=== PATIENT | male | born 1960 | race Caucasian/White ===

== ENCOUNTER 2017-09-29 19:44 | Emergency (ER) | payer MEDICAID, OTHER, SELFPAY ==
[2017-09-29 20:20] LABS: BASO % 0.4 % (0.0-1.0); EOS # 0.1 10^3/uL (0.0-0.50); EOS % 0.7 % (0.0-3.0); HEMATOCRIT 47.3 % (42.0-52.0); HEMOGLOBIN 16.5 g/dl (13.5-17.5); IMMATURE GRANULOCYTE % 0.5 % (0-3.0); LYMPH # 1.9 10^3/uL (1.5-4.5); LYMPH % 22.2 % (24.0-44.0); MEAN CORPUSCULAR HEMOGLOBIN 32.4 pg (27.0-33.0); MEAN CORPUSCULAR HGB CONC 34.9 g/dl (32.0-36.5); MEAN CORPUSCULAR VOLUME 92.9 fl (80.0-96.0); MONO # 0.6 10^3/uL (0.0-0.8); MONO % 6.6 % (0.0-5.0); NEUTROPHILS # 5.9 10^3/uL (1.8-7.7); NEUTROPHILS % 69.6 % (36.0-66.0); PLATELET COUNT, AUTOMATED 228 10^3/uL (150-450); RED BLOOD COUNT 5.09 10^6/uL (4.30-6.10); RED CELL DISTRIBUTION WIDTH 11.6 % (11.5-14.5); WHITE BLOOD COUNT 8.5 10^3/uL (4.0-10.0)
[2017-09-29] MEDS: MECLIZINE 25 MG TABLET PO (20:29)
[2017-09-29] MEDS: LABETALOL HCL 100 MG/20 ML VIAL IV (20:30)
[2017-09-29] MEDS: NS 1,000 ML IV (20:30)
[2017-09-29 20:44] LABS: ALBUMIN 4.1 GM/DL (3.2-5.2); ALBUMIN/GLOBULIN RATIO 1.05 (1.00-1.93); ALKALINE PHOSPHATASE 88 U/L (45-117); ALT/SGPT 36 U/L (12-78); ANION GAP 6 MEQ/L (8-16); AST/SGOT 15 U/L (7-37); BILIRUBIN,DIRECT 0.2 MG/DL (0.0-0.2); BILIRUBIN,TOTAL 0.6 MG/DL (0.2-1.0); BLOOD UREA NITROGEN 13 MG/DL (7-18); CALCIUM LEVEL 8.8 MG/DL (8.5-10.1); CARBON DIOXIDE LEVEL 26 MEQ/L (21-32); CHLORIDE LEVEL 106 MEQ/L (98-107); CPK CREATINE PHOSPHOKINASE 92 U/L (39-308); CREATININE FOR GFR 1.12 MG/DL (0.70-1.30); ETHYL ALCOHOL (ETHANOL) < 0.003 % (0.000-0.010); GLOMERULAR FILTRATION RATE > 60.0 (>56); GLUCOSE, FASTING 103 MG/DL (70-100); POTASSIUM SERUM 3.8 MEQ/L (3.5-5.1); SALICYLATE LEVEL 3.7 MG/DL (5.0-30.0); SODIUM LEVEL 138 MEQ/L (136-145); TROPONIN I < 0.02 NG/ML (< 0.10)
[2017-09-29 20:47] LABS: ACETAMINOPHEN LEVEL < 2.0 UG/ML (10.0-30.0)
[2017-09-29 20:48] LABS: CK-MB VALUE MASS 1.7 NG/ML (<3.6); LITHIUM LEVEL 1.13 MEQ/L (0.60-1.20); MB/CK RELATIVE INDEX 1.84 (< OR =4)
== END 2017-09-29 22:46 | disposition home or self-care (01) ==
LOC: M ED 19:44
DX: H81.10 Benign paroxysmal vertigo, unspecified ear (principal); F90.9 Attention-deficit hyperactivity disorder, unspecified type; Z82.49 Family history of ischemic heart disease and other diseases of the circulatory system
CPT/HCPCS: 71045

== ENCOUNTER 2017-10-15 15:11 | Inpatient (IN) | payer MEDICAID, OTHER, SELFPAY ==
[2017-10-15] MEDS: LORazepam 1 MG TAB PO ×2 (15:51→20:59)
[2017-10-15 16:20] LABS: HEMATOCRIT 45.5 % (42.0-52.0); HEMOGLOBIN 15.8 g/dl (13.5-17.5); MEAN CORPUSCULAR HEMOGLOBIN 32.7 pg (27.0-33.0); MEAN CORPUSCULAR HGB CONC 34.7 g/dl (32.0-36.5); MEAN CORPUSCULAR VOLUME 94.2 fl (80.0-96.0); PLATELET COUNT, AUTOMATED 227 10^3/uL (150-450); RED BLOOD COUNT 4.83 10^6/uL (4.30-6.10); RED CELL DISTRIBUTION WIDTH 11.8 % (11.5-14.5); WHITE BLOOD COUNT 9.4 10^3/uL (4.0-10.0)
[2017-10-15 17:00] LABS: AMPHETAMINES LEVEL URINE POSITIVE (NEGATIVE); BARBITURATES URINE NEGATIVE (NEGATIVE); BENZODIAZEPINES URINE NEGATIVE (NEGATIVE); CANNABINOIDS URINE NEGATIVE (NEGATIVE); COCAINE METABOLITE URINE NEGATIVE (NEGATIVE); METHADONE URINE NEGATIVE (NEGATIVE); OPIATES URINE POSITIVE (NEGATIVE); PHENCYCLIDINE URINE NEGATIVE (NEGATIVE)
[2017-10-15 17:04] LABS: ACETAMINOPHEN LEVEL < 2.0 UG/ML (10.0-30.0); ALBUMIN 4.2 GM/DL (3.2-5.2); ALBUMIN/GLOBULIN RATIO 1.14 (1.00-1.93); ALKALINE PHOSPHATASE 104 U/L (45-117); ALT/SGPT 39 U/L (12-78); ANION GAP 6 MEQ/L (8-16); AST/SGOT 20 U/L (7-37); BILIRUBIN,DIRECT 0.2 MG/DL (0.0-0.2); BILIRUBIN,TOTAL 0.8 MG/DL (0.2-1.0); BLOOD UREA NITROGEN 12 MG/DL (7-18); CALCIUM LEVEL 8.9 MG/DL (8.5-10.1); CARBON DIOXIDE LEVEL 27 MEQ/L (21-32); CHLORIDE LEVEL 105 MEQ/L (98-107); CREATININE FOR GFR 1.12 MG/DL (0.70-1.30); GLOMERULAR FILTRATION RATE > 60.0 (>56); GLUCOSE, FASTING 87 MG/DL (70-100); POTASSIUM SERUM 4.2 MEQ/L (3.5-5.1); SALICYLATE LEVEL 5.8 MG/DL (5.0-30.0); SODIUM LEVEL 138 MEQ/L (136-145); THYROID STIMULATING HORMONE 0.847 uIU/ML (0.358-3.740); TOTAL PROTEIN 7.9 GM/DL (6.4-8.2)
[2017-10-15 17:07] LABS: ETHYL ALCOHOL (ETHANOL) < 0.003 % (0.000-0.010)
[2017-10-15 17:08] LABS: LITHIUM LEVEL < 0.20 MEQ/L (0.60-1.20)
[2017-10-15] MEDS ORDERED: MOM 30ML SUSPENSION UDC PO (18:45)
[2017-10-15] MEDS ORDERED: MAALOX 30 ML SUSP *UDC PO (18:45)
[2017-10-15] MEDS ORDERED: ACETAMINOPHEN TAB 650MG DOSE (2X325MG) PO (18:45)
[2017-10-15] MEDS: NICOTINE 21MG/24HR 1 EA TRANSDERMAL TD (21:25)
[2017-10-15] MEDS ORDERED: LORazepam 2 MG TAB PO (22:30)
[2017-10-15] MEDS ORDERED: MECLIZINE 25 MG TABLET PO (22:30)
[2017-10-15] MEDS: traZODone 50 MG TAB PO (22:33)
[2017-10-15] MEDS: QUEtiapine FUMARATE 100 MG TAB PO (22:33)
[2017-10-15] MEDS: THIAMINE 100 MG TAB PO (22:34)
[2017-10-16] MEDS ORDERED: MULTIVITAMINS/MINERALS THERAP 1 TAB PO (09:00)
[2017-10-16] MEDS: clonazePAM 1 MG TAB PO ×3 (09:00→20:34)
[2017-10-16] MEDS ORDERED: FOLIC ACID 1 MG TAB PO (09:00)
[2017-10-16] MEDS: INFLUENZA QUADRIVALENT PF VACCINE 0.5ML SYRINGE (90686) IM (09:29)
[2017-10-16] MEDS: THIAMINE 100 MG TAB PO ×2 (09:40→20:34)
[2017-10-16] MEDS: NICOTINE 21MG/24HR 1 EA TRANSDERMAL TD (09:41)
[2017-10-16] MEDS ORDERED: PILL CRUSHER/CUTTER 1 EACH XX (10:45)
[2017-10-16] MEDS: GABAPENTIN 100 MG CAP PO (12:05)
[2017-10-16] MEDS: GABAPENTIN 300 MG CAP PO ×2 (17:51→20:34)
[2017-10-16] MEDS: QUEtiapine FUMARATE 100 MG TAB PO (20:34)
[2017-10-17] MEDS: clonazePAM 1 MG TAB PO (08:44)
[2017-10-17] MEDS: GABAPENTIN 300 MG CAP PO (08:44)
[2017-10-17] MEDS: THIAMINE 100 MG TAB PO (08:44)
[2017-10-17] MEDS: NICOTINE 21MG/24HR 1 EA TRANSDERMAL TD (08:44)
[2017-10-17] MEDS: PARoxetine 10MG TABLET PO (08:45)
[2017-10-17] MEDS: GABAPENTIN 100 MG CAP PO (14:56)
[2017-10-17] MEDS ORDERED: QUEtiapine FUMARATE 50 MG TAB PO (21:00)
[2017-10-17] MEDS ORDERED: clonazePAM 1 MG TAB PO (21:00)
== END 2017-10-17 15:15 | disposition home or self-care (01) | DRG 756 ==
LOC: M ED 15:11 → M ED INP 18:31 → M PSY 21:47
DX: F41.1 Generalized anxiety disorder (principal); F33.2 Major depressive disorder, recurrent severe without psychotic features; F10.10 Alcohol abuse, uncomplicated; F17.210 Nicotine dependence, cigarettes, uncomplicated; I10 Essential (primary) hypertension; Z79.899 Other long term (current) drug therapy

== ENCOUNTER → 2018-02-27 | Outpatient (CLI) | payer OTHER, MEDICAID | LOC: M PAIN 11:30 | DX: M54.5 Low back pain (principal); G89.29 Other chronic pain; I10 Essential (primary) hypertension; F32.9 Major depressive disorder, single episode, unspecified; F41.9 Anxiety disorder, unspecified; M19.90 Unspecified osteoarthritis, unspecified site; F17.200 Nicotine dependence, unspecified, uncomplicated | CPT/HCPCS: G0463 ==

== ENCOUNTER → 2018-03-03 | Outpatient (CLI) | payer OTHER, MEDICAID | LOC: M RAD 11:34 | DX: M43.16 Spondylolisthesis, lumbar region (principal); M47.16 Other spondylosis with myelopathy, lumbar region; M54.5 Low back pain | CPT/HCPCS: 72110 ==

== ENCOUNTER → 2018-03-05 | Outpatient (CLI) | payer OTHER, MEDICAID | LOC: M PAIN 12:30 | DX: M54.5 Low back pain (principal); G89.29 Other chronic pain; F32.9 Major depressive disorder, single episode, unspecified; I10 Essential (primary) hypertension; M19.90 Unspecified osteoarthritis, unspecified site; F41.9 Anxiety disorder, unspecified; F17.210 Nicotine dependence, cigarettes, uncomplicated; Z79.899 Other long term (current) drug therapy | CPT/HCPCS: G0463 ==

== ENCOUNTER → 2018-03-19 | Outpatient (CLI) | payer OTHER, MEDICAID | LOC: M PAIN 15:00 | DX: M54.5 Low back pain (principal); G89.29 Other chronic pain; F32.9 Major depressive disorder, single episode, unspecified; F41.9 Anxiety disorder, unspecified; M19.90 Unspecified osteoarthritis, unspecified site; I10 Essential (primary) hypertension; F17.210 Nicotine dependence, cigarettes, uncomplicated; Z79.899 Other long term (current) drug therapy | CPT/HCPCS: G0463 ==

== ENCOUNTER → 2018-04-08 | Outpatient (CLI) | payer OTHER, MEDICAID | LOC: M PAIN 13:45 | DX: M54.5 Low back pain (principal); Z79.891 Long term (current) use of opiate analgesic; M25.50 Pain in unspecified joint; F41.9 Anxiety disorder, unspecified; F32.9 Major depressive disorder, single episode, unspecified; I10 Essential (primary) hypertension; M19.90 Unspecified osteoarthritis, unspecified site; F17.210 Nicotine dependence, cigarettes, uncomplicated; Z79.899 Other long term (current) drug therapy | CPT/HCPCS: G0463 ==

== ENCOUNTER → 2018-04-30 | Outpatient (CLI) | payer OTHER, MEDICAID | LOC: M PAIN 15:00 | DX: M54.5 Low back pain (principal); M25.50 Pain in unspecified joint; F32.9 Major depressive disorder, single episode, unspecified; F41.9 Anxiety disorder, unspecified; M19.90 Unspecified osteoarthritis, unspecified site; I10 Essential (primary) hypertension; F17.210 Nicotine dependence, cigarettes, uncomplicated; Z79.899 Other long term (current) drug therapy | CPT/HCPCS: G0463 ==

== ENCOUNTER → 2018-06-01 | Outpatient (CLI) | payer OTHER, MEDICAID ==
[~2018-06-01] MED LIST: AMLO2.5T2 PO; AMLO25TA PO; APAP PO; CLON1TAB8 PO; DEXT10TA2 PO; DEXTROAMPHETAMINE; GABA-1171 PO; HYDR-3719 PO; HYDROCODONE PO; LITH300T2 PO; MECL-68 PO; PARO5TAB PO; QUET1TAB8 PO; QUET5TAB PO
--- NOTE | 2018-06-25 01:06 | ECWPNPC ---
PATIENT NAME: ELVA DUTTON : 1960 GENDER: MALE VISIT DATE: 06/01/2018 DISCHARGE DATE: 06/01/18 1532 VISIT LOCKED DATE TIME: PHYSICIAN: NAOMI MORRIS RESOURCE: NAOMI MORRIS REASON FOR APPOINTMENT 1. MED MGMT HISTORY OF PRESENT ILLNESS DEPRESSION SCREENING: PHQ-2 IN LAST TWO WEEKS HAVE YOU BEEN BOTHERED BY LITTLE INTEREST OR PLEASURE IN DOING THINGSNO FEELING DOWN, DEPRESSED, OR HOPELESSNO HISTORY OF PRESENT ILLNESS: HERE FOR 1 MONTH MEDICINE MANAGEMENT FOR CHRONIC PAIN.HE BROUGHT IN MEDICATION THAT IS APPROPRIATE FOR WHAT WAS DISPENSED.VERY DEPRESSED TODAY.DENIES SUICIDAL IDEATIONS.PAIN IS ACROSS LOW BACK.ALSO COMPLAINING OF LEFT SHOULDER PAIN. PAIN THE PATIENT DESCRIBES THE PAIN... THE PATIENT DESCRIBES THE PAIN... FALL RISK SCREENING: SCREENING :NO FALLS IN THE PAST YEAR CURRENT MEDICATIONS TAKING REXULTI 0.25 MG TABLET 1 TABLET ORALLY ONCE A DAY, NOTES: UNSURE OF DOSE TAKING ALPRAZOLAM 1 MG TABLET 1 TABLET ORALLY TWICE A DAY, NOTES: UNSURE OF DOSE TAKING HYDROCODONE-ACETAMINOPHEN 10-325 MG TABLET 1 TABLET NEEDED ORALLY Q8H PRN MDD3 TAKING ZOFRAN 4 MG TABLET 1 TAB ORALLY TWICE A DAY NEEDED FOR NAUSEA TAKING LITHIUM CARBONATE - POWDER ONCE A DAY, NOTES: CURRENTLY OUT OF TAKING VIIBRYD 10 MG TABLET 1 TAB ORALLY DAILY NOT-TAKING TRAZODONE HCL 50 MG TABLET ORALLY NOT-TAKING PAXIL 20 MG TABLET 1 TABLET IN THE MORNING ORALLY ONCE A DAY MEDICATION LIST REVIEWED AND RECONCILED WITH THE PATIENT PAST MEDICAL HISTORY DEPRESSION/ANXIETY - CELEXA AND ZOLOFT IN THE PAST, CURRENTLY ON TRAZODONE ONLY QHS OSTEOARTHRITIS - LUMBAGO HYPERTENSION ALLERGIES N.K.D.A. SURGICAL HISTORY CYST REMOVAL RIGHT THUMB REPAIR OF LACERATION SOCIAL HISTORY GENERAL: TOBACCO USE ARE YOU A:CURRENT SMOKER ARE YOU INTERESTED IN QUITTING?NOT READY TO QUIT COUNSELED THE PATIENT ON SMOKING EFFECTS, EDUCATION [id number]/10/2018 HOW MANY CIGARETTES A DAY DO YOU SMOKE?11-20 HOW SOON AFTER YOU WAKE UP DO YOU SMOKE YOUR FIRST CIGARETTE?6-30 MIN HOW OFTEN DO YOU SMOKE CIGARETTES?EVERY DAY PATIENT COUNSELED ON THE DANGERS OF TOBACCO USE AND URGED TO QUIT:06/01/2018 RECREATIONAL DRUG USE DRUG USE?NO CAFFEINE CAFFEINE USE?NO SCIENTOLOGIST [id number] TENRIISM LANGUAGE LANGUAGES SPOKEN:IRISH LEARNING BARRIERS / SPECIAL NEEDS BARRIERS TO LEARNING?NO HEARING IMPAIRED?NO VISION IMPAIRED?NO COGNITIVELY IMPAIRED?NO READINESS TO LEARN?YES LEARNING PREFERENCES?NO LEARNING CAPABILITIES PRESENT?YES EMOTIONAL BARRIERS?NO SPECIAL DEVICES?NO SUPERVISOR SALVAGE NEEDED?NO OCCUPATION: [employer]AND[employer]. DIET: REGULAR. 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 PAIN CLINIC PFS, CLERGY, PUBLIC HEALTH REFERRALS PFS REFERRAL NEEDED?NO CLERGY REFERRAL NEEDED?NO PUBLIC HEALTH REFERRAL NEEDED?NO WAS THE PROVIDER NOTIFIED OF ANY PERTINENT INFO?NO HAS THE PATIENT BEEN EDUCATED REGARDING HIS/HER PLAN OF CARE?YES HAS THE PATIENT BEEN EDUCATED REGARDING PAIN, THE RISK FOR PAIN, THE IMPORTANCE OF EFFECTIVE PAIN MANAGEMENT, AND THE PAIN ASSESSMENT PROCESS?YES ADVANCE DIRECTIVE ADVANCE DIRECTIVE DISCUSSED WITH PATIENT:YES PT HAS NO ADVANCED DIRECTIVES, DECLINES INFORMATION REVIEWED WITH PT 03/19/18 1510 BVREVIEWED WITH PT 04/08/18 1411 BVREVIEWED WITH PATIENT 04/30/18 1517 JS. HOSPITALIZATION/MAJOR DIAGNOSTIC PROCEDURE [facility] INPATIENT ADMISSION 09/2017 REVIEW OF SYSTEMS REVIEWED BY: PROVIDER: NAOMI VALDEZ . CONSTITUTIONAL: ANY CHANGE IN YOUR MEDICAL CONDITION? NO . CHILLS NO . FEVER NO . INFECTION: DO YOU HAVE NEW INFECTIONS? NO . DO YOU HAVE HISTORY OF MRSA? NO . MUSCULOSKELETAL: ANY NEW PATTERNS OF PAIN OR NUMBNESS? NO . GASTROENTEROLOGY: ANY NEW CHANGE IN BOWEL CONTROL? NO . GENITOURINARY: ANY NEW CHANGE IN BLADDER CONTROL? NO . IS THERE A CHANCE YOU COULD BE ? NO . HEMATOLOGY/LYMPH: DO YOU TAKE ANY BLOOD THINNERS? (FOR EXAMPLE- COUMADIN, PLAVIX, AGGRENOX, PLATEL, PRADAXA, OR XARELTO) NO . WHEN WAS YOUR LAST DOSE? DATE: TIME: . NEUROLOGY: HAVE YOU FALLEN IN THE PAST 6 MONTHS? NO . ANY NEW EXTREMITY NUMBNESS OR WEAKNESS? YES, LEFT SHOULDER PAIN X 3 WEEKS, PT ATTRIBUTES PAIN TO SNOW REMOVAL . CARDIOLOGY: DO YOU HAVE A PACEMAKER OR DEFIBRILLATOR? NO . RESPIRATORY: HAVE YOU BEEN SICK IN THE PAST WEEK? NO . FEVER NO . FLU LIKE SYMPTOMS? NO . COUGH NO . INTEGUMENTARY: DO YOU HAVE ANY RASHES OR OPEN SORES? NO . ALLERGIC/IMMUNO: ARE YOU ALLERGIC TO SHELLFISH OR IV DYE? NO . ANY NEW ALLERGIES? NO . PSYCHIATRIC: DO YOU HAVE THOUGHTS OF HURTING YOURSELF OR SOMEONE ELSE? NO . ARE YOU ABUSED, NEGLECTED, OR IN AN UNSAFE ENVIRONMENT? NO . ENDOCRINOLOGY: ARE YOU DIABETIC? NO . OTHER: DO YOU NEED ANY PRESCRIPTIONS? YES, NORCO . IF YES, PLEASE LIST: ____ . ANY NEW PROBLEMS WITH YOUR MEDICATIONS? NO . WHEN DID YOU LAST EAT? ____ . WHEN DID YOU LAST DRINK? ____ . WHAT DID YOU LAST DRINK? ____ . NAME OF PERSON DRIVING YOU HOME? ____ . DO YOU HAVE ANY OTHER QUESTIONS OR CONCERNS NO . VITAL SIGNS WT 188.8 LBS, HT 5'7", BMI 29.57 INDEX, BP 157/96 MM HG, HR 94 /MIN, RR 18 /MIN, TEMP 98.4 F, OXYGEN SAT % 92%, NA INITIALS AW 1438, REVIEWED BY: EM. EXAMINATION GENERAL EXAMINATION: GENERAL APPEARANCE:AWAKE,ALERT ,PLEAASANT . PSYCHAFFECT NORMAL . LUNGS:LUNG WISDOM ARE CLEAR TO AUSCULTATION BILATERALLY. GOOD MOVEMENT OF AIR . HEART:S1, S2 IN A REGULAR RATE AND RHYTHM. NO SIGNIFICANT MURMURS, RUBS OR GALLOPS NOTED . ASSESSMENTS LOW BACK PAIN - M54.5 (PRIMARY) CHRONIC PRESCRIPTION OPIATE USE - Z79.891 GENERALIZED JOINT PAIN - M25.50 TREATMENT LOW BACK PAIN REFILL HYDROCODONE-ACETAMINOPHEN TABLET, 10-325 MG, 1 TABLET NEEDED, ORALLY, Q8H PRN MDD3, 30 DAY(S), 90, REFILLS 0 NOTES: TAKE IBUPROFEN 200MG 3 TAB 3X PER DAY, ISTOP REGISTRY REVIEWED AND DEMONSTRATES COMPLLIANCE. (REF # [id number] ) BRINGS IN MEDICATIONS WHICH IS APPROPRIATE FOR WHAT WAS DISPENSED. RECENT URINE TOXICOLOGY REVIEWED. NO UNAUTHORIZED MEDICATIONS. NO ILLICIT SUBSTANCES AND PRESCRIBED MEDICATIONS WERE PRESENT. , RISKS AND BENEFITS OF NARCOTIC/OPIOD MEDICATIONS WERE REVIEWED WITH PATIENT - THIS INCLUDES BUT IS NOT LIMITED TO RISK OF DEPENDANCE/DEVELOPMENT OF ADDICTION, MOOD DISTURBANCE AND DEPRESSION, OSTEOPOROSIS, HORMONAL AND LABIDAL CHANGES, RESPIRATORY DEPRESSION AND . PATIENT IS ADVISED NOT TO DRIVE OR DRINK ALCOHOL WHILE ON THESE MEDICATIONS. PROCEDURE CODES FA211 ESTABILISHED PATIENT [facility] CHARGE DISPOSITION & COMMUNICATION FOLLOW UP 6 WEEKS ELECTRONICALLY SIGNED BY COURTNEY AMADO ON 06/24/2018 AT 01:53 PM EST DISCLAIMER : THIS IS A VISIT SUMMARY EXTRACTED FROM THE ECLINICALcompareit[employer] CHART. IT IS NOT A COPY OF THE ECLINICALWORKS PROGRESS NOTE. CAROLE
== END ==
LOC: M PAIN 14:30
PROVIDERS: ATTEND Nurse Practitioner Family
DX: G89.29 Other chronic pain (principal); M54.5 Low back pain; M25.50 Pain in unspecified joint; F32.9 Major depressive disorder, single episode, unspecified; F41.9 Anxiety disorder, unspecified; M19.90 Unspecified osteoarthritis, unspecified site; I10 Essential (primary) hypertension; F17.210 Nicotine dependence, cigarettes, uncomplicated; Z79.891 Long term (current) use of opiate analgesic; Z79.899 Other long term (current) drug therapy

== ENCOUNTER → 2018-07-13 | Outpatient (CLI) | payer OTHER, MEDICAID ==
[~2018-07-13] MED LIST changes: -AMLO2.5T2 PO; +AMLO2.5T3 PO
--- NOTE | 2018-07-24 00:18 | ECWPNPC ---
PATIENT NAME: ELVA DUTTON : 1960 GENDER: MALE VISIT DATE: 07/13/2018 DISCHARGE DATE: 07/13/18 1038 VISIT LOCKED DATE TIME: PHYSICIAN: NAOMI MORRIS RESOURCE: NAOMI MORRIS REASON FOR APPOINTMENT 1. 6 WEEKS, MED MGMNT HISTORY OF PRESENT ILLNESS HISTORY OF PRESENT ILLNESS: HERE FOR 1 MONTH MEDICINE MANAGEMENT FOR CHRONIC PAIN.VERY DEPRESSED TODAY.DENIES SUICIDAL IDEATIONS.PAIN IS ACROSS LOW BACK.ALSO COMPLAINING OF LEFT SHOULDER PAIN.RATING PAIN VAS 8/10. PAIN THE PATIENT DESCRIBES THE PAIN... THE PATIENT DESCRIBES THE PAIN... THE PATIENT DESCRIBES THE PAIN... FALL RISK SCREENING: SCREENING :NO FALLS IN THE PAST YEAR CURRENT MEDICATIONS TAKING REXULTI 0.25 MG TABLET 1 TABLET ORALLY ONCE A DAY, NOTES: UNSURE OF DOSE TAKING ALPRAZOLAM 1 MG TABLET 1 TABLET ORALLY TWICE A DAY, NOTES: UNSURE OF DOSE TAKING LITHIUM CARBONATE - POWDER ONCE A DAY, NOTES: CURRENTLY OUT OF TAKING VIIBRYD 10 MG TABLET 1 TAB ORALLY DAILY TAKING HYDROCODONE-ACETAMINOPHEN 10-325 MG TABLET 1 TABLET NEEDED ORALLY Q8H PRN MDD3 NOT-TAKING ZOFRAN 4 MG TABLET 1 TAB ORALLY TWICE A DAY NEEDED FOR NAUSEA UNKNOWN TRAZODONE HCL 50 MG TABLET ORALLY UNKNOWN PAXIL 20 MG TABLET 1 TABLET IN THE MORNING ORALLY ONCE A DAY MEDICATION LIST REVIEWED AND RECONCILED WITH THE PATIENT PAST MEDICAL HISTORY DEPRESSION/ANXIETY - CELEXA AND ZOLOFT IN THE PAST, CURRENTLY ON TRAZODONE ONLY QHS OSTEOARTHRITIS - LUMBAGO HYPERTENSION ALLERGIES N.K.D.A. SURGICAL HISTORY CYST REMOVAL RIGHT THUMB REPAIR OF LACERATION HOSPITALIZATION/MAJOR DIAGNOSTIC PROCEDURE [facility] INPATIENT ADMISSION 09/2017 REVIEW OF SYSTEMS REVIEWED BY: PROVIDER: NAOMI VALDEZ . CONSTITUTIONAL: ANY CHANGE IN YOUR MEDICAL CONDITION? NO . CHILLS NO . FEVER NO . INFECTION: DO YOU HAVE NEW INFECTIONS? NO . DO YOU HAVE HISTORY OF MRSA? NO . MUSCULOSKELETAL: ANY NEW PATTERNS OF PAIN OR NUMBNESS? LEFT SHOULDER IS REALLY HURTING ..UNABLE TO LEFT UP . GASTROENTEROLOGY: ANY NEW CHANGE IN BOWEL CONTROL? NO . GENITOURINARY: ANY NEW CHANGE IN BLADDER CONTROL? NO . IS THERE A CHANCE YOU COULD BE ? NO . HEMATOLOGY/LYMPH: DO YOU TAKE ANY BLOOD THINNERS? (FOR EXAMPLE- COUMADIN, PLAVIX, AGGRENOX, PLATEL, PRADAXA, OR XARELTO) NO . WHEN WAS YOUR LAST DOSE? DATE: TIME: . NEUROLOGY: HAVE YOU FALLEN IN THE PAST 12 MONTHS? NO . ANY NEW EXTREMITY NUMBNESS OR WEAKNESS? NO . CARDIOLOGY: DO YOU HAVE A PACEMAKER OR DEFIBRILLATOR? NO . RESPIRATORY: HAVE YOU BEEN SICK IN THE PAST WEEK? NO . FEVER NO . FLU LIKE SYMPTOMS? NO . COUGH NO . INTEGUMENTARY: DO YOU HAVE ANY RASHES OR OPEN SORES? NO . ALLERGIC/IMMUNO: ARE YOU ALLERGIC TO IV DYE? NO . ANY NEW ALLERGIES? NO . PSYCHIATRIC: DO YOU HAVE THOUGHTS OF HURTING YOURSELF OR SOMEONE ELSE? NO PT DOES SHARE THAT HE IS QUITE DEPRESSESD, BUT WHEN ASKED HE DOES STATE HE IS SAFE . ARE YOU ABUSED, NEGLECTED, OR IN AN UNSAFE ENVIRONMENT? NO . ENDOCRINOLOGY: ARE YOU DIABETIC? NO . OTHER: DO YOU NEED ANY PRESCRIPTIONS? YES HYDROCODONE . IF YES, PLEASE LIST: ____ . ANY NEW PROBLEMS WITH YOUR MEDICATIONS? NO . WHEN DID YOU LAST EAT? ____ . WHEN DID YOU LAST DRINK? ____ . WHAT DID YOU LAST DRINK? ____ . NAME OF PERSON DRIVING YOU HOME? ____ . DO YOU HAVE ANY OTHER QUESTIONS OR CONCERNS NO . VITAL SIGNS WT 188.6 LBS, HT 5'7", BMI 29.54 INDEX, BP 163/95 MM HG, HR 102 /MIN, RR 18 /MIN, TEMP 97.8 F, OXYGEN SAT % 97%, NA INITIALS SC 09:31, REVIEWED BY: KG. EXAMINATION GENERAL EXAMINATION: GENERAL APPEARANCE:AWAKE,ALERT ,PLEAASANT . PSYCHAFFECT NORMAL . LUNGS:LUNG WISDOM ARE CLEAR TO AUSCULTATION BILATERALLY. GOOD MOVEMENT OF AIR . HEART:S1, S2 IN A REGULAR RATE AND RHYTHM. NO SIGNIFICANT MURMURS, RUBS OR GALLOPS NOTED . SHOULDER / UPPER ARM: SHOULDER:LEFT, PALPATION ELICITS TENDERNESS OVER FRONT AND BACK OF SHOULDER . RANGE OF MOTION:LIMITED ABDUCTION DUE TO PAIN. ASSESSMENTS LEFT ANTERIOR SHOULDER PAIN - M25.512 (PRIMARY) LOW BACK PAIN - M54.5 TREATMENT LEFT ANTERIOR SHOULDER PAIN REFILL HYDROCODONE-ACETAMINOPHEN TABLET, 10-325 MG, 1 TABLET NEEDED, ORALLY, Q8H PRN MDD3, 30 DAY(S), 90, REFILLS 0 START KETOROLAC TROMETHAMINE TABLET, 10 MG, 1 TABLET WITH FOOD OR MILK NEEDED, ORALLY, EVERY 6 HRS, 5 DAY(S), 20, REFILLS 0 NOTES: ISTOP REGISTRY REVIEWED AND DEMONSTRATES COMPLLIANCE. (REF #[id number] ) BRINGS IN MEDICATIONS WHICH IS APPROPRIATE FOR WHAT WAS DISPENSED. RECENT URINE TOXICOLOGY REVIEWED. NO UNAUTHORIZED MEDICATIONS. NO ILLICIT SUBSTANCES AND PRESCRIBED MEDICATIONS WERE PRESENT. , RISKS AND BENEFITS OF NARCOTIC/OPIOD MEDICATIONS WERE REVIEWED WITH PATIENT - THIS INCLUDES BUT IS NOT LIMITED TO RISK OF DEPENDANCE/DEVELOPMENT OF ADDICTION, MOOD DISTURBANCE AND DEPRESSION, OSTEOPOROSIS, HORMONAL AND LABIDAL CHANGES, RESPIRATORY DEPRESSION AND . PATIENT IS ADVISED NOT TO DRIVE OR DRINK ALCOHOL WHILE ON THESE MEDICATIONS. PROCEDURE CODES FA211 ESTABILISHED PATIENT [facility] CHARGE DISPOSITION & COMMUNICATION FOLLOW UP 2 MONTHS ELECTRONICALLY SIGNED BY COURTNEY AMADO ON 07/23/2018 AT 05:16 PM EST DISCLAIMER : THIS IS A VISIT SUMMARY EXTRACTED FROM THE ECLINICALWORKS CHART. IT IS NOT A COPY OF THE ECLINICALWORKS PROGRESS NOTE. LIDAD
== END ==
LOC: M PAIN 09:15
PROVIDERS: ATTEND Nurse Practitioner Family
DX: M25.512 Pain in left shoulder (principal); M54.5 Low back pain; G89.29 Other chronic pain; I10 Essential (primary) hypertension; F32.9 Major depressive disorder, single episode, unspecified; F41.9 Anxiety disorder, unspecified; M19.90 Unspecified osteoarthritis, unspecified site; Z79.899 Other long term (current) drug therapy

== ENCOUNTER → 2018-09-10 | Outpatient (CLI) | payer OTHER, MEDICAID ==
--- NOTE | 2018-09-25 01:52 | ECWPNPC ---
PATIENT NAME: ELVA DUTTON : 1960 GENDER: MALE VISIT DATE: 09/10/2018 DISCHARGE DATE: 09/10/18 1420 VISIT LOCKED DATE TIME: PHYSICIAN: NAOMI MORRIS RESOURCE: NAOMI MORRIS REASON FOR APPOINTMENT 1. BACK HISTORY OF PRESENT ILLNESS HISTORY OF PRESENT ILLNESS: HERE FOR 1 MONTH MEDICINE MANAGEMENT FOR CHRONIC PAIN.VERY DEPRESSED TODAY.DENIES SUICIDAL IDEATIONS.PAIN IS ACROSS LOW BACK.ALSO COMPLAINING OF LEFT SHOULDER PAIN.RATING PAIN VAS 8/10. PAIN THE PATIENT DESCRIBES THE PAIN... THE PATIENT DESCRIBES THE PAIN... THE PATIENT DESCRIBES THE PAIN... THE PATIENT DESCRIBES THE PAIN... FALL RISK SCREENING: SCREENING : NO FALLS IN THE PAST YEAR. CURRENT MEDICATIONS TAKING REXULTI 0.25 MG TABLET 1 TABLET ORALLY ONCE A DAY, NOTES: UNSURE OF DOSE TAKING ALPRAZOLAM 1 MG TABLET 1 TABLET ORALLY TWICE A DAY, NOTES: UNSURE OF DOSE TAKING LITHIUM CARBONATE - POWDER ONCE A DAY, NOTES: CURRENTLY OUT OF TAKING VIIBRYD 10 MG TABLET 1 TAB ORALLY DAILY TAKING HYDROCODONE-ACETAMINOPHEN 10-325 MG TABLET 1 TABLET NEEDED ORALLY Q8H PRN MDD3, NOTES: FILL ON 07/19/18 NOT-TAKING KETOROLAC TROMETHAMINE 10 MG TABLET 1 TABLET WITH FOOD OR MILK NEEDED ORALLY EVERY 6 HRS NOT-TAKING ZOFRAN 4 MG TABLET 1 TAB ORALLY TWICE A DAY NEEDED FOR NAUSEA NOT-TAKING TRAZODONE HCL 50 MG TABLET ORALLY NOT-TAKING PAXIL 20 MG TABLET 1 TABLET IN THE MORNING ORALLY ONCE A DAY MEDICATION LIST REVIEWED AND RECONCILED WITH THE PATIENT PAST MEDICAL HISTORY DEPRESSION/ANXIETY - CELEXA AND ZOLOFT IN THE PAST, CURRENTLY ON TRAZODONE ONLY QHS OSTEOARTHRITIS - LUMBAGO HYPERTENSION ALLERGIES N.K.D.A. SURGICAL HISTORY CYST REMOVAL RIGHT THUMB REPAIR OF LACERATION FAMILY HISTORY FATHER: 78 YRS, COLON CANCER, [place] IN LATE 50'S, DIAGNOSED WITH HEART DISEASE MOTHER: 74 YRS, KIDNEY DISEASE SOCIAL HISTORY GENERAL: TOBACCO USE ARE YOU A:CURRENT SMOKER ARE YOU INTERESTED IN QUITTING?NOT READY TO QUIT COUNSELED THE PATIENT ON SMOKING EFFECTS, EDUCATION [id number]/10/2018 HOW MANY CIGARETTES A DAY DO YOU SMOKE?11-20 HOW SOON AFTER YOU WAKE UP DO YOU SMOKE YOUR FIRST CIGARETTE?6-30 MIN HOW OFTEN DO YOU SMOKE CIGARETTES?EVERY DAY PATIENT COUNSELED ON THE DANGERS OF TOBACCO USE AND URGED TO QUIT:09/10/2018 LATEX QUESTIONNAIRE LATEX ALLERGY : HAVE YOU EVER DEVELOPED ANY TYPE OF REACTION AFTER HANDLING LATEX PRODUCTS SUCH RUBBER GLOVES, CONDOMS, DIAPHRAGMS, BALLOONS, SOCKS, OR UNDERWEAR?NO LATEX ALLERGY : HAVE YOU EVER DEVELOPED ANY TYPE OF REACTION DURING OR AFTER DENTAL APPOINTMENT, VAGINAL/RECTAL EXAMINATION, SURGICAL PROCEDURE, OR ANY OTHER EXPOSURE?NO LATEX RISK : HAVE YOU EVER HAD ANY DIFFICULTY BREATHING OR HIVES AFTER EATING OR HANDLING ANY FRUITS, OR VEGETABLES; SUCH KIWI, BANANAS, STONE FRUITS, OR CHESTNUTSNO LATEX RISK : DO YOU HAVE A PREVIOUS PERSONAL HISTORY OF MORE THAN NINE SURGERIES, SPINA BIFIDA, OR REPEATED CATHERTIZATIONS? NO LATEX RISK : ARE YOU FREQUENTLY EXPOSED TO LATEX PRODUCTS IN YOUR OCCUPATION?NO DATE ASKED : 09/10/2018 RECREATIONAL DRUG USE DRUG USE?NO CAFFEINE CAFFEINE USE?NO MANDAEISM [id number] CATHOLIC LANGUAGE LANGUAGES SPOKEN:[id number] LEARNING BARRIERS / SPECIAL NEEDS BARRIERS TO LEARNING?NO HEARING IMPAIRED?NO VISION IMPAIRED?NO COGNITIVELY IMPAIRED?NO READINESS TO LEARN?YES LEARNING PREFERENCES?NO LEARNING CAPABILITIES PRESENT?YES EMOTIONAL BARRIERS?NO SPECIAL DEVICES?NO IS PROJECT MANAGER NEEDED?NO OCCUPATION: [employer]. DIET: REGULAR. 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 PAIN CLINIC PFS, CLERGY, PUBLIC HEALTH REFERRALS PFS REFERRAL NEEDED?NO CLERGY REFERRAL NEEDED?NO PUBLIC HEALTH REFERRAL NEEDED?NO WAS THE PROVIDER NOTIFIED OF ANY PERTINENT INFO?NO HAS THE PATIENT BEEN EDUCATED REGARDING HIS/HER PLAN OF CARE?YES HAS THE PATIENT BEEN EDUCATED REGARDING PAIN, THE RISK FOR PAIN, THE IMPORTANCE OF EFFECTIVE PAIN MANAGEMENT, AND THE PAIN ASSESSMENT PROCESS?YES ADVANCE DIRECTIVE ADVANCE DIRECTIVE DISCUSSED WITH PATIENT:YES PT HAS NO ADVANCED DIRECTIVES, DECLINES INFORMATION REVIEWED WITH PT 03/19/18 1510 BVREVIEWED WITH PT 04/08/18 1411 BVREVIEWED WITH PATIENT 04/30/18 1517 ROBERTA. HOSPITALIZATION/MAJOR DIAGNOSTIC PROCEDURE [facility] INPATIENT ADMISSION 09/2017 REVIEW OF SYSTEMS REVIEWED BY: PROVIDER: NAOMI VALDEZ . CONSTITUTIONAL: ANY CHANGE IN YOUR MEDICAL CONDITION? NO . CHILLS NO . FEVER NO . INFECTION: DO YOU HAVE NEW INFECTIONS? NO . DO YOU HAVE HISTORY OF MRSA? NO . MUSCULOSKELETAL: ANY NEW PATTERNS OF PAIN OR NUMBNESS? NO . GASTROENTEROLOGY: ANY NEW CHANGE IN BOWEL CONTROL? NO . GENITOURINARY: ANY NEW CHANGE IN BLADDER CONTROL? NO . IS THERE A CHANCE YOU COULD BE ? NO . HEMATOLOGY/LYMPH: DO YOU TAKE ANY BLOOD THINNERS? (FOR EXAMPLE- COUMADIN, PLAVIX, AGGRENOX, PLATEL, PRADAXA, OR XARELTO) NO . WHEN WAS YOUR LAST DOSE? DATE: TIME: . NEUROLOGY: HAVE YOU FALLEN IN THE PAST 12 MONTHS? NO . ANY NEW EXTREMITY NUMBNESS OR WEAKNESS? NO . CARDIOLOGY: DO YOU HAVE A PACEMAKER OR DEFIBRILLATOR? NO . RESPIRATORY: HAVE YOU BEEN SICK IN THE PAST WEEK? NO . FEVER NO . FLU LIKE SYMPTOMS? NO . COUGH NO . INTEGUMENTARY: DO YOU HAVE ANY RASHES OR OPEN SORES? NO . ALLERGIC/IMMUNO: ARE YOU ALLERGIC TO IV DYE? NO . ANY NEW ALLERGIES? NO . PSYCHIATRIC: DO YOU HAVE THOUGHTS OF HURTING YOURSELF OR SOMEONE ELSE? NO . ARE YOU ABUSED, NEGLECTED, OR IN AN UNSAFE ENVIRONMENT? NO . ENDOCRINOLOGY: ARE YOU DIABETIC? NO . OTHER: DO YOU NEED ANY PRESCRIPTIONS? YES, HYDROCODONE . IF YES, PLEASE LIST: ____ . ANY NEW PROBLEMS WITH YOUR MEDICATIONS? NO . WHEN DID YOU LAST EAT? ____ . WHEN DID YOU LAST DRINK? ____ . WHAT DID YOU LAST DRINK? ____ . NAME OF PERSON DRIVING YOU HOME? ____ . DO YOU HAVE ANY OTHER QUESTIONS OR CONCERNS NO . VITAL SIGNS WT 188.6 LBS, HT 5'7", BMI 29.54 INDEX, BP 163/97 MM HG, REPEAT BP 144/92 MM HG, HR 107 /MIN, RR 18 /MIN, TEMP 98.1 F, OXYGEN SAT % 94%, SAFE IN ENV? (Y/N) Y, NA INITIALS SC 13:40, REVIEWED BY: WILBERT. EXAMINATION GENERAL EXAMINATION: GENERAL APPEARANCE:AWAKE,ALERT ,PLEAASANT . PSYCHAFFECT NORMAL . LUNGS:LUNG WISDOM ARE CLEAR TO AUSCULTATION BILATERALLY. GOOD MOVEMENT OF AIR . HEART:S1, S2 IN A REGULAR RATE AND RHYTHM. NO SIGNIFICANT MURMURS, RUBS OR GALLOPS NOTED . ASSESSMENTS LEFT ANTERIOR SHOULDER PAIN - M25.512 (PRIMARY) OTHER CHRONIC PAIN - G89.29 TREATMENT LEFT ANTERIOR SHOULDER PAIN REFILL HYDROCODONE-ACETAMINOPHEN TABLET, 10-325 MG, 1 TABLET NEEDED, ORALLY, Q8H PRN MDD3, 30 DAY(S), 90, REFILLS 0, NOTES: FILL ON 07/19/18 NOTES: ISTOP REGISTRY REVIEWED AND DEMONSTRATES COMPLLIANCE. RECENT URINE TOXICOLOGY REVIEWED. NO UNAUTHORIZED MEDICATIONS. NO ILLICIT SUBSTANCES AND PRESCRIBED MEDICATIONS WERE PRESENT. , RISKS AND BENEFITS OF NARCOTIC/OPIOD MEDICATIONS WERE REVIEWED WITH PATIENT - THIS INCLUDES BUT IS NOT LIMITED TO RISK OF DEPENDANCE/DEVELOPMENT OF ADDICTION, MOOD DISTURBANCE AND DEPRESSION, OSTEOPOROSIS, HORMONAL AND LABIDAL CHANGES, RESPIRATORY DEPRESSION AND . PATIENT IS ADVISED NOT TO DRIVE OR DRINK ALCOHOL WHILE ON THESE MEDICATIONS. PROCEDURE CODES FA211 ESTABILISHED PATIENT [facility] CHARGE DISPOSITION & COMMUNICATION FOLLOW UP 6 WEEKS (REASON: BRING MEDICATION) ELECTRONICALLY SIGNED BY COURTNEY AMADO ON 09/24/2018 AT 02:06 PM EDT DISCLAIMER : THIS IS A VISIT SUMMARY EXTRACTED FROM THE ECL[employer]ICALWORKS CHART. IT IS NOT A COPY OF THE ECL[employer]ICALWORKS PROGRESS NOTE. CAROLE
== END ==
LOC: M PAIN 13:30
PROVIDERS: ATTEND Nurse Practitioner Family
DX: M25.512 Pain in left shoulder (principal); G89.29 Other chronic pain; Z86.59 Personal history of other mental and behavioral disorders; I10 Essential (primary) hypertension; F17.210 Nicotine dependence, cigarettes, uncomplicated; Z79.899 Other long term (current) drug therapy

== ENCOUNTER → 2018-11-18 | Outpatient (CLI) | payer OTHER, MEDICAID ==
--- NOTE | 2018-11-30 00:12 | ECWPNPC ---
PATIENT NAME: ELVA DUTTON : 1960 GENDER: MALE VISIT DATE: 11/18/2018 DISCHARGE DATE: 11/18/18 1502 VISIT LOCKED DATE TIME: PHYSICIAN: NAOMI MORRIS RESOURCE: NAOMI MORRIS REASON FOR APPOINTMENT 1. MED MGMT HISTORY OF PRESENT ILLNESS HISTORY OF PRESENT ILLNESS: HERE FOR 1 MONTH MEDICINE MANAGEMENT FOR CHRONIC PAIN.VERY DEPRESSED TODAY.DENIES SUICIDAL IDEATIONS.PAIN IS ACROSS LOW BACK.ALSO COMPLAINING OF LEFT SHOULDER PAIN.RATING PAIN VAS 8/10. PAIN THE PATIENT DESCRIBES THE PAIN... THE PATIENT DESCRIBES THE PAIN... THE PATIENT DESCRIBES THE PAIN... THE PATIENT DESCRIBES THE PAIN... THE PATIENT DESCRIBES THE PAIN... PAIN THE PATIENT DESCRIBES THE PAIN... THE PATIENT DESCRIBES THE PAIN... THE PATIENT DESCRIBES THE PAIN... THE PATIENT DESCRIBES THE PAIN... THE PATIENT DESCRIBES THE PAIN... FALL RISK SCREENING: SCREENING :NO FALLS REPORTED IN THE LAST YEAR CURRENT MEDICATIONS TAKING REXULTI 0.25 MG TABLET 1 TABLET ORALLY ONCE A DAY, NOTES: UNSURE OF DOSE TAKING ALPRAZOLAM 1 MG TABLET 1 TABLET ORALLY TWICE A DAY, NOTES: UNSURE OF DOSE TAKING LITHIUM CARBONATE - POWDER ONCE A DAY, NOTES: CURRENTLY OUT OF TAKING VIIBRYD 10 MG TABLET 1 TAB ORALLY DAILY TAKING HYDROCODONE-ACETAMINOPHEN 10-325 MG TABLET 1 TABLET NEEDED ORALLY Q8H PRN MDD3, NOTES: FILL ON 07/19/18 NOT-TAKING KETOROLAC TROMETHAMINE 10 MG TABLET 1 TABLET WITH FOOD OR MILK NEEDED ORALLY EVERY 6 HRS NOT-TAKING ZOFRAN 4 MG TABLET 1 TAB ORALLY TWICE A DAY NEEDED FOR NAUSEA NOT-TAKING TRAZODONE HCL 50 MG TABLET ORALLY NOT-TAKING PAXIL 20 MG TABLET 1 TABLET IN THE MORNING ORALLY ONCE A DAY MEDICATION LIST REVIEWED AND RECONCILED WITH THE PATIENT PAST MEDICAL HISTORY DEPRESSION/ANXIETY - CELEXA AND ZOLOFT IN THE PAST, CURRENTLY ON TRAZODONE ONLY QHS OSTEOARTHRITIS - LUMBAGO HYPERTENSION ALLERGIES N.K.D.A. SURGICAL HISTORY CYST REMOVAL RIGHT THUMB REPAIR OF LACERATION FAMILY HISTORY FATHER: 78 YRS, COLON CANCER, [place] IN LATE 50'S, DIAGNOSED WITH HEART DISEASE MOTHER: 74 YRS, KIDNEY DISEASE SOCIAL HISTORY GENERAL: TOBACCO USE ARE YOU A:CURRENT SMOKER ARE YOU INTERESTED IN QUITTING?NOT READY TO QUIT COUNSELED THE PATIENT ON SMOKING EFFECTS, EDUCATION [id number]/10/2018 HOW MANY CIGARETTES A DAY DO YOU SMOKE?11-20 HOW SOON AFTER YOU WAKE UP DO YOU SMOKE YOUR FIRST CIGARETTE?6-30 MIN HOW OFTEN DO YOU SMOKE CIGARETTES?EVERY DAY PATIENT COUNSELED ON THE DANGERS OF TOBACCO USE AND URGED TO QUIT:09/10/2018 PAIN CLINIC PFS, CLERGY, PUBLIC HEALTH REFERRALS PFS REFERRAL NEEDED?NO CLERGY REFERRAL NEEDED?NO PUBLIC HEALTH REFERRAL NEEDED?NO WAS THE PROVIDER NOTIFIED OF ANY PERTINENT INFO?NO HAS THE PATIENT BEEN EDUCATED REGARDING HIS/HER PLAN OF CARE?YES HAS THE PATIENT BEEN EDUCATED REGARDING PAIN, THE RISK FOR PAIN, THE IMPORTANCE OF EFFECTIVE PAIN MANAGEMENT, AND THE PAIN ASSESSMENT PROCESS?YES LATEX QUESTIONNAIRE LATEX ALLERGY : HAVE YOU EVER DEVELOPED ANY TYPE OF REACTION AFTER HANDLING LATEX PRODUCTS SUCH RUBBER GLOVES, CONDOMS, DIAPHRAGMS, BALLOONS, SOCKS, OR UNDERWEAR?NO LATEX ALLERGY : HAVE YOU EVER DEVELOPED ANY TYPE OF REACTION DURING OR AFTER DENTAL APPOINTMENT, VAGINAL/RECTAL EXAMINATION, SURGICAL PROCEDURE, OR ANY OTHER EXPOSURE?NO LATEX RISK : HAVE YOU EVER HAD ANY DIFFICULTY BREATHING OR HIVES AFTER EATING OR HANDLING ANY FRUITS, OR VEGETABLES; SUCH KIWI, BANANAS, STONE FRUITS, OR CHESTNUTSNO LATEX RISK : DO YOU HAVE A PREVIOUS PERSONAL HISTORY OF MORE THAN NINE SURGERIES, SPINA BIFIDA, OR REPEATED CATHERTIZATIONS? NO LATEX RISK : ARE YOU FREQUENTLY EXPOSED TO LATEX PRODUCTS IN YOUR OCCUPATION?NO DATE ASKED : 09/10/2018 CAFFEINE CAFFEINE USE?NO ADVANCE DIRECTIVE ADVANCE DIRECTIVE DISCUSSED WITH PATIENT:YES PT HAS NO ADVANCED DIRECTIVES, DECLINES INFORMATION. 11/18/18 DIET: REGULAR. SCIENTOLOGY [id number] MORMON LANGUAGE LANGUAGES SPOKEN:SINGAPOREAN RECREATIONAL DRUG USE DRUG USE?NO OCCUPATION: [employer]. 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 LEARNING BARRIERS / SPECIAL NEEDS BARRIERS TO LEARNING?NO HEARING IMPAIRED?NO VISION IMPAIRED?NO COGNITIVELY IMPAIRED?NO READINESS TO LEARN?YES LEARNING PREFERENCES?NO LEARNING CAPABILITIES PRESENT?YES EMOTIONAL BARRIERS?NO SPECIAL DEVICES?NO DIRECTOR OF CORPORATE RESPONSIBILITY NEEDED?NO REVIEWED WITH PT 03/19/18 1510 BVREVIEWED WITH PT 04/08/18 1411 BVREVIEWED WITH PATIENT 04/30/18 1517 JSREVIEWED WITH PT 11/18/18 1420 BV. HOSPITALIZATION/MAJOR DIAGNOSTIC PROCEDURE [facility] INPATIENT ADMISSION 09/2017 REVIEW OF SYSTEMS REVIEWED BY: PROVIDER: NAOMI VALDEZ . CONSTITUTIONAL: ANY CHANGE IN YOUR MEDICAL CONDITION? NO . CHILLS NO . FEVER NO . INFECTION: DO YOU HAVE NEW INFECTIONS? NO . DO YOU HAVE HISTORY OF MRSA? NO . MUSCULOSKELETAL: ANY NEW PATTERNS OF PAIN OR NUMBNESS? YES, LEFT SHOULDER HAS INCREASED PAIN AND DECREASED RANGE OF MOTION OVER THE PAST COUPLE MONTHS. STATES HE HAS A [employer] BUSINESS AND HAS BEEN VERY BUSY LATELY. . GASTROENTEROLOGY: ANY NEW CHANGE IN BOWEL CONTROL? NO . GENITOURINARY: ANY NEW CHANGE IN BLADDER CONTROL? NO . IS THERE A CHANCE YOU COULD BE ? NO . HEMATOLOGY/LYMPH: DO YOU TAKE ANY BLOOD THINNERS? (FOR EXAMPLE- COUMADIN, PLAVIX, AGGRENOX, PLATEL, PRADAXA, OR XARELTO) NO . WHEN WAS YOUR LAST DOSE? DATE: TIME: . NEUROLOGY: HAVE YOU FALLEN IN THE PAST 12 MONTHS? NO . ANY NEW EXTREMITY NUMBNESS OR WEAKNESS? NO . CARDIOLOGY: DO YOU HAVE A PACEMAKER OR DEFIBRILLATOR? NO . RESPIRATORY: HAVE YOU BEEN SICK IN THE PAST WEEK? NO . FEVER NO . FLU LIKE SYMPTOMS? NO . COUGH NO . INTEGUMENTARY: DO YOU HAVE ANY RASHES OR OPEN SORES? NO . ALLERGIC/IMMUNO: ARE YOU ALLERGIC TO IV DYE? NO . ANY NEW ALLERGIES? NO . PSYCHIATRIC: DO YOU HAVE THOUGHTS OF HURTING YOURSELF OR SOMEONE ELSE? NO . ARE YOU ABUSED, NEGLECTED, OR IN AN UNSAFE ENVIRONMENT? NO . ENDOCRINOLOGY: ARE YOU DIABETIC? NO . OTHER: DO YOU NEED ANY PRESCRIPTIONS? NO . IF YES, PLEASE LIST: ____ . ANY NEW PROBLEMS WITH YOUR MEDICATIONS? NO . WHEN DID YOU LAST EAT? ____ . WHEN DID YOU LAST DRINK? ____ . WHAT DID YOU LAST DRINK? ____ . NAME OF PERSON DRIVING YOU HOME? ____ . DO YOU HAVE ANY OTHER QUESTIONS OR CONCERNS NO . VITAL SIGNS WT 193.6 LBS, HT 5'7", BMI 30.32 INDEX, BP 134/67 MM HG, HR 116 /MIN, RR 18 /MIN, TEMP 98.4 F, OXYGEN SAT % 96%, NA INITIALS AW 1415, REVIEWED BY: BV. EXAMINATION GENERAL EXAMINATION: GENERAL APPEARANCE:AWAKE,ALERT ,PLEAASANT . PSYCHAFFECT NORMAL . LUNGS:LUNG WISDOM ARE CLEAR TO AUSCULTATION BILATERALLY. GOOD MOVEMENT OF AIR . HEART:S1, S2 IN A REGULAR RATE AND RHYTHM. NO SIGNIFICANT MURMURS, RUBS OR GALLOPS NOTED . ASSESSMENTS LEFT ANTERIOR SHOULDER PAIN - M25.512 (PRIMARY) LOW BACK PAIN - M54.5 TREATMENT LEFT ANTERIOR SHOULDER PAIN CONTINUE HYDROCODONE-ACETAMINOPHEN TABLET, 10-325 MG, 1 TABLET NEEDED, ORALLY, Q8H PRN MDD3, NOTES: FILL ON 07/19/18 START MELOXICAM TABLET, 7.5 MG, 1 TABLET, ORALLY, BID, 30 DAY(S), 60 TABLET, REFILLS 5 NOTES: ISTOP REGISTRY REVIEWED AND DEMONSTRATES COMPLLIANCE. (REF # [id number] ) BRINGS IN MEDICATIONS WHICH IS APPROPRIATE FOR WHAT WAS DISPENSED. RECENT URINE TOXICOLOGY REVIEWED. NO UNAUTHORIZED MEDICATIONS. NO ILLICIT SUBSTANCES AND PRESCRIBED MEDICATIONS WERE PRESENT. URINE TOX TODAY, RISKS AND BENEFITS OF NARCOTIC/OPIOD MEDICATIONS WERE REVIEWED WITH PATIENT - THIS INCLUDES BUT IS NOT LIMITED TO RISK OF DEPENDANCE/DEVELOPMENT OF ADDICTION, MOOD DISTURBANCE AND DEPRESSION, OSTEOPOROSIS, HORMONAL AND LABIDAL CHANGES, RESPIRATORY DEPRESSION AND . PATIENT IS ADVISED NOT TO DRIVE OR DRINK ALCOHOL WHILE ON THESE MEDICATIONS. PREVENTIVE MEDICINE PAIN CLINIC TEACHING: MEDICATIONS PT GIVEN WRITTEN AND VERBAL EDUCATION ON STARTING MELOXICAM. PT VERBALIZES UNDERSTANDING OF ALL EDUCATION. BI SONG 11/18/2018 3:00:21 PM > . PROCEDURE CODES FA211 ESTABILISHED PATIENT [facility] CHARGE DISPOSITION & COMMUNICATION FOLLOW UP 3 MONTHS (REASON: MED MGMNT) ELECTRONICALLY SIGNED BY COURTNEY AMADO ON 11/29/2018 AT 09:48 AM EDT DISCLAIMER : THIS IS A VISIT SUMMARY EXTRACTED FROM THE [employer] CHART. IT IS NOT A COPY OF THE [employer] PROGRESS NOTE. MTDD
== END ==
LOC: M PAIN 14:00
PROVIDERS: ATTEND Nurse Practitioner Family
DX: M25.512 Pain in left shoulder (principal); M54.5 Low back pain; G89.29 Other chronic pain; Z86.59 Personal history of other mental and behavioral disorders; M19.90 Unspecified osteoarthritis, unspecified site; I10 Essential (primary) hypertension; F17.210 Nicotine dependence, cigarettes, uncomplicated; Z79.899 Other long term (current) drug therapy

== ENCOUNTER → 2019-02-18 | Outpatient (CLI) | payer OTHER, MEDICAID ==
--- NOTE | 2019-03-11 00:40 | ECWPNPC ---
PATIENT NAME: ELVA DUTTON : 1960 GENDER: MALE VISIT DATE: 02/18/2019 DISCHARGE DATE: 02/18/19 1101 VISIT LOCKED DATE TIME: PHYSICIAN: NAOMI MORRIS RESOURCE: NAOMI MORRIS REASON FOR APPOINTMENT 1. 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 PAIN THE PATIENT DESCRIBES THE PAIN... FALL RISK SCREENING: SCREENING :NO FALLS REPORTED IN THE LAST YEAR CURRENT MEDICATIONS TAKING REXULTI 0.25 MG TABLET 1 TABLET ORALLY ONCE A DAY, NOTES: UNSURE OF DOSE TAKING ALPRAZOLAM 1 MG TABLET 1 TABLET ORALLY TWICE A DAY, NOTES: UNSURE OF DOSE TAKING LITHIUM CARBONATE - POWDER ONCE A DAY, NOTES: CURRENTLY OUT OF TAKING VIIBRYD 10 MG TABLET 1 TAB ORALLY DAILY TAKING MELOXICAM 7.5 MG TABLET 1 TABLET ORALLY BID TAKING HYDROCODONE-ACETAMINOPHEN 10-325 MG TABLET 1 TABLET NEEDED ORALLY Q8H PRN MDD3 NOT-TAKING KETOROLAC TROMETHAMINE 10 MG TABLET 1 TABLET WITH FOOD OR MILK NEEDED ORALLY EVERY 6 HRS NOT-TAKING ZOFRAN 4 MG TABLET 1 TAB ORALLY TWICE A DAY NEEDED FOR NAUSEA NOT-TAKING TRAZODONE HCL 50 MG TABLET ORALLY NOT-TAKING PAXIL 20 MG TABLET 1 TABLET IN THE MORNING ORALLY ONCE A DAY DISCONTINUED HYDROCODONE-ACETAMINOPHEN 10-325 MG TABLET 1 TABLET NEEDED ORALLY EVERY 8 HRS PRN MDD3 MEDICATION LIST REVIEWED AND RECONCILED WITH THE PATIENT PAST MEDICAL HISTORY DEPRESSION/ANXIETY - CELEXA AND ZOLOFT IN THE PAST, CURRENTLY ON TRAZODONE ONLY QHS OSTEOARTHRITIS - LUMBAGO HYPERTENSION ALLERGIES N.K.D.A. SURGICAL HISTORY CYST REMOVAL RIGHT THUMB REPAIR OF LACERATION FAMILY HISTORY FATHER: 78 YRS, COLON CANCER, [place] IN LATE 50'S, DIAGNOSED WITH UNSPECIFIED HEART DISEASE MOTHER: 74 YRS, KIDNEY DISEASE SOCIAL HISTORY GENERAL: TOBACCO USE ARE YOU A:CURRENT SMOKER ARE YOU INTERESTED IN QUITTING?NOT READY TO QUIT COUNSELED THE PATIENT ON SMOKING EFFECTS, EDUCATION [id number]/29/2019 HOW MANY CIGARETTES A DAY DO YOU SMOKE?11-20 HOW SOON AFTER YOU WAKE UP DO YOU SMOKE YOUR FIRST CIGARETTE?6-30 MIN HOW OFTEN DO YOU SMOKE CIGARETTES?EVERY DAY PATIENT COUNSELED ON THE DANGERS OF TOBACCO USE AND URGED TO QUIT:09/10/2018 PAIN CLINIC PFS, CLERGY, PUBLIC HEALTH REFERRALS PFS REFERRAL NEEDED?NO CLERGY REFERRAL NEEDED?NO PUBLIC HEALTH REFERRAL NEEDED?NO WAS THE PROVIDER NOTIFIED OF ANY PERTINENT INFO?NO HAS THE PATIENT BEEN EDUCATED REGARDING HIS/HER PLAN OF CARE?YES HAS THE PATIENT BEEN EDUCATED REGARDING PAIN, THE RISK FOR PAIN, THE IMPORTANCE OF EFFECTIVE PAIN MANAGEMENT, AND THE PAIN ASSESSMENT PROCESS?YES LATEX QUESTIONNAIRE LATEX ALLERGY : HAVE YOU EVER DEVELOPED ANY TYPE OF REACTION AFTER HANDLING LATEX PRODUCTS SUCH RUBBER GLOVES, CONDOMS, DIAPHRAGMS, BALLOONS, SOCKS, OR UNDERWEAR?NO LATEX ALLERGY : HAVE YOU EVER DEVELOPED ANY TYPE OF REACTION DURING OR AFTER DENTAL APPOINTMENT, VAGINAL/RECTAL EXAMINATION, SURGICAL PROCEDURE, OR ANY OTHER EXPOSURE?NO DATE ASKED : 09/10/2018 LATEX RISK : HAVE YOU EVER HAD ANY DIFFICULTY BREATHING OR HIVES AFTER EATING OR HANDLING ANY FRUITS, OR VEGETABLES; SUCH KIWI, BANANAS, STONE FRUITS, OR CHESTNUTSNO LATEX RISK : DO YOU HAVE A PREVIOUS PERSONAL HISTORY OF MORE THAN NINE SURGERIES, SPINA BIFIDA, OR REPEATED CATHERIZATIONS? NO LATEX RISK : ARE YOU FREQUENTLY EXPOSED TO LATEX PRODUCTS IN YOUR OCCUPATION?NO CAFFEINE CAFFEINE USE?NO ADVANCE DIRECTIVE ADVANCE DIRECTIVE DISCUSSED WITH PATIENT:YES PT HAS NO ADVANCED DIRECTIVES, DECLINES INFORMATION. DIET: REGULAR. FAITH [id number] SPIRITISM LANGUAGE LANGUAGES SPOKEN:GREEK RECREATIONAL DRUG USE DRUG USE?NO OCCUPATION: [employer]. 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 LEARNING BARRIERS / SPECIAL NEEDS BARRIERS TO LEARNING?NO HEARING IMPAIRED?NO VISION IMPAIRED?NO COGNITIVELY IMPAIRED?NO READINESS TO LEARN?YES LEARNING PREFERENCES?NO LEARNING CAPABILITIES PRESENT?YES EMOTIONAL BARRIERS?NO SPECIAL DEVICES?NO DEPOSIT REFUND CLERK NEEDED?NO REVIEWED WITH PT 03/19/18 1510 BVREVIEWED WITH PT 04/08/18 1411 BVREVIEWED WITH PATIENT 04/30/18 1517 JSREVIEWED WITH PT 11/18/18 1420 BV. HOSPITALIZATION/MAJOR DIAGNOSTIC PROCEDURE [facility] INPATIENT ADMISSION 09/2017 REVIEW OF SYSTEMS REVIEWED BY: PROVIDER: NAOMI VALDEZ . CONSTITUTIONAL: ANY CHANGE IN YOUR MEDICAL CONDITION? NO . CHILLS NO . FEVER NO . INFECTION: DO YOU HAVE NEW INFECTIONS? NO . DO YOU HAVE HISTORY OF MRSA? NO . MUSCULOSKELETAL: ANY NEW PATTERNS OF PAIN OR NUMBNESS? NO . GASTROENTEROLOGY: ANY NEW CHANGE IN BOWEL CONTROL? NO . GENITOURINARY: ANY NEW CHANGE IN BLADDER CONTROL? NO . IS THERE A CHANCE YOU COULD BE ? NO . HEMATOLOGY/LYMPH: DO YOU TAKE ANY BLOOD THINNERS? (FOR EXAMPLE- COUMADIN, PLAVIX, AGGRENOX, PLATEL, PRADAXA, OR XARELTO) NO . WHEN WAS YOUR LAST DOSE? DATE: TIME: . NEUROLOGY: HAVE YOU FALLEN IN THE PAST 12 MONTHS? NO . ANY NEW EXTREMITY NUMBNESS OR WEAKNESS? NO . CARDIOLOGY: DO YOU HAVE A PACEMAKER OR DEFIBRILLATOR? NO . RESPIRATORY: HAVE YOU BEEN SICK IN THE PAST WEEK? NO . FEVER NO . FLU LIKE SYMPTOMS? NO . COUGH NO . INTEGUMENTARY: DO YOU HAVE ANY RASHES OR OPEN SORES? NO . ALLERGIC/IMMUNO: ARE YOU ALLERGIC TO IV DYE? NO . ANY NEW ALLERGIES? NO . PSYCHIATRIC: DO YOU HAVE THOUGHTS OF HURTING YOURSELF OR SOMEONE ELSE? NO . ARE YOU ABUSED, NEGLECTED, OR IN AN UNSAFE ENVIRONMENT? NO . ENDOCRINOLOGY: ARE YOU DIABETIC? NO . OTHER: DO YOU NEED ANY PRESCRIPTIONS? NO . IF YES, PLEASE LIST: ____ . ANY NEW PROBLEMS WITH YOUR MEDICATIONS? NO . WHEN DID YOU LAST EAT? ____ . WHEN DID YOU LAST DRINK? ____ . WHAT DID YOU LAST DRINK? ____ . NAME OF PERSON DRIVING YOU HOME? ____ . DO YOU HAVE ANY OTHER QUESTIONS OR CONCERNS NO . VITAL SIGNS WT 193.6 LBS, HT 5'7", BMI 30.32 INDEX, BP 179/99 MM HG, HR 81 /MIN, RR 18 /MIN, TEMP 97.5 F, OXYGEN SAT % 96%, NA INITIALS AW 1010, REVIEWED BY: EM. EXAMINATION GENERAL EXAMINATION: GENERALAWAKE,ALERT ,PLEAASANT . PSYCHAFFECT NORMAL . LUNGS:LUNG WISDOM ARE CLEAR TO AUSCULTATION BILATERALLY. GOOD MOVEMENT OF AIR . HEART:S1, S2 IN A REGULAR RATE AND RHYTHM. NO SIGNIFICANT MURMURS, RUBS OR GALLOPS NOTED . ASSESSMENTS LEFT ANTERIOR SHOULDER PAIN - M25.512 (PRIMARY) LOW BACK PAIN - M54.5 OTHER CHRONIC PAIN - G89.29 TREATMENT LEFT ANTERIOR SHOULDER PAIN STOP MELOXICAM TABLET, 7.5 MG, 1 TABLET, ORALLY, BID REFILL HYDROCODONE-ACETAMINOPHEN TABLET, 10-325 MG, 1 TABLET NEEDED, ORALLY, Q8H PRN MDD3, 30 DAY(S), 90, REFILLS 0 NOTES: ISTOP REGISTRY REVIEWED AND DEMONSTRATES COMPLLIANCE. BRINGS IN MEDICATIONS WHICH IS APPROPRIATE FOR WHAT WAS DISPENSED. RECENT URINE TOXICOLOGY REVIEWED. NO UNAUTHORIZED MEDICATIONS. NO ILLICIT SUBSTANCES AND PRESCRIBED MEDICATIONS WERE PRESENT. , RISKS AND BENEFITS OF NARCOTIC/OPIOD MEDICATIONS WERE REVIEWED WITH PATIENT - THIS INCLUDES BUT IS NOT LIMITED TO RISK OF DEPENDANCE/DEVELOPMENT OF ADDICTION, MOOD DISTURBANCE AND DEPRESSION, OSTEOPOROSIS, HORMONAL AND LABIDAL CHANGES, RESPIRATORY DEPRESSION AND . PATIENT IS ADVISED NOT TO DRIVE OR DRINK ALCOHOL WHILE ON THESE MEDICATIONSPT 2XWK X6 WKS-LBP. PROCEDURE CODES FA211 ESTABILISHED PATIENT [facility] CHARGE DISPOSITION & COMMUNICATION FOLLOW UP 2 MONTHS (REASON: PT 2XWK X6 WKS-LBP) ELECTRONICALLY SIGNED BY COURTNEY AMADO ON 03/10/2019 AT 09:09 AM EDT DISCLAIMER : THIS IS A VISIT SUMMARY EXTRACTED FROM THE [employer] CHART. IT IS NOT A COPY OF THE [employer] PROGRESS NOTE. CAROLE
== END ==
LOC: M PAIN 09:30
PROVIDERS: ATTEND Nurse Practitioner Family
DX: M25.512 Pain in left shoulder (principal); M54.5 Low back pain; G89.29 Other chronic pain; Z86.59 Personal history of other mental and behavioral disorders; I10 Essential (primary) hypertension; F17.210 Nicotine dependence, cigarettes, uncomplicated; Z79.899 Other long term (current) drug therapy

== ENCOUNTER → 2019-04-22 | Outpatient (CLI) | payer OTHER, MEDICAID ==
--- NOTE | 2019-05-05 05:13 | ECWPNPC ---
PATIENT NAME: ELVA DUTTON : 1960 GENDER: MALE VISIT DATE: 04/22/2019 DISCHARGE DATE: 04/22/19 1416 VISIT LOCKED DATE TIME: PHYSICIAN: NAOMI MORRIS RESOURCE: NAOMI MORRIS REASON FOR APPOINTMENT 1. 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 PAIN THE PATIENT DESCRIBES THE PAIN... FALL RISK SCREENING: SCREENING :NO FALLS REPORTED IN THE LAST YEAR CURRENT MEDICATIONS TAKING REXULTI 0.25 MG TABLET 1 TABLET ORALLY ONCE A DAY, NOTES: UNSURE OF DOSE TAKING ALPRAZOLAM 1 MG TABLET 1 TABLET ORALLY TWICE A DAY, NOTES: UNSURE OF DOSE TAKING LITHIUM CARBONATE - POWDER ONCE A DAY, NOTES: CURRENTLY OUT OF TAKING VIIBRYD 10 MG TABLET 1 TAB ORALLY DAILY TAKING NORCO 10-325 MG TABLET 1 TABLET NEEDED ORALLY EVERY 6 HRS PRN MDD4 TAKING HYDROCODONE-ACETAMINOPHEN 10-325 MG TABLET 1 TABLET NEEDED ORALLY Q8H PRN MDD3 TAKING ZALEPLON 10 MG CAPSULE 1 CAPSULE AT BEDTIME NEEDED ORALLY ONCE A DAY TAKING ADDERALL 20 MG TABLET 1 TABLET ORALLY TWICE A DAY TAKING CLONAZEPAM 1 MG TABLET 1 TABLET ORALLY ONCE A DAY NOT-TAKING KETOROLAC TROMETHAMINE 10 MG TABLET 1 TABLET WITH FOOD OR MILK NEEDED ORALLY EVERY 6 HRS NOT-TAKING ZOFRAN 4 MG TABLET 1 TAB ORALLY TWICE A DAY NEEDED FOR NAUSEA NOT-TAKING TRAZODONE HCL 50 MG TABLET ORALLY NOT-TAKING PAXIL 20 MG TABLET 1 TABLET IN THE MORNING ORALLY ONCE A DAY DISCONTINUED NORCO 10-325 MG TABLET 1 TABLET NEEDED ORALLY Q8H PRN MDD3, NOTES: DUPLICATE PAST MEDICAL HISTORY DEPRESSION/ANXIETY - CELEXA AND ZOLOFT IN THE PAST, CURRENTLY ON TRAZODONE ONLY QHS OSTEOARTHRITIS - LUMBAGO HYPERTENSION DYSTHYMIC ALCOHOL ABUSE LOW BACK PAIN ALLERGIES N.K.D.A. SURGICAL HISTORY CYST REMOVAL RIGHT THUMB REPAIR OF LACERATION FAMILY HISTORY FATHER: 78 YRS, COLON CANCER, [place] IN LATE 50'S, DIAGNOSED WITH UNSPECIFIED HEART DISEASE MOTHER: 74 YRS, KIDNEY DISEASE SOCIAL HISTORY GENERAL: TOBACCO USE ARE YOU A:CURRENT SMOKER ARE YOU INTERESTED IN QUITTING?THINKING ABOUT QUITTING PREVIOUS QUIT ATTEMPTS?YES, MORE THAN 6 MONTHS AGO. COUNSELED THE PATIENT ON SMOKING CESSATION, EDUCATION [id number] HOW MANY CIGARETTES A DAY DO YOU SMOKE?11-20 HOW SOON AFTER YOU WAKE UP DO YOU SMOKE YOUR FIRST CIGARETTE?6-30 MIN HOW OFTEN DO YOU SMOKE CIGARETTES?EVERY DAY PATIENT COUNSELED ON THE DANGERS OF TOBACCO USE AND URGED TO QUIT:04/22/2019 DIET: REGULAR. 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 LEARNING BARRIERS / SPECIAL NEEDS BARRIERS TO LEARNING?NO HEARING IMPAIRED?NO VISION IMPAIRED?YES :CORRECTIVE LENSES READING GLASSES COGNITIVELY IMPAIRED?NO READINESS TO LEARN?YES LEARNING PREFERENCES?NO LEARNING CAPABILITIES PRESENT?YES EMOTIONAL BARRIERS?NO SPECIAL DEVICES?NO BUSINESS ADMINISTRATOR NEEDED?NO PAIN CLINIC PFS, CLERGY, PUBLIC HEALTH REFERRALS PFS REFERRAL NEEDED?NO CLERGY REFERRAL NEEDED?NO PUBLIC HEALTH REFERRAL NEEDED?NO WAS THE PROVIDER NOTIFIED OF ANY PERTINENT INFO? N/A HAS THE PATIENT BEEN EDUCATED REGARDING HIS/HER PLAN OF CARE?YES HAS THE PATIENT BEEN EDUCATED REGARDING PAIN, THE RISK FOR PAIN, THE IMPORTANCE OF EFFECTIVE PAIN MANAGEMENT, AND THE PAIN ASSESSMENT PROCESS?YES LATEX QUESTIONNAIRE LATEX ALLERGY : HAVE YOU EVER DEVELOPED ANY TYPE OF REACTION AFTER HANDLING LATEX PRODUCTS SUCH RUBBER GLOVES, CONDOMS, DIAPHRAGMS, BALLOONS, SOCKS, OR UNDERWEAR?NO LATEX ALLERGY : HAVE YOU EVER DEVELOPED ANY TYPE OF REACTION AFTER HANDLING LATEX PRODUCTS SUCH RUBBER GLOVES, CONDOMS, DIAPHRAGMS, BALLOONS, SOCKS, OR UNDERWEAR?NO LATEX ALLERGY : HAVE YOU EVER DEVELOPED ANY TYPE OF REACTION DURING OR AFTER DENTAL APPOINTMENT, VAGINAL/RECTAL EXAMINATION, SURGICAL PROCEDURE, OR ANY OTHER EXPOSURE?NO LATEX ALLERGY : HAVE YOU EVER DEVELOPED ANY TYPE OF REACTION DURING OR AFTER DENTAL APPOINTMENT, VAGINAL/RECTAL EXAMINATION, SURGICAL PROCEDURE, OR ANY OTHER EXPOSURE?NO DATE ASKED : 09/10/2018 DATE ASKED : 09/10/2018 LATEX RISK : HAVE YOU EVER HAD ANY DIFFICULTY BREATHING OR HIVES AFTER EATING OR HANDLING ANY FRUITS, OR VEGETABLES; SUCH KIWI, BANANAS, STONE FRUITS, OR CHESTNUTSNO LATEX RISK : HAVE YOU EVER HAD ANY DIFFICULTY BREATHING OR HIVES AFTER EATING OR HANDLING ANY FRUITS, OR VEGETABLES; SUCH KIWI, BANANAS, STONE FRUITS, OR CHESTNUTSNO LATEX RISK : DO YOU HAVE A PREVIOUS PERSONAL HISTORY OF MORE THAN NINE SURGERIES, SPINA BIFIDA, OR REPEATED CATHERIZATIONS? NO LATEX RISK : DO YOU HAVE A PREVIOUS PERSONAL HISTORY OF MORE THAN NINE SURGERIES, SPINA BIFIDA, OR REPEATED CATHERIZATIONS? NO LATEX RISK : ARE YOU FREQUENTLY EXPOSED TO LATEX PRODUCTS IN YOUR OCCUPATION?NO LATEX RISK : ARE YOU FREQUENTLY EXPOSED TO LATEX PRODUCTS IN YOUR OCCUPATION?NO CAFFEINE CAFFEINE USE?NO CAFFEINE USE?NO ADVANCE DIRECTIVE ADVANCE DIRECTIVE DISCUSSED WITH PATIENT:YES 04/22/19 PT DOESN'T HAVE ANY ADVANCED DIRECTIVES, AND HE DECLINES INFORMATION ON HCP AT THIS TIME. AD MU-ISM [id number] [employer]URCH [id number] [employer] OCCUPATION: [employer]. REVIEWED WITH PT 03/19/18 1510 BVREVIEWED WITH PT 04/08/18 1411 BVREVIEWED WITH PATIENT 04/30/18 1517 JSREVIEWED WITH PT 11/18/18 1420 BV. HOSPITALIZATION/MAJOR DIAGNOSTIC PROCEDURE [facility] INPATIENT ADMISSION 09/2017 REVIEW OF SYSTEMS REVIEWED BY: PROVIDER: NAOMI VALDEZ . CONSTITUTIONAL: ANY CHANGE IN YOUR MEDICAL CONDITION? NO . CHILLS NO . FEVER NO . INFECTION: DO YOU HAVE NEW INFECTIONS? NO . DO YOU HAVE HISTORY OF MRSA? NO . MUSCULOSKELETAL: ANY NEW PATTERNS OF PAIN OR NUMBNESS? NO . GASTROENTEROLOGY: ANY NEW CHANGE IN BOWEL CONTROL? NO . GENITOURINARY: ANY NEW CHANGE IN BLADDER CONTROL? NO . IS THERE A CHANCE YOU COULD BE ? NO . HEMATOLOGY/LYMPH: DO YOU TAKE ANY BLOOD THINNERS? (FOR EXAMPLE- COUMADIN, PLAVIX, AGGRENOX, PLATEL, PRADAXA, OR XARELTO) NO . WHEN WAS YOUR LAST DOSE? DATE: TIME: . NEUROLOGY: HAVE YOU FALLEN IN THE PAST 12 MONTHS? NO . ANY NEW EXTREMITY NUMBNESS OR WEAKNESS? NO . CARDIOLOGY: DO YOU HAVE A PACEMAKER OR DEFIBRILLATOR? NO . RESPIRATORY: HAVE YOU BEEN SICK IN THE PAST WEEK? NO . FEVER NO . FLU LIKE SYMPTOMS? NO . COUGH NO . INTEGUMENTARY: DO YOU HAVE ANY RASHES OR OPEN SORES? NO . ALLERGIC/IMMUNO: ARE YOU ALLERGIC TO IV DYE? NO . ANY NEW ALLERGIES? NO . PSYCHIATRIC: DO YOU HAVE THOUGHTS OF HURTING YOURSELF OR SOMEONE ELSE? NO . ARE YOU ABUSED, NEGLECTED, OR IN AN UNSAFE ENVIRONMENT? NO . ENDOCRINOLOGY: ARE YOU DIABETIC? NO . OTHER: DO YOU NEED ANY PRESCRIPTIONS? NO . IF YES, PLEASE LIST: ____ . ANY NEW PROBLEMS WITH YOUR MEDICATIONS? NO . WHEN DID YOU LAST EAT? ____ . WHEN DID YOU LAST DRINK? ____ . WHAT DID YOU LAST DRINK? ____ . NAME OF PERSON DRIVING YOU HOME? ____ . DO YOU HAVE ANY OTHER QUESTIONS OR CONCERNS NO . VITAL SIGNS WT 195.8 LBS, HT 5'7", BMI 30.66 INDEX, BP 187/94 MM HG, HR 86 /MIN, RR 18 /MIN, TEMP 97.9 F, OXYGEN SAT % 98%, SAFE IN ENV? (Y/N) Y, NA INITIALS AW 1313, REVIEWED BY: RICARDO. EXAMINATION GENERAL EXAMINATION: GENERALAWAKE,ALERT ,PLEAASANT . PSYCHAFFECT NORMAL . LUNGS:LUNG WISDOM ARE CLEAR TO AUSCULTATION BILATERALLY. GOOD MOVEMENT OF AIR . HEART:S1, S2 IN A REGULAR RATE AND RHYTHM. NO SIGNIFICANT MURMURS, RUBS OR GALLOPS NOTED . ASSESSMENTS LEFT ANTERIOR SHOULDER PAIN - M25.512 (PRIMARY) TREATMENT LEFT ANTERIOR SHOULDER PAIN REFILL NORCO TABLET, 10-325 MG, 1 TABLET NEEDED, ORALLY, EVERY 6 HRS PRN MDD4, 30 DAYS, 120, REFILLS 0 NOTES: ISTOP REGISTRY REVIEWED AND DEMONSTRATES COMPLLIANCE. BRINGS IN MEDICATIONS WHICH IS APPROPRIATE FOR WHAT WAS DISPENSED. RECENT URINE TOXICOLOGY REVIEWED. NO UNAUTHORIZED MEDICATIONS. NO ILLICIT SUBSTANCES AND PRESCRIBED MEDICATIONS WERE PRESENT. , RISKS OF NARCOTIC/OPIOD MEDICATIONS INCLUDES BUT IS NOT LIMITED TO RISK OF DEPENDANCE/DEVELOPMENT OF ADDICTION, MOOD DISTURBANCE AND DEPRESSION, OSTEOPOROSIS, HORMONAL AND LABIDAL CHANGES, RESPIRATORY DEPRESSION AND . PATIENT IS ADVISED NOT TO DRIVE OR DRINK ALCOHOL WHILE ON THESE MEDICATIONS. PROCEDURE CODES FA211 ESTABILISHED PATIENT [facility] CHARGE DISPOSITION & COMMUNICATION FOLLOW UP 2 MONTHS ELECTRONICALLY SIGNED BY COURTNEY AMADO ON 05/04/2019 AT 03:37 PM EST DISCLAIMER : THIS IS A VISIT SUMMARY EXTRACTED FROM THE [employer] CHART. IT IS NOT A COPY OF THE [employer] PROGRESS NOTE. CAROLE
== END ==
LOC: M PAIN 13:00
PROVIDERS: ATTEND Nurse Practitioner Family
DX: M25.512 Pain in left shoulder (principal); M54.5 Low back pain; G89.29 Other chronic pain; I10 Essential (primary) hypertension; F17.210 Nicotine dependence, cigarettes, uncomplicated; Z86.59 Personal history of other mental and behavioral disorders; Z79.899 Other long term (current) drug therapy

== ENCOUNTER → 2019-07-12 | Outpatient (CLI) | payer OTHER, MEDICAID ==
[~2019-07-12] MED LIST changes: +ALPR1TAB3 PO; +FLOM0.4C39 PO; +HYDR-4517 PO; -MECL-68 PO; +MECL1TAB31 PO; +ONDA-83 PO; +ZOFR4TAB16 PO
--- NOTE | 2019-07-29 03:14 | ECWPNPC ---
PATIENT NAME: ELVA DUTTON : 1960 GENDER: MALE VISIT DATE: 07/12/2019 DISCHARGE DATE: 07/12/19 1410 VISIT LOCKED DATE TIME: PHYSICIAN: NAOMI MORRIS RESOURCE: NAOMI MORRIS REASON FOR APPOINTMENT 1. 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 PAIN THE PATIENT DESCRIBES THE PAIN... FALL RISK SCREENING: SCREENING :NO FALLS REPORTED IN THE LAST YEAR CURRENT MEDICATIONS TAKING REXULTI 0.25 MG TABLET 1 TABLET ORALLY ONCE A DAY, NOTES: UNSURE OF DOSE TAKING LITHIUM CARBONATE - POWDER ONCE A DAY TAKING VIIBRYD 10 MG TABLET 1 TAB ORALLY DAILY TAKING ZALEPLON 10 MG CAPSULE 1 CAPSULE AT BEDTIME NEEDED ORALLY ONCE A DAY TAKING NORCO 10-325 MG TABLET 1 TABLET NEEDED ORALLY EVERY 6 HRS PRN MDD4 TAKING DEXTROAMPHETAMINE SULFATE 20 MG TABLET 1 TABLET ORALLY THREE TIMES A DAY, NOTES: UNSURE OF DOSE/FREQUENCY NOT-TAKING ALPRAZOLAM 1 MG TABLET 1 TABLET ORALLY TWICE A DAY, NOTES: UNSURE OF DOSE NOT-TAKING HYDROCODONE-ACETAMINOPHEN 10-325 MG TABLET 1 TABLET NEEDED ORALLY Q8H PRN MDD3, NOTES: DUPLICATE NOT-TAKING ADDERALL 20 MG TABLET 1 TABLET ORALLY TWICE A DAY NOT-TAKING CLONAZEPAM 1 MG TABLET 1 TABLET ORALLY ONCE A DAY NOT-TAKING KETOROLAC TROMETHAMINE 10 MG TABLET 1 TABLET WITH FOOD OR MILK NEEDED ORALLY EVERY 6 HRS NOT-TAKING ZOFRAN 4 MG TABLET 1 TAB ORALLY TWICE A DAY NEEDED FOR NAUSEA NOT-TAKING TRAZODONE HCL 50 MG TABLET ORALLY NOT-TAKING PAXIL 20 MG TABLET 1 TABLET IN THE MORNING ORALLY ONCE A DAY MEDICATION LIST REVIEWED AND RECONCILED WITH THE PATIENT PAST MEDICAL HISTORY DEPRESSION/ANXIETY - CELEXA AND ZOLOFT IN THE PAST, CURRENTLY ON TRAZODONE ONLY QHS OSTEOARTHRITIS - LUMBAGO HYPERTENSION DYSTHYMIC ALCOHOL ABUSE LOW BACK PAIN ALLERGIES N.K.D.A. SURGICAL HISTORY CYST REMOVAL RIGHT THUMB REPAIR OF LACERATION FAMILY HISTORY FATHER: 78 YRS, COLON CANCER, [place] IN LATE 50'S, DIAGNOSED WITH UNSPECIFIED HEART DISEASE MOTHER: 74 YRS, KIDNEY DISEASE SOCIAL HISTORY GENERAL: TOBACCO USE ARE YOU A:CURRENT SMOKER ARE YOU INTERESTED IN QUITTING?THINKING ABOUT QUITTING TRYING TO CUT BACK. PREVIOUS QUIT ATTEMPTS?YES, MORE THAN 6 MONTHS AGO. COUNSELED THE PATIENT ON SMOKING CESSATION, EDUCATION [id number]/20/2020 HOW MANY CIGARETTES A DAY DO YOU SMOKE?11-20 HOW SOON AFTER YOU WAKE UP DO YOU SMOKE YOUR FIRST CIGARETTE?6-30 MIN HOW OFTEN DO YOU SMOKE CIGARETTES?EVERY DAY PATIENT COUNSELED ON THE DANGERS OF TOBACCO USE AND URGED TO QUIT:07/12/2019 DIET: REGULAR. 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 N/A HAS THE PATIENT BEEN EDUCATED REGARDING HIS/HER PLAN OF CARE?YES HAS THE PATIENT BEEN EDUCATED REGARDING PAIN, THE RISK FOR PAIN, THE IMPORTANCE OF EFFECTIVE PAIN MANAGEMENT, AND THE PAIN ASSESSMENT PROCESS?YES LATEX QUESTIONNAIRE LATEX ALLERGY : HAVE YOU EVER DEVELOPED ANY TYPE OF REACTION AFTER HANDLING LATEX PRODUCTS SUCH RUBBER GLOVES, CONDOMS, DIAPHRAGMS, BALLOONS, SOCKS, OR UNDERWEAR?NO LATEX ALLERGY : HAVE YOU EVER DEVELOPED ANY TYPE OF REACTION DURING OR AFTER DENTAL APPOINTMENT, VAGINAL/RECTAL EXAMINATION, SURGICAL PROCEDURE, OR ANY OTHER EXPOSURE?NO LATEX RISK : HAVE YOU EVER HAD ANY DIFFICULTY BREATHING OR HIVES AFTER EATING OR HANDLING ANY FRUITS, OR VEGETABLES; SUCH KIWI, BANANAS, STONE FRUITS, OR CHESTNUTSNO LATEX RISK : DO YOU HAVE A PREVIOUS PERSONAL HISTORY OF MORE THAN NINE SURGERIES, SPINA BIFIDA, OR REPEATED CATHERIZATIONS? NO LATEX RISK : ARE YOU FREQUENTLY EXPOSED TO LATEX PRODUCTS IN YOUR OCCUPATION?NO DATE ASKED : 09/10/2018 CAFFEINE CAFFEINE USE?NO ADVANCE DIRECTIVE ADVANCE DIRECTIVE DISCUSSED WITH PATIENT:YES HCP - [facility] (SISTER) & WILBUR MARQUEZ (SISTER) TENRIISM [id number] PENTECOSTALISM OCCUPATION: [employer]. REVIEWED WITH PT 03/19/18 1510 BVREVIEWED WITH PT 04/08/18 1411 BVREVIEWED WITH PATIENT 04/30/18 1517 JSREVIEWED WITH PT 11/18/18 1420 BVREVIEWED WITH PATIENT 07/12/2019 1331 JS. HOSPITALIZATION/MAJOR DIAGNOSTIC PROCEDURE [facility] INPATIENT ADMISSION 09/2017 REVIEW OF SYSTEMS REVIEWED BY: PROVIDER: NAOMI VALDEZ . CONSTITUTIONAL: ANY CHANGE IN YOUR MEDICAL CONDITION? NO . CHILLS NO . FEVER NO . INFECTION: DO YOU HAVE NEW INFECTIONS? NO . DO YOU HAVE HISTORY OF MRSA? NO . MUSCULOSKELETAL: ANY NEW PATTERNS OF PAIN OR NUMBNESS? NO . GASTROENTEROLOGY: ANY NEW CHANGE IN BOWEL CONTROL? NO . GENITOURINARY: ANY NEW CHANGE IN BLADDER CONTROL? NO . IS THERE A CHANCE YOU COULD BE ? NO . HEMATOLOGY/LYMPH: DO YOU TAKE ANY BLOOD THINNERS? (FOR EXAMPLE- COUMADIN, PLAVIX, AGGRENOX, PLATEL, PRADAXA, OR XARELTO) NO . WHEN WAS YOUR LAST DOSE? DATE: TIME: . NEUROLOGY: HAVE YOU FALLEN IN THE PAST 12 MONTHS? YES, STATES HE FELL DOWN THE STAIRS RECENTLY - NO MAJOR INJURIES, NO ED VISIT . ANY NEW EXTREMITY NUMBNESS OR WEAKNESS? NO . CARDIOLOGY: DO YOU HAVE A PACEMAKER OR DEFIBRILLATOR? NO . RESPIRATORY: HAVE YOU BEEN SICK IN THE PAST WEEK? NO . FEVER NO . FLU LIKE SYMPTOMS? NO . COUGH NO . INTEGUMENTARY: DO YOU HAVE ANY RASHES OR OPEN SORES? NO . ALLERGIC/IMMUNO: ARE YOU ALLERGIC TO IV DYE? NO . ANY NEW ALLERGIES? NO . PSYCHIATRIC: DO YOU HAVE THOUGHTS OF HURTING YOURSELF OR SOMEONE ELSE? NO . ARE YOU ABUSED, NEGLECTED, OR IN AN UNSAFE ENVIRONMENT? NO . ENDOCRINOLOGY: ARE YOU DIABETIC? NO . OTHER: DO YOU NEED ANY PRESCRIPTIONS? YES . IF YES, PLEASE LIST: ____HYDROCODONE . ANY NEW PROBLEMS WITH YOUR MEDICATIONS? NO . WHEN DID YOU LAST EAT? ____ . WHEN DID YOU LAST DRINK? ____ . WHAT DID YOU LAST DRINK? ____ . NAME OF PERSON DRIVING YOU HOME? ____ . DO YOU HAVE ANY OTHER QUESTIONS OR CONCERNS NO . VITAL SIGNS WT 183.6 LBS, HT 5'7", BMI 28.75 INDEX, BP 150/93 MM HG, HR 113 /MIN, RR 18 /MIN, TEMP 98.1 F, OXYGEN SAT % 98%, SAFE IN ENV? (Y/N) YES, REVIEWED BY: ROBERTA. EXAMINATION GENERAL EXAMINATION: GENERALAWAKE,ALERT ,PLEAASANT . PSYCHAFFECT NORMAL . LUNGS:LUNG WISDOM ARE CLEAR TO AUSCULTATION BILATERALLY. GOOD MOVEMENT OF AIR . HEART:S1, S2 IN A REGULAR RATE AND RHYTHM. NO SIGNIFICANT MURMURS, RUBS OR GALLOPS NOTED . ASSESSMENTS LOW BACK PAIN - M54.5 (PRIMARY) TREATMENT LOW BACK PAIN REFILL NORCO TABLET, 10-325 MG, 1 TABLET NEEDED, ORALLY, EVERY 6 HRS PRN MDD4, 30 DAYS, 120, REFILLS 0 NOTES: ISTOP REGISTRY REVIEWED AND DEMONSTRATES COMPLLIANCE. BRINGS IN MEDICATIONS WHICH IS APPROPRIATE FOR WHAT WAS DISPENSED. RECENT URINE TOXICOLOGY REVIEWED. NO UNAUTHORIZED MEDICATIONS. NO ILLICIT SUBSTANCES AND PRESCRIBED MEDICATIONS WERE PRESENT. URINE TOX TODAY, RISKS OF NARCOTIC/OPIOD MEDICATIONS INCLUDES BUT IS NOT LIMITED TO RISK OF DEPENDANCE/DEVELOPMENT OF ADDICTION, MOOD DISTURBANCE AND DEPRESSION, OSTEOPOROSIS, HORMONAL AND LABIDAL CHANGES, RESPIRATORY DEPRESSION AND . PATIENT IS ADVISED NOT TO DRIVE OR DRINK ALCOHOL WHILE ON THESE MEDICATIONS. PROCEDURE CODES [id number] ESTABILISHED PATIENT [facility] FACILITY CHARGE DISPOSITION & COMMUNICATION FOLLOW UP 3 MONTHS (REASON: MED MGMNT) ELECTRONICALLY SIGNED BY COURTNEY AMADO ON 07/28/2019 AT 09:44 AM EST DISCLAIMER : THIS IS A VISIT SUMMARY EXTRACTED FROM THE [employer] CHART. IT IS NOT A COPY OF THE [employer] PROGRESS NOTE. LIDAD
== END ==
LOC: M PAIN 13:00
PROVIDERS: ATTEND Nurse Practitioner Family
DX: M54.5 Low back pain (principal); G89.29 Other chronic pain; Z86.59 Personal history of other mental and behavioral disorders; I10 Essential (primary) hypertension; F17.210 Nicotine dependence, cigarettes, uncomplicated; Z79.899 Other long term (current) drug therapy

== ENCOUNTER 2019-07-14 21:43 | Emergency (ER) | payer OTHER ==
[~2019-07-14] VITALS: Ht 172.7 cm; Wt 77.3 kg
[~2019-07-14 21:43] MED LIST changes: -ALPR1TAB3 PO; -FLOM0.4C39 PO; -HYDR-4517 PO; -ONDA-83 PO; -ZOFR4TAB16 PO
[2019-07-14] MEDS ORDERED: ASPIRIN 81 MG CHEW TABLET PO ONE (22:30)
[2019-07-14] MEDS ORDERED: HYDR-4517 PO (22:32)
[2019-07-14] MEDS ORDERED: LITH300T2 PO (22:32)
[2019-07-14] MEDS ORDERED: ALPR1TAB3 PO (22:32)
[2019-07-14 22:49] LABS: BASO % 0.2 % (0.0-1.0); EOS % 0.2 % (0.0-3.0); HEMATOCRIT 47.8 % (42.0-52.0); HEMOGLOBIN 15.8 g/dl (13.5-17.5); LYMPH # 1.7 10^3/uL (1.5-5.0); LYMPH % 9.6 % (24.0-44.0); MEAN CORPUSCULAR HEMOGLOBIN 31.9 pg (27.0-33.0); MEAN CORPUSCULAR HGB CONC 33.1 g/dl (32.0-36.5); MEAN CORPUSCULAR VOLUME 96.4 fl (80.0-96.0); MONO # 1.8 10^3/uL (0.0-0.8); MONO % 10.1 % (0.0-5.0); NEUTROPHILS # 14.3 10^3/uL (1.5-8.5); NEUTROPHILS % 79.5 % (36.0-66.0); PLATELET COUNT, AUTOMATED 265 10^3/uL (150-450); RED BLOOD COUNT 4.96 10^6/uL (4.30-6.10)
[2019-07-14 23:12] LABS: ALBUMIN 4.2 GM/DL (3.2-5.2); BILIRUBIN,DIRECT 0.2 MG/DL (0.0-0.2); BILIRUBIN,TOTAL 0.8 MG/DL (0.2-1.0); TOTAL PROTEIN 8.5 GM/DL (6.4-8.2)
[2019-07-14 23:13] LABS: BLOOD UREA NITROGEN 19 MG/DL (7-18); CALCIUM LEVEL 9.2 MG/DL (8.8-10.2); CARBON DIOXIDE LEVEL 31 MEQ/L (21-32); CHLORIDE LEVEL 103 MEQ/L (98-107); CK-MB VALUE MASS < 1.0 NG/ML (<3.6); CPK CREATINE PHOSPHOKINASE 71 U/L (39-308); CREATININE FOR GFR 1.83 MG/DL (0.70-1.30); GLOMERULAR FILTRATION RATE 40.4 (>49); GLUCOSE, FASTING 110 MG/DL (70-100); MB/CK RELATIVE INDEX 1.41 (< OR =4); POTASSIUM SERUM 4.1 MEQ/L (3.5-5.1); SODIUM LEVEL 142 MEQ/L (136-145); TROPONIN I < 0.02 NG/ML (< 0.10)
--- NOTE | 2019-07-15 00:20 | REPVR ---
PROCEDURE INFORMATION: Exam: CT Abdomen And Pelvis Without Contrast Exam date and time: 07/14/2019 11:44 PM Age: 59 years old Clinical indication: Abdominal pain; Flank; Left; Additional info: L sided abd pain TECHNIQUE: Imaging protocol: Computed tomography of the abdomen and pelvis without contrast. Radiation optimization: All CT scans at this facility use at least one of these dose optimization techniques: automated exposure control; mA and/or kV adjustment per patient size (includes targeted exams where dose is matched to clinical indication); or iterative reconstruction. COMPARISON: CR Spine. Lumbosacral, complete 03/03/2018 12:07 PM FINDINGS: Lungs: Mild dependent atelectasis at the left base. Liver: Normal. No mass. Gallbladder and bile ducts: Normal. No calcified stones. No ductal dilation. Pancreas: Normal. No ductal dilation. Spleen: Normal. No splenomegaly. Adrenals: Normal. No mass. Kidneys and ureters: Mild left hydroureteronephrosis to the level of a 5 mm calculus in the distal left ureter. Stomach and bowel: Unremarkable. No obstruction. No mucosal thickening. Appendix: No evidence of appendicitis. Intraperitoneal space: Unremarkable. No free air. No significant fluid collection. Vasculature: Atherosclerotic disease of the abdominal aorta. Lymph nodes: Unremarkable. No enlarged lymph nodes. Bladder: Distended urinary bladder. Reproductive: Unremarkable as visualized. Bones/joints: Mild anterolisthesis of L5 on S1 secondary to bilateral L5 pars interarticularis defects. Stenosis of the spinal canal at L3-L4. Mild dextroscoliosis of the lumbar spine. Soft tissues: Fat containing bilateral inguinal hernias, left larger than right. Small fat containing umbilical hernia. IMPRESSION: Mild left hydroureteronephrosis to the level of a 5 mm calculus in the distal left ureter. Electronically signed by: Santo Mei On 07/15/2019 00:20:15 AM
--- NOTE | 2019-07-15 00:50 | REP ---
Clinical: Chest pain . Comparison: 09/29/2017 . Findings: The mediastinum and cardiac silhouette are stable and within normal limits for portable technique. The lung cheema are clear without acute consolidation, effusion, or pneumothorax. Skeletal structures are intact. Impression: No acute cardiopulmonary process appreciated. Electronically Signed by Eleuterio Ewing MD 07/15/2019 12:41 A
[2019-07-15] MEDS ORDERED: NS 1,000 ML IV SCH (01:25)
[2019-07-15] MEDS ORDERED: TAMSULOSIN 0.4 MG CAP PO ONE (01:30)
[2019-07-15] MEDS ORDERED: MORPHINE 4 MG/ML 1ML VIAL/SYRINGE (J2270) IV ONE ×2 (03:15)
[2019-07-15 04:23] LABS: CK-MB VALUE MASS < 1.0 NG/ML (<3.6); CPK CREATINE PHOSPHOKINASE 60 U/L (39-308); MB/CK RELATIVE INDEX 1.67 (< OR =4); TROPONIN I < 0.02 NG/ML (< 0.10)
[2019-07-15] MEDS ORDERED: ZOFR4TAB16 PO (04:44)
[2019-07-15] MEDS ORDERED: FLOM0.4C39 PO ×2 (04:45→23:54)
[2019-07-15 04:59] VITALS: BP 166/81
--- NOTE | 2019-07-15 05:45 | ECGEPIP ---
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
[2019-07-15] MEDS ORDERED: ONDA-83 PO (23:54)
[2019-07-15] MEDS ORDERED: QUET1TAB8 PO ×2 (23:54)
--- NOTE | 2019-07-16 20:13 | ECGEPIP ---
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
== END 2019-07-15 05:02 | disposition home or self-care (01) ==
LOC: M ED 21:43
DX: N20.1 Calculus of ureter (principal); N13.39 Other hydronephrosis; R07.9 Chest pain, unspecified; R06.02 Shortness of breath; I10 Essential (primary) hypertension; F41.9 Anxiety disorder, unspecified; F32.9 Major depressive disorder, single episode, unspecified; F17.200 Nicotine dependence, unspecified, uncomplicated; Z79.899 Other long term (current) drug therapy
CPT/HCPCS: 71045; 74176; 80048; 80076; 81001; 82550; 82553; 83690; 85025; 85379; 93005; 93041; 94760; 96361; 96374; 96376; 99285; J2270

== ENCOUNTER → 2019-07-14 | Outpatient (CLI) | payer OTHER ==
[2019-07-14 20:34] LABS: BASO % 0.2 % (0.0-1.0); EOS % 0.1 % (0.0-3.0); HEMATOCRIT 48.3 % (42.0-52.0); HEMOGLOBIN 16.5 g/dl (13.5-17.5); LYMPH # 1.5 10^3/uL (1.5-5.0); LYMPH % 7.4 % (24.0-44.0); MEAN CORPUSCULAR HEMOGLOBIN 33.7 pg (27.0-33.0); MEAN CORPUSCULAR HGB CONC 34.2 g/dl (32.0-36.5); MEAN CORPUSCULAR VOLUME 98.6 fl (80.0-96.0); MONO # 1.6 10^3/uL (0.0-0.8); MONO % 8.1 % (0.0-5.0); NEUTROPHILS # 16.4 10^3/uL (1.5-8.5); NEUTROPHILS % 83.7 % (36.0-66.0); PLATELET COUNT, AUTOMATED 297 10^3/uL (150-450); WHITE BLOOD COUNT 19.6 10^3/uL (4.0-10.0)
[2019-07-14 20:44] LABS: ALBUMIN 4.4 GM/DL (3.2-5.2); BILIRUBIN,TOTAL 0.9 MG/DL (0.2-1.0); CREATININE FOR GFR 1.83 MG/DL (0.70-1.30); GLOMERULAR FILTRATION RATE 40.4 (>49); POTASSIUM SERUM 4.5 MEQ/L (3.5-5.1); TOTAL PROTEIN 8.4 GM/DL (6.4-8.2)
== END ==
LOC: M WUC 15:41
PROVIDERS: ATTEND Physician Assistant
DX: R10.814 Left lower quadrant abdominal tenderness (principal)

== ENCOUNTER 2019-07-15 21:10 | Inpatient (IN) | payer OTHER ==
[~2019-07-15] VITALS: Ht 172.7 cm; Wt 86.8 kg
[2019-07-15] MEDS: QUEtiapine FUMARATE 100 MG TAB PO SCH (03:05)
[~2019-07-15 21:10] MED LIST changes: +ALPR1TAB3 PO; +FLOM0.4C39 PO; +HYDR-4517 PO; +ZOFR4TAB16 PO
[2019-07-15] MEDS ORDERED: GI COCKTAIL 50ML BTL(HYOSCYAMINE/MAALOX/LIDOCAINE VISCOUS)(1:3:1) PO ONE (21:45)
[2019-07-15] MEDS ORDERED: ONDANSETRON 4MG/2ML VIAL (J2405) IV ONE (21:45)
[2019-07-15] MEDS ORDERED: NS 1,000 ML IV ONE (21:45)
[2019-07-15 21:58] LABS: BASO # 0.1 10^3/uL (0.0-0.2); BASO % 0.3 % (0.0-1.0); EOS # 0.1 10^3/uL (0.0-0.5); EOS % 0.6 % (0.0-3.0); HEMATOCRIT 48.1 % (42.0-52.0); HEMOGLOBIN 15.8 g/dl (13.5-17.5); LYMPH # 1.8 10^3/uL (1.5-5.0); LYMPH % 9.6 % (24.0-44.0); MEAN CORPUSCULAR HEMOGLOBIN 32.1 pg (27.0-33.0); MEAN CORPUSCULAR HGB CONC 32.8 g/dl (32.0-36.5); MEAN CORPUSCULAR VOLUME 97.8 fl (80.0-96.0); MONO # 1.5 10^3/uL (0.0-0.8); NEUTROPHILS % 80.9 % (36.0-66.0); PLATELET COUNT, AUTOMATED 260 10^3/uL (150-450); RED BLOOD COUNT 4.92 10^6/uL (4.30-6.10); WHITE BLOOD COUNT 18.6 10^3/uL (4.0-10.0)
--- NOTE | 2019-07-15 22:26 | REPVR ---
PROCEDURE INFORMATION: Exam: CT Abdomen And Pelvis Without Contrast Exam date and time: 07/15/2019 9:56 PM Age: 59 years old Clinical indication: Abdominal pain; Generalized; Additional info: Pain, renal stone, hydronephrosis TECHNIQUE: Imaging protocol: Computed tomography of the abdomen and pelvis without contrast. Radiation optimization: All CT scans at this facility use at least one of these dose optimization techniques: automated exposure control; mA and/or kV adjustment per patient size (includes targeted exams where dose is matched to clinical indication); or iterative reconstruction. COMPARISON: CT ABD PELVIS W/O CONTRAST 07/14/2019 11:51 PM FINDINGS: Liver: Normal. No mass. Gallbladder and bile ducts: Normal. No calcified stones. No ductal dilation. Pancreas: Normal. No ductal dilation. Spleen: Normal. No splenomegaly. Adrenals: There is bilateral adrenal hyperplasia. Kidneys and ureters: There is a 5 mm. obstructive ureteral calculus located distal left ureter resulting in moderate proximal hydroureteronephrosis. There is moderate periureteral and perinephric stranding. No urinoma demonstrated. There has been no significant migration of the calculus distally in comparison to the prior study of 07/14/2019. Stomach and bowel: Unremarkable. No obstruction. No mucosal thickening. Appendix: No evidence of appendicitis. Intraperitoneal space: Unremarkable. No free air. No significant fluid collection. Vasculature: The aorta demonstrates moderate atherosclerotic calcification. Lymph nodes: Unremarkable. No enlarged lymph nodes. Bladder: Unremarkable as visualized. Reproductive: The prostate gland demonstrates mild hyperplasia. Bones/joints: Moderate to severe central spinal stenosis L3-L4 and L4-L5. There is a grade 1 anterior spondylolisthesis of L5 on S1 secondary to bilateral L5 spondylolysis. Soft tissues: Bilateral inguinal hernias. No incarceration. IMPRESSION: 1. There is a grade 1 anterior spondylolisthesis of L5 on S1 secondary to bilateral L5 spondylolysis. Spinal stenosis at L3-L4 and L4-L5 as described above. 2. There is a 5 mm. obstructive ureteral calculus located distal left ureter resulting in moderate proximal hydroureteronephrosis. There is moderate periureteral and perinephric stranding. No urinoma demonstrated. There has been no significant migration of the calculus distally in comparison to the prior study of 07/14/2019. 3. There is bilateral adrenal hyperplasia. 4. Mild prostatic hyperplasia. Electronically signed by: Nikolas Green On 07/15/2019 22:26:14 PM
[2019-07-15 22:44] LABS: ALBUMIN 4.1 GM/DL (3.2-5.2); ALT/SGPT 25 U/L (12-78); BILIRUBIN,DIRECT 0.3 MG/DL (0.0-0.2); BILIRUBIN,TOTAL 0.9 MG/DL (0.2-1.0); BLOOD UREA NITROGEN 22 MG/DL (7-18); CALCIUM LEVEL 9.3 MG/DL (8.8-10.2); CARBON DIOXIDE LEVEL 32 MEQ/L (21-32); CHLORIDE LEVEL 100 MEQ/L (98-107); CK-MB VALUE MASS < 1.0 NG/ML (<3.6); CPK CREATINE PHOSPHOKINASE 66 U/L (39-308); CREATININE FOR GFR 1.74 MG/DL (0.70-1.30); GLOMERULAR FILTRATION RATE 42.8 (>49); GLUCOSE, FASTING 107 MG/DL (70-100); LIPASE 265 U/L (73-393); MB/CK RELATIVE INDEX 1.52 (< OR =4); POTASSIUM SERUM 3.3 MEQ/L (3.5-5.1); SODIUM LEVEL 135 MEQ/L (136-145); TOTAL PROTEIN 8.6 GM/DL (6.4-8.2); TROPONIN I < 0.02 NG/ML (< 0.10)
[2019-07-15] MEDS ORDERED: cefTRIAXone SOD 1 GM in D5W MINI-BAG PLUS 50 ML IV ONE (22:45)
[2019-07-15] MEDS: MORPHINE 2 MG/ML 1ML VIAL (J2270) IV PRN (23:10)
[2019-07-15] MEDS ORDERED: ONDA-83 PO (23:54)
[2019-07-15] MEDS ORDERED: QUET1TAB8 PO ×2 (23:54)
[2019-07-15] MEDS ORDERED: FLOM0.4C39 PO (23:54)
[2019-07-16] VITALS (8 sets, daily range): BP systolic 117–149; BP diastolic 68–88
[2019-07-16] MEDS: MORPHINE 2 MG/ML 1ML VIAL (J2270) IV PRN (00:04)
[2019-07-16] MEDS ORDERED: NS 1,000 ML IV ONE (00:30)
[2019-07-16] MEDS ORDERED: cefTRIAXone SOD 1 GM VIAL (J0696) IM ONE (01:30)
[2019-07-16] MEDS ORDERED: ALPRAZolam 0.5 MG TAB PO PRN (01:30)
[2019-07-16] MEDS ORDERED: ACETAMINOPHEN TAB 650MG DOSE (2X325MG) PO PRN (01:30)
[2019-07-16] MEDS ORDERED: ONDANSETRON 4MG/2ML VIAL (J2405) IV PRN ×2 (01:45→18:45)
[2019-07-16] MEDS ORDERED: MORPHINE 4 MG/ML 1ML VIAL/SYRINGE (J2270) IV ONE (01:45)
[2019-07-16] MEDS: HEPARIN SOD (PORCINE) 5000 UNITS/ML VIAL SC SCH ×3 (05:19→21:13)
--- NOTE | 2019-07-16 05:29 | HPEPDOC ---
General Date of Admission Jul 16, 2019 at 01:26 Date of Service: Jul 16, 2019 Attending Physician: DANISHA CLEMENT MD Chief Complaint The patient is a 59-year-old male admitted with a reason for visit of Acute Renal Failure,Pyelonephritis,Ureterilithiasi. Source: Patient, Family Exam Limitations: No limitations Timing/Duration: Day(s) Severity: Severe Associated Symptoms: Other (LLQ pain) History of Present Illness 59 yo man with a history of bipolar, anxiety, chronic back pain, current smoker who presented with 1 day history of LLQ/L suprapubic pain with associated nausea and vomiting one day after presenting to the ED for the same and he was natasha gnosed with a L ureteral calculus and discharged home norky to follow up with his PCP. He represented today because on inability to take PO with N/V as well as the pain. In the ED he was hypertensive to 167/97, afebrile, HR 85, RR20 and saturating 95% on room air. He was given 1L NS, 2mg of morphine, zofran and started on ceftriaxone. Workup today was notable for the 5mm ureteral stone that appears obstructive at this time in the distal L ureter with interval development of moderate proximal hydrouretonephrosis as well as periuretero and perinephric stranding. Dr. Covarrubias was consulted by the ED and recommended admission to medicine and will see the patient later day. Home Medications Scheduled [place] Carbonate (Drav[place] Carbonate) 300 Mg Tablet, 300 MG PO DAILY, (Reported) Quetiapine Fumarate (Quetiapine Fumarate) 100 Mg Tablet, 100 MG PO DAILY, (Reported) Quetiapine Fumarate (Quetiapine Fumarate) 100 Mg Tablet, 200 MG PO QHS, (Reported) Tamsulosin HCl (Flomax) 0.4 Mg Capsule, 0.4 MG PO DAILY, (Reported) once daily 1/2 hour following the same meal each day Scheduled PRN Alprazolam (Alprazolam) 1 Mg Tablet, 1 MG PO QID PRN for ANXIETY, (Reported) Hydrocodone/Acetaminophen (Hydrocodone-Acetamin 10-325 mg) 1 Each Tablet, 10-325 MG PO Q6HP PRN for PAIN OR DYSPNEA, (Reported) Ondansetron HCl (Ondansetron HCl) 4 Mg Tablet, 4 MG PO Q6H PRN for NAUSEA OR VOMITING, (Reported) Allergies Coded Allergies: No Known Allergies (Unverified , 10/15/17) Past Medical History Medical History bipolar, anxiety, chronic back pain, current smoker, HTN Surgical History None reported Family History Significant Family History: No pertinent family hx Social History * Smoker: current smoker Alcohol: Denies Drugs: denies Recent Travel/Sick Contacts: Denies: Recent travel, Recent sick contacts Psychosocial History: Anxiety, Bipolar A-FIB/CHADSVASC A-FIB History Current/History of A-Fib/PAF?: No Current PO Anticoag Therapy: No Age/Risk Factor Scoring CHADSVASC: CHADSVASC Response (Comments) Value Age Risk Factor Age < 65 years old 0 Gender Risk Factor Male 0 Hx of CHF No 0 Hx of HTN Yes 1 Hx of Stroke/TIA/or VTE No 0 Hx of Diabetes No 0 Hx of Vascular Disease No 0 Total 1 Treatment Treatment ordered: NONE Reason Anticoagulant not given: Not indicated/[id number] Review of Systems Constitutional: Denies: Chills, Fever, Night Sweats Eyes: Denies: Pain, Vision change ENT: Denies: Head Aches, Ear Pain, Dysphagia Skin: Denies: Rash, Lesions, Breakdown Pulmonary: Denies: Dyspnea, Cough Cardiovascular: Denies: Chest Pain, Palpitations, Orthopnea, Paroxysmal Noc. Dyspnea, Lt Headedness Gastrointestinal: Reports: Nausea, Vomiting, Abdominal Pain; Denies: Diarrhea, Constipation, Melena, Hematochezia Genitourinary: Reports: Retention (has not spontaneously urinated since yesterda, require straight cath in the ED today); Denies: Dysuria, Frequency, Incontinence Hematologic: Denies: Bruising, Bleeding Excessively Endocrine: Denies: Polydipsia, Polyphagia, Polyuria, Heat Intolerance, Cold Intolerance, Other Endocrine Sx Musculoskeletal: Denies: Neck Pain, Back Pain, Joint Pain, Muscle Pain, Spasms Neurological: Denies: Weakness, Numbness, Change in speech, Confusion Psych: Reports: Mood Normal; Denies: Depression, Memory Issues Physical Examination General Exam: Positive: Alert, No Acute Distress Eye Exam: Positive: PERRLA, Conjunctiva & lids normal, EOMI; Negative: Sclera icteric ENT Exam: Positive: Atraumatic, Mucous membr. moist/pink, Pharynx Normal Neck Exam: Positive: Supple; Negative: JVD, thyromegaly Chest Exam: Positive: Clear to auscultation, Normal air movement Heart Exam: Positive: Rate Normal, Regular Rhythm, Normal S1, Normal S2; Negative: Murmurs, Rubs Telemetry: Positive: No significant arrhythmia Abdomen Exam: Positive: Normal bowel sounds, Soft, Tenderness (LLQ, also with L flank pain); Negative: Hepatospenomegaly Extremity Exam: Positive: Normal pulses; Negative: Clubbing, Cyanosis, Edema Skin Exam: Positive: Nl turgor and temperature; Negative: Breakdown, Lesion Neuro Exam: Positive: Normal Speech, Cranial Nerves 3-12 NL Psych Exam: Positive: Mental status NL, Mood NL, Oriented x 3 Vital Signs Vital Signs Date Time Temp Pulse Resp B/P (MAP) Pulse Ox O2 Delivery O2 Flow Rate FiO2 07/16/19 03:05 98.1 80 17 149/88 (108) 98 Room Air Laboratory Data Labs 24H Laboratory Tests 2 07/15/19 21:38: Immature Granulocyte % (Auto) 0.6, Neutrophils (%) (Auto) 80.9H, Lymphocytes (%) (Auto) 9.6L, Monocytes (%) (Auto) 8.0H, Eosinophils (%) (Auto) 0.6, Basophils (%) (Auto) 0.3, Neutrophils # (Auto) 15.0H, Lymphocytes # (Auto) 1.8, Monocytes # (Auto) 1.5H, Eosinophils # (Auto) 0.1, Basophils # (Auto) 0.1, Nucleated Red Blood Cells % (auto) 0.0, Anion Gap 3L, Glomerular Filtration Rate 42.8L, Lactic Acid Level 1.6, Calcium Level 9.3, Total Bilirubin 0.9, Direct Bilirubin 0.3H, Aspartate Amino Transf (AST/SGOT) 12, Alanine Aminotransferase (ALT/SGPT) 25, Alkaline Phosphatase 88, Total Creatine Kinase 66, Creatine Kinase MB < 1.0, Creatine Kinase MB Relative Index 1.52, Troponin I < 0.02, Total Protein 8.6H, Albumin 4.1, Albumin/Globulin Ratio 0.91L, Lipase 265 07/15/19 23:11: Urine Color YELLOW, Urine Appearance CLEAR, Urine pH 7.0, Urine Specific Farrell 1.027, Urine Protein 1+H, Urine Glucose (UA) NEGATIVE, Urine Ketones TRACEH, Urine Blood NEGATIVE, Urine Nitrite NEGATIVE, Urine Bilirubin NEGATIVE, Urine Urobilinogen 2.0H, Urine Leukocyte Esterase NEGATIVE, Urine WBC (Auto) 1, Urine RBC (Auto) 3, Urine Hyaline Casts (Auto) 0, Urine Bacteria (Auto) NEGATIVE, Urine Squamous Epithelial Cells 0, Urine Mucus (Auto) SMALL, Urine Sperm (Auto) CBC/BMP Laboratory Tests 07/15/19 21:38 Microbiology Microbiology 07/15/19 Blood Culture, Received Pending 07/15/19 Blood Culture, Received Pending Assessment/Plan 59 yo man with a history of bipolar, anxiety, chronic back pain, current smoker who presented with 1 day history of LLQ/L suprapubic pain with associated nausea and vomiting one day after presenting to the ED for the same and he was diagnosed with a L ureteral calculus now with interval development of moderate p roximal hydrouretonephrosis as well as periuretero and perinephric stranding admitted and placed on antibiotics pending urology evaluation. L ureteral stone with moderate ureterohydronephrosis and surrounding fat stranding: -continue ceftriaxone -Dr. Covarrubias consulted by ED, order placed, pending evaluation -s/p 2L NS -PVRs Q8H, may require straight cath -flomax -morphone 4Q4H for severe pain -tylenol for mild pain -zofran PRN for nausea Renal injury: chronicity unclear though work up for LUCINDA would be appropriate given ongoing obstructing ureteral calculus -urine Na, urine Cr -follow up AM BMP, s/p 2L NS Bipolar: -continue home lithium and seroquel Anxiety: -continue home alprazolam DVT ppx: heparin Diet: NPO at midnight Dispo: Pending urology evaluation and clinical improvement Plan / VTE VTE Prophylaxis Ordered?: Yes DANISHA CLEMENT MD Jul 16, 2019 05:29
--- NOTE | 2019-07-16 08:51 | SMCUROLCON ---
Urology Consultation General Date of Consultation 07/16/19 Reason For Consultation This patient is seen for Acute Renal Failure,Pyelonephritis,Ureterilithiasi. History of Present Illness The patient is a 59-year-old with a past medical history for renal calculi at age 23. He has been stone free since then. Active. He states that he began having some left-sided flank pain about 3 days ago, but he is unsure of exact date. The pain persisted and finally presented to the emergency room where he was with a ureteral calculus and discharged home on Flomax and pain medications. As the pain persisted. He came back to the emergency room and this time was admitted for pain control. He denies any voiding problems in the past. CT scan shows a distal left 5 mm calculus with hydronephrosis and some perinephric s tranding. 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 He currently does not drink, but had consumed 5-6 beers daily but he quit drinking several years ago. Medications Current Medications Current Medications Medications (Trade) Dose Ordered Sig/Vivi Route PRN Reason Start Time Stop Time Status Last Admin Dose Admin Acetaminophen (Tylenol Tab) 650 mg Q4H PRN PO PAIN OR FEVER 07/16/19 01:30 Alprazolam (Xanax) 1 mg QID PRN PO ANXIETY 07/16/19 01:30 Ceftriaxone Sodium 1 gm/ Dextrose 50 ml @ 100 mls/hr Q24H IV 07/16/19 09:00 Heparin Sodium (Porcine) (Heparin) 5,000 units Q8H SC 07/16/19 06:00 Home Med (Med Rec Complete!) ASDIRECTED XX 07/16/19 00:00 07/15/19 23:59 DC Jennette Carbonate (Jennette Carbonate) 300 mg DAILY PO 07/16/19 09:00 Morphine Sulfate (Morphine Sulfate Inj) 2 mg Q30M PRN IV MODERATE PAIN (PS 5-7) 07/15/19 22:45 07/16/19 00:04 DC 07/16/19 00:04 Ondansetron HCl (ZOFRAN INJection) 4 mg Q4HP PRN IV NAUSEA OR VOMITING 07/16/19 01:45 Potassium Chloride (Micro-K Extencaps) 30 meq Q2H PO 07/16/19 08:15 07/16/19 10:16 Quetiapine Fumarate (SEROquel) 100 mg DAILY PO 07/16/19 09:00 Quetiapine Fumarate (SEROquel) 200 mg QHS PO 07/15/19 21:00 Tamsulosin HCl (Flomax) 0.4 mg DAILY PO 07/16/19 09:00 Allergies Allergies: Coded Allergies: No Known Allergies (Unverified , 10/15/17) Review of Systems General: Reports: Normal Appetite; Denies: Fatigue, Malaise Constitutional: Denies: Fever, Chills, Sweats, Weakness, Malaise Eyes: Denies: Pain, Vision change ENT: Denies: Head Aches, Sore Throat, Epistaxis Skin: Denies: Rash, Lesions, Breakdown, Nail Changes Pulmonary: Denies: Dyspnea, Cough Cardiovascular: Denies Chest Pain, Denies Palpitations Gastrointestinal: Denies: Nausea, Vomiting, Abdominal Pain Genitourinary: Denies: Dysuria, Frequency, Incontinence, Hematuria Hematologic: Denies: Bruising, Bleeding Excessively Endocrine: Denies: Polydipsia, Polyphagia, Polyuria Musculoskeletal: Denies: Neck Pain, Back Pain Neurological: Denies: Weakness, Numbness, Incoordination, Change in Speech Psych: Reports: Mood Normal; Denies: Anxiety, Depression Physical Examination General Exam: Alert, No Acute Distress EYE EXAM: PERRLA, Conjunctiva & lids normal, EOMI; No: Sclera icteric ENT EXAM: Atraumatic, Mucous membr. moist/pink, Pharynx Normal Neck Exam: Supple; No: JVD, thyromegaly Chest Exam: Clear to auscultation, Normal air movement Heart Exam: Rate Normal, Regular Rhythm, Normal S1, Normal S2; No: Murmurs, Rubs Abdomen Exam: Normal Bowel Sounds, Soft; No: Tenderness, Hepatospenomegaly Male Exam: Normal Genital Exam Extremity Exam: Normal Pulses; No: Clubbing, Cyanosis, Edema Skin Exam: Nl turgor and temperature; No: Rash, Breakdown Neuro Exam: Normal Gait, Normal Speech, Cranial Nerves 3-12 NL, Reflexes 2+ Psych Exam: Mental status NL, Mood NL, Oriented x 3 Vital Signs/I&O Vital Signs Date Time Temp Pulse Resp B/P (MAP) Pulse Ox O2 Delivery O2 Flow Rate FiO2 07/16/19 06:00 98.1 74 16 140/81 (100) 96 07/16/19 03:05 Room Air I&O- Last 24 Hours up to 6 AM 07/16/19 06:00 Intake Total 2050 ml Balance 2050 ml Laboratory Data 24H Labs Laboratory Tests 2 07/15/19 21:38: Immature Granulocyte % (Auto) 0.6, Neutrophils (%) (Auto) 80.9H, Lymphocytes (%) (Auto) 9.6L, Monocytes (%) (Auto) 8.0H, Eosinophils (%) (Auto) 0.6, Basophils (%) (Auto) 0.3, Neutrophils # (Auto) 15.0H, Lymphocytes # (Auto) 1.8, Monocytes # (Auto) 1.5H, Eosinophils # (Auto) 0.1, Basophils # (Auto) 0.1, Nucleated Red Blood Cells % (auto) 0.0, Anion Gap 3L, Glomerular Filtration Rate 42.8L, Lactic Acid Level 1.6, Calcium Level 9.3, Total Bilirubin 0.9, Direct Bilirubin 0.3H, Aspartate Amino Transf (AST/SGOT) 12, Alanine Aminotransferase (ALT/SGPT) 25, Alkaline Phosphatase 88, Total Creatine Kinase 66, Creatine Kinase MB < 1.0, Creatine Kinase MB Relative Index 1.52, Troponin I < 0.02, Total Protein 8.6H, Albumin 4.1, Albumin/Globulin Ratio 0.91L, Lipase 265 07/15/19 23:11: Urine Color YELLOW, Urine Appearance CLEAR, Urine pH 7.0, Urine Specific [place] 1.027, Urine Protein 1+H, Urine Glucose (UA) NEGATIVE, Urine Ketones TRACEH, Urine Blood NEGATIVE, Urine Nitrite NEGATIVE, Urine Bilirubin NEGATIVE, Urine Urobilinogen 2.0H, Urine Leukocyte Esterase NEGATIVE, Urine WBC (Auto) 1, Urine RBC (Auto) 3, Urine Hyaline Casts (Auto) 0, Urine Bacteria (Auto) NEGATIVE, Urine Squamous Epithelial Cells 0, Urine Mucus (Auto) SMALL, Urine Sperm (Auto) 07/16/19 06:45: Urine Random Creatinine 245.0, Urine Random Sodium 153 CBC/BMP Laboratory Tests 07/15/19 21:38 Microbiology Microbiology 07/15/19 Blood Culture, Received Pending 07/15/19 Blood Culture, Received Pending Assessment Distal left ureteral calculus with obstruction Plan Patient will continue hydration today and later this afternoon will be taken to the operating room for cystoscopy, left retrograde pyelogram, ureteroscopic laser lithotripsy and stent insertion. The procedure, alternatives, advantages, disadvantages and possible complications were discussed with the patient. Possible complications included, but are not limited to, infection, pain, perforation, strictures, and bleeding. The patient consented the procedure and expressed acknowledgment of the possible complications. Time Spent on Consult: Time Spent / Consult (Minutes): 45 MARYAM LA MD Jul 16, 2019 08:51
[2019-07-16] MEDS ORDERED: cefTRIAXone SOD 1 GM in D5W MINI-BAG PLUS 50 ML IV SCH (09:00)
[2019-07-16] MEDS ORDERED: ceFAZolin SOD 2 GM in IV 1 EA IV ONE (09:30)
[2019-07-16] MEDS: POTASSIUM CHLORIDE 10 MEQ SR TABLET PO SCH ×2 (10:19→11:39)
[2019-07-16] MEDS: LITHIUM CARBONATE 300 MG CAP PO SCH (10:19)
[2019-07-16] MEDS: TAMSULOSIN 0.4 MG CAP PO SCH (10:19)
[2019-07-16] MEDS: QUEtiapine FUMARATE 100 MG TAB PO SCH ×2 (10:32→21:13)
[2019-07-16] MEDS ORDERED: MORPHINE 2 MG/ML 1ML VIAL (J2270) IV ONE (11:30)
[2019-07-16 12:17] LABS: CALCIUM LEVEL 8.3 MG/DL (8.8-10.2); CREATININE FOR GFR 1.86 MG/DL (0.70-1.30); GLOMERULAR FILTRATION RATE 39.6 (>49); POTASSIUM SERUM 3.9 MEQ/L (3.5-5.1)
[2019-07-16 13:41] LABS: HEMATOCRIT 39.9 % (42.0-52.0); MEAN CORPUSCULAR HEMOGLOBIN 32.4 pg (27.0-33.0); MEAN CORPUSCULAR HGB CONC 32.8 g/dl (32.0-36.5); MEAN CORPUSCULAR VOLUME 98.8 fl (80.0-96.0); PLATELET COUNT, AUTOMATED 203 10^3/uL (150-450); RED BLOOD COUNT 4.04 10^6/uL (4.30-6.10); WHITE BLOOD COUNT 12.2 10^3/uL (4.0-10.0)
[2019-07-16 13:42] LABS: HEMOGLOBIN 13.1 g/dl (13.5-17.5)
[2019-07-16 14:25] LABS: MAGNESIUM LEVEL 2.4 MG/DL (1.8-2.4); POTASSIUM SERUM 4.4 MEQ/L (3.5-5.1)
[2019-07-16] MEDS ORDERED: dexameTHASONE 4 MG/ML 1ML VIAL (J1100) As Ordered ONE (16:40)
[2019-07-16] MEDS ORDERED: LIDOCAINE 2% INJ 100 MG/5 ML SDV (FOR ANES.) As Ordered ONE (16:40)
[2019-07-16] MEDS ORDERED: ONDANSETRON 4MG/2ML VIAL (J2405) As Ordered ONE (16:40)
[2019-07-16] MEDS ORDERED: fentaNYL 100 MCG/2 ML INJECTION (J3010) As Ordered ONE (16:40)
[2019-07-16] MEDS ORDERED: propofoL 200 MG/20 ML VIAL As Ordered ONE (16:40)
[2019-07-16] MEDS ORDERED: MIDAZOLAM INJ 2 MG/2 ML VIAL (J2250) As Ordered ONE (16:41)
[2019-07-16] MEDS ORDERED: CONRAY-60 60% 50ML VIAL (Q9961) As Ordered ONE (16:44)
[2019-07-16] MEDS ORDERED: ceFAZolin 2 GM/D5W 50 ML IV BAG (J0690 PER 500MG) As Ordered ONE (17:35)
[2019-07-16] MEDS ORDERED: KETOROLAC 30 MG/ML VIAL (J1885) IV PRN (18:45)
[2019-07-16] MEDS ORDERED: PERCOCET 5MG/325MG TAB PO PRN (18:45)
[2019-07-16] MEDS ORDERED: fentaNYL 100 MCG/2 ML INJECTION (J3010) IV PRN (18:45)
[2019-07-16] MEDS ORDERED: METOCLOPRAMIDE INJ 10MG/2ML VIAL (J2765) IV PRN (18:45)
[2019-07-16] MEDS ORDERED: LR 1,000 ML IV SCH (18:45)
--- NOTE | 2019-07-16 19:06 | REP ---
RETROGRADE PYELOGRAM: 07/16/2019. Comparison: CT abdomen pelvis 07/15/2019 Clinical history: Left internal ureteral stent placement. Findings: Two images from C-arm fluoroscopy provided to Dr. Ortiz of the urology division are reviewed. Initial one shows the cystoscope and contrast extending from the lower ureter into the upper ureter. The kidney and collecting system are excluded from the field and there appears to be a filling defect in the distal ureter, several centimeters from the UVJ. The ureter above the filling defect is dilated. The second image shows a pigtail catheter coiled proximally in the renal pelvis. There is no contrast in this image. There are no other images provided. Fluoroscopy time: 24 seconds. Electronically Signed by Marco Rushing MD 07/16/2019 08:53 P
--- NOTE | 2019-07-16 19:06 | IPNPDOC ---
Date Seen The patient was seen on 07/16/19. Progress Note SUBJECTIVE: Pat was seen and examined this morning while lying upright in bed. His left lower quadrant abdominal pain, left inguinal, and left flank pain all recently returned just before our visit this morning after having dissipated for much of the night. His associated nausea has also returned this morning. He has not vomited since last evening. He is currently NPO in preparation for a urologic surgery this afternoon to address his left ureteral stone and proximal hydronephrosis. He was straight cathed last evening due to urinary retention, and currently does not have urge to urinate. He was recently visited by the urologist who will be performing this afternoon's procedure and will be given preop Ancef. Patient denies fever, chills, night sweats, confusion, headache, dizziness, sy ncope, chest pain or pressure, or shortness of breath at this time. OBJECTIVE PHYSICAL EXAMINATION: VITAL SIGNS: Please see below. GENERAL: Pleasant and interactive male who appears to be in moderate discomfort. He does not appear to be in acute distress of any kind. Alert and oriented 3. Well-developed and well-nourished. HEENT: Normocephalic, atraumatic. Anicteric and non-injected sclera. Dry mucous membranes with some moderate exudate present on the uvula. CARDIOVASCULAR: Regular rate and regular rhythm. S1, S2 auscultated. No murmurs or rubs appreciated. No JVD. RESPIRATORY: Clear to auscultation bilaterally with no wheezes, crackles, or rhonchi appreciated. Adequate tidal volume and symmetric chest expansion. Speaking in full sentences and breathing on room air. ABDOMINAL: Soft, nondistended. Tenderness in the left lower abdominal quadrant and left inguinal/suprapubic area with associated localized voluntary guarding. There is no rigidity. No palpable masses are appreciated. Hypoactive bowel sounds present. EXTREMITIES: No lower extremity edema. 2+ radial and posterior tibial pulses bilaterally. NEUROLOGICAL: Awake, alert and oriented 3. No focal neurological deficits appreciated. Responding appropriately to questions and commands. PSYCHOLOGICAL: Mood and affect appear appropriate LABORATORY DATA, IMAGING STUDIES, MICROBIOLOGY: Please see below. ASSESSMENT AND PLAN: This is a 59-year-old male with history of anxiety, bipolar disorder, active tobacco use, and chronic lumbago who presented to the emergency department twice this week with left lower quadrant and left suprapubic pain with associated nausea and vomiting. Imaging diagnosed a left ureteral stone with moderate proximal hydronephrosis. Patient was to undergo cystoscopy with left retrograde pyelogram and ureter lithotripsy on afternoon of 07/16. #Left ureteral stone with moderate ureterohydronephrosis and surrounding fat stranding: -Scheduled for afternoon cystoscopy with left retrograde pyelogram and ureter lithotripsy with Dr. Ortiz (urology) -NPO since midnight in preparation of surgery -Morning WBC 12.2; down from 18.6 last night -Preop dose of Ancef ordered -Urine culture pending -Flomax ordered; patient receiving straight cath last night -Left abdominal suprapubic and inguinal pain returned this morning and one time IV morphine dose given; Tylenol was previously ordered for mild pain -PRN Zofran ordered for nausea -Empiric Rocephin that was ordered last night has been discontinued. Patient will receive preoperative Ancef today. WBC came down this morning and UA was unremarkable. #Acute kidney injury -Morning Cr 1.86; baseline is 1-1.1 -Received a liter of normal saline last night -Urine Cr and urine Na were within normal limits this morning #Hypokalemia -Serum potassium last night was 3.3 -Two, 30mEq PO KCL doses ordered today with follow-up sK and sMg levels ordered -Continue to follow #Bipolar disorder -c/w home Seroquel and lithium #Anxiety -c/w home alprazolam #DVT prophylaxis: Heparin SC DISPOSITION: Pending outcome of this afternoon's urological procedure and clinical improvement. VS, I&O, 24H, Fishbone Vital Signs/I&O Vital Signs Date Time Temp Pulse Resp B/P (MAP) Pulse Ox O2 Delivery O2 Flow Rate FiO2 07/16/19 14:00 98.8 71 18 126/78 (94) 92 Room Air I&O- Last 24 Hours up to 6 AM 07/16/19 06:00 Intake Total 2050 ml Balance 2050 ml Laboratory Data 24H LABS Laboratory Tests 2 07/15/19 21:38: Immature Granulocyte % (Auto) 0.6, Neutrophils (%) (Auto) 80.9H, Lymphocytes (%) (Auto) 9.6L, Monocytes (%) (Auto) 8.0H, Eosinophils (%) (Auto) 0.6, Basophils (%) (Auto) 0.3, Neutrophils # (Auto) 15.0H, Lymphocytes # (Auto) 1.8, Monocytes # (Auto) 1.5H, Eosinophils # (Auto) 0.1, Basophils # (Auto) 0.1, Nucleated Red Blood Cells % (auto) 0.0, Anion Gap 3L, Glomerular Filtration Rate 42.8L, Lactic Acid Level 1.6, Calcium Level 9.3, Total Bilirubin 0.9, Direct Bilirubin 0.3H, Aspartate Amino Transf (AST/SGOT) 12, Alanine Aminotransferase (ALT/SGPT) 25, Alkaline Phosphatase 88, Total Creatine Kinase 66, Creatine Kinase MB < 1.0, Creatine Kinase MB Relative Index 1.52, Troponin I < 0.02, Total Protein 8.6H, Albumin 4.1, Albumin/Globulin Ratio 0.91L, Lipase 265 07/15/19 23:11: Urine Color YELLOW, Urine Appearance CLEAR, Urine pH 7.0, Urine Specific [place] 1.027, Urine Protein 1+H, Urine Glucose (UA) NEGATIVE, Urine Ketones TRACEH, Urine Blood NEGATIVE, Urine Nitrite NEGATIVE, Urine Bilirubin NEGATIVE, Urine Urobilinogen 2.0H, Urine Leukocyte Esterase NEGATIVE, Urine WBC (Auto) 1, Urine RBC (Auto) 3, Urine Hyaline Casts (Auto) 0, Urine Bacteria (Auto) NEGATIVE, Urine Squamous Epithelial Cells 0, Urine Mucus (Auto) SMALL, Urine Sperm (Auto) 07/16/19 06:45: Urine Random Creatinine 245.0, Urine Random Sodium 153 07/16/19 11:21: Nucleated Red Blood Cells % (auto) 0.0 07/16/19 11:22: Anion Gap 6L, Glomerular Filtration Rate 39.6L, Calcium Level 8.3L 07/16/19 13:54: Magnesium Level 2.4 CBC/BMP Laboratory Tests 07/15/19 21:38 07/16/19 11:21 07/16/19 11:22 07/16/19 13:54 Microbiology Microbiology 07/16/19 Urine Culture, Received Pending 07/15/19 Blood Culture, Received Pending 07/15/19 Blood Culture, Received Pending AMINAH PERKINS D.O. Jul 16, 2019 19:06
[2019-07-16] MEDS ORDERED: PERCOCET 5MG/325MG TAB As Ordered ONE (19:37)
[2019-07-16] MEDS: LR 1,000 ML IV SCH (20:03)
--- NOTE | 2019-07-16 20:23 | ECGEPIP ---
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
[2019-07-17] VITALS (12 sets, daily range): BP systolic 88–150; BP diastolic 48–90
[2019-07-17] MEDS ORDERED: LR 500 ML IV ONE (00:30)
[2019-07-17] MEDS: HEPARIN SOD (PORCINE) 5000 UNITS/ML VIAL SC SCH ×3 (05:07→21:17)
[2019-07-17 06:01] LABS: HEMATOCRIT 38.7 % (42.0-52.0); HEMOGLOBIN 12.7 g/dl (13.5-17.5); MEAN CORPUSCULAR HEMOGLOBIN 32.6 pg (27.0-33.0); MEAN CORPUSCULAR HGB CONC 32.8 g/dl (32.0-36.5); MEAN CORPUSCULAR VOLUME 99.5 fl (80.0-96.0); PLATELET COUNT, AUTOMATED 214 10^3/uL (150-450); RED BLOOD COUNT 3.89 10^6/uL (4.30-6.10); WHITE BLOOD COUNT 10.4 10^3/uL (4.0-10.0)
[2019-07-17 06:15] LABS: BLOOD UREA NITROGEN 19 MG/DL (7-18); CALCIUM LEVEL 8.3 MG/DL (8.8-10.2); CARBON DIOXIDE LEVEL 24 MEQ/L (21-32); CHLORIDE LEVEL 110 MEQ/L (98-107); CREATININE FOR GFR 1.29 MG/DL (0.70-1.30); GLOMERULAR FILTRATION RATE > 60.0 (>49); GLUCOSE, FASTING 99 MG/DL (70-100); MAGNESIUM LEVEL 2.4 MG/DL (1.8-2.4); POTASSIUM SERUM 4.3 MEQ/L (3.5-5.1); SODIUM LEVEL 140 MEQ/L (136-145)
[2019-07-17] MEDS: LITHIUM CARBONATE 300 MG CAP PO SCH (08:48)
[2019-07-17] MEDS: QUEtiapine FUMARATE 100 MG TAB PO SCH ×2 (08:48→21:18)
[2019-07-17] MEDS: TAMSULOSIN 0.4 MG CAP PO SCH (08:48)
[2019-07-17] MEDS: LR 1,000 ML IV SCH (10:58)
--- NOTE | 2019-07-17 13:43 | IPNPDOC ---
Subjective Review oF Systems Chief Complaint The patient is a 59-year-old male admitted with a reason for visit of Acute Renal Failure,Pyelonephritis,Ureterilithiasi. General: Reports: Normal Appetite; Denies: ROS Unobtainable, Chills, Night Sweats, Fatigue, Malaise, Other Symptoms Constitutional: Denies: Fever, Chills, Sweats, Weakness, Malaise Eyes: Denies: Pain, Vision change ENT: Denies: Head Aches, Sore Throat, Epistaxis Skin: Denies: Rash, Lesions, Breakdown, Nail Changes Pulmonary: Denies: Dyspnea, Cough Cardiovascular: Denies Chest Pain, Denies Palpitations Gastrointestinal: Denies: Nausea, Vomiting, Abdominal Pain Genitourinary: Denies: Dysuria, Frequency, Incontinence, Hematuria Objective Physical Examination General Exam: Alert, No Acute Distress Eye Exam: PERRLA, Conjunctiva & lids normal, EOMI; No: Sclera icteric ENT EXAM: Atraumatic, Mucous membr. moist/pink, Pharynx Normal Neck Exam: Supple; No: JVD, thyromegaly Heart Exam: Positive: Rate Normal, Regular Rhythm, Normal S1, Normal S2; Negative: Murmurs, Rubs ABDOMEN EXAM: Normal bowel sounds, Soft; No: Tenderness, Hepatospenomegaly Male Exam: Normal Genital Exam Vital Signs/I&O Vital Signs Date Time Temp Pulse Resp B/P (MAP) Pulse Ox O2 Delivery O2 Flow Rate FiO2 07/17/19 13:00 98.7 75 19 128/78 (95) 96 Room Air 07/17/19 05:00 0.5 I&O- Last 24 Hours up to 6 AM 07/17/19 05:59 Intake Total 1445 ml Output Total 1075 ml Balance 370 ml Laboratory Data Labs 24H Laboratory Tests 2 07/16/19 13:54: Magnesium Level 2.4 07/16/19 18:05: 07/17/19 05:19: Magnesium Level 2.4, Nucleated Red Blood Cells % (auto) 0.0, Anion Gap 6L, Glomerular Filtration Rate > 60.0, Calcium Level 8.3L CBC/BMP Laboratory Tests 07/16/19 13:54 07/17/19 05:19 Microbiology Microbiology 07/16/19 Urine Culture - Final, Complete 07/15/19 Blood Culture - Preliminary, Resulted No growth after 24 hours . All specim... 07/15/19 Blood Culture - Preliminary, Resulted No growth after 24 hours . All specim... Assessment/Plan Date Seen The patient was seen on 07/17/19. Plan/VTE VTE Prophylaxis Ordered?: No VTE Exclusion Mechanical Proph: Low Risk for VTE Plan Patient is comfortable and voiding well. The urine is slightly red, but when the patient's hydration improves. I discussed with him the findings at time of surgery and the need to have the ureteral stent removed in about 2 weeks with hydration at home and return to the office in 2 weeks for stent removal. MARYAM LA MD Jul 17, 2019 13:43
--- NOTE | 2019-07-17 14:06 | RO ---
DATE OF SURGERY: 07/16/2019 PREOPERATIVE DIAGNOSIS: Distal left ureteral calculus with hydronephrosis. POSTOPERATIVE DIAGNOSIS: Distal left ureteral calculus with hydronephrosis. PROCEDURE: Cystoscopy with left retrograde pyelogram, ureteroscopic laser lithotripsy and stent insertion. SURGEON: Dr. Joe Ortiz PARTS ADMINISTRATOR: ANESTHESIA: General. INDICATION FOR OPERATION: This is a 59-year-old white male who has had left flank pain from a distal ureteral calculus for 4 days now. He is brought to the operating room for stone removal. DESCRIPTION OF OPERATION: The patient was anesthetized with general anesthesia after being placed on the table in a supine position. He was then placed in lithotomy position, prepped with Betadine paint and draped in an aseptic manner. Time-out was then performed. A 22-[place] cystoscope was inserted into the meatus and advanced under direct vision with a 30 degree lens to the bladder. In the bladder, the left ureteral orifice was seen to have no efflux. The right ureteral orifice was in the normal anatomic position and effluxed normally. The bladder mucosa was normal. The left ureteral orifice was then catheterized with a 5-[place] Pollack catheter and retrograde injection of [place] showed the patient had an obstructing stone in the distal ureter. A wire guide was then passed around this stone and the cystoscope was exchanged for the semi-rigid ureteroscope. This was advanced along the side the safety wire and along with the aid of a working wire was passed up to the stone. The laser lithotripsy was then used to break the stone into small fragments most of which were removed. The smaller ones were left to pass spontaneously. The ureteroscope was then exchanged for the cystoscope and a 5-[place] double J stent was passed over the wire and curled well in the renal pelvis and in the bladder when the wire was removed. The bladder was drained. After removing the stone fragments from bladder, cystoscope was removed and the patient was awakened and sent to recovery room in stable condition having tolerated the procedure well.
--- NOTE | 2019-07-17 19:50 | DS.PDOC ---
Discharge Summary General Date of Admission Jul 16, 2019 at 01:26 Date of Discharge 07/18/19 Attending Physician: SOPHIA MATT MD Specialist/Consultants Involve: MARYAM ORTIZ MD Specialist/Consultants Involve Dr. Chang Covarrubias M.D. Urology Discharge Summary PROCEDURES PERFORMED DURING STAY: Cystoscopy, left retrograde pyelogram, right ureteroscopic laser lithotripsy and stent insertion (performed on 07/16) ADMITTING DIAGNOSES: Distal left ureteral calculus with obstruction, moderate ureterohydronephrosis and surrounding fat stranding Acute renal failure Bipolar disorder Anxiety disorder Tobacco abuse DISCHARGE DIAGNOSES: Left ureteral obstructive stone with moderate hydronephrosis and fat stranding Bipolar disorder Anxiety disorder Tobacco abuse COMPLICATIONS/CHIEF COMPLAINT: Acute Renal Failure, Pyelonephritis, Ureterilithiasis HISTORY OF PRESENT ILLNESS & HOSPITAL COURSE Vivien is a 59-year-old male with history of current tobacco use, bipolar disorder, anxiety disorder and chronic lumbago who presented to the ED with left lower quadrant abdominal and left suprapubic pain with accompanying nausea and vomiting that had been affecting him for a few days. He originally presented to urgent care and the [facility] ED before the presentation that led to hospital admission. At his first ED presentation, he was diagnosed with a left ureteral calculus and discharged home with a prescription for [place] and told to follow-up outpatient with his PCP. He continued to experience significant abdominal and inguinal pain and was unable to take the [place] due to persistent vomiting. It was at this point when he presented for a second time to the [facility] ED. On the second ED presentation, he was given morphine, Zofran, IV fluids, and started on ceftriaxone. Labs showed acute renal failure with leukocytosis. Imaging showed a 5 mm obstructive calculus in the distal left ureter with moderate hydroureteronephrosis, as well as lia-nephritic and periuretero stranding. The emergency department then contacted Dr. Covarrubias (urology). Dr. Lovelace recommended hospital admission. On the overnight of , agent received a straight urinary catheterization. On the morning of 07/16, his white count dropped to within normal range. He was made NPO in preparation of urologic surgery to remove the calculus, reestablish flow and alleviate the hydronephrosis. Patient also had hypokalemia on morning 07/16. Labs and received subsequent supplementation. Urine cultures were taken, a preoperative dose of Cefazolin was administered, and Flomax was given as well. He underwent cystoscopy, left retrograde pyelogram and ureter lithotripsy with implementation of ureteral stent performed by Dr. Ortiz (urology) on 07/16. On postop day 1, he had a significant reduction in pain and was no longer feeling nauseated. He had a couple of postprocedural voids of hematuria that steadily improved as patient increased hydration. Postop labs showed resolution of the acute renal failure and his serum potassium returned to normal limits. Urine culture and blood cultures showed no growth. He was then deemed safe and ready for discharge with instructions to follow-up with PCP and neurology as outpatient. DISCHARGE MEDICATIONS: Please see below. ALLERGIES: Please see below. PHYSICAL EXAMINATION ON DISCHARGE: VITAL SIGNS: Please see below. GENERAL: Pleasant and interactive male who appears stated age. He does not appear to be in acute distress of any kind. Alert and oriented 3. Well-developed and well-nourished. HEENT: Normocephalic, atraumatic. Anicteric and non-injected sclera. Trachea is midline. CARDIOVASCULAR: Regular rate and regular rhythm. S1, S2 auscultated. No murmurs or rubs appreciated. No JVD. RESPIRATORY: Clear to auscultation bilaterally with no wheezes, crackles, or rhonchi appreciated. Adequate tidal volume and symmetric chest expansion. Speaking in full sentences and breathing on room air. ABDOMINAL: Soft, nondistended, and mild tenderness of left lower abdominal q uadrant. There is no rigidity. No palpable masses are appreciated. Normoactive bowel sounds present. EXTREMITIES: No lower extremity edema. 2+ radial and posterior tibial pulses bilaterally. NEUROLOGICAL: Awake, alert and oriented 3. No focal neurological deficits appreciated. Responding appropriately to questions and commands. PSYCHOLOGICAL: Mood and affect appear appropriate LABORATORY DATA: Please see below. IMAGING: CT abdomen and pelvis without contrast, 07/15/19: 1. There is a grade 1 anterior spondylolisthesis of L5 on S1 secondary to bilateral L5 spondylolysis. Spinal stenosis at L3-L4 and L4-L5 as described above. 2. There is a 5 mm. obstructive ureteral calculus located distal left ureter resulting in moderate proximal hydroureteronephrosis. There is moderate periureteral and perinephric stranding. No urinoma demonstrated. There has been no significant migration of the calculus distally in comparison to the prior study of 07/14/2019. 3. There is bilateral adrenal hyperplasia. 4. Mild prostatic hyperplasia. Retrograde pyelogram, 07/16/19: Findings: Two images from C-arm fluoroscopy provided to Dr. Ortiz of the urology division are reviewed. Initial one shows the cystoscope and contrast extending from the lower ureter into the upper ureter. The kidney and collecting system are excluded from the field and there appears to be a filling defect in the distal ureter, several centimeters from the UVJ. The ureter above the filling defect is dilated. The second image shows a pigtail catheter coiled proximally in the renal pelvis. There is no contrast in this image. There are no other images provided. Fluoroscopy time: 24 seconds. PROGNOSIS: Good ACTIVITY: As tolerated DIET: As tolerated and continue to maintain adequate hydration DISCHARGE INSTRUCTIONS & ITEMS TO FOLLOWUP ON ON OUTPATIENT: -Patient is to follow-up with his primary care physician in the next 3-5 days -Patient is to follow-up with urology as outpatient for removal of ureteral stent in 2 weeks -Should patient experience an acute worsening of symptoms, that necessitated this presentation, or experience acute medical emergency of any kind, he is to return to the emergency department DISCHARGE CONDITION: Stable TIME SPENT ON DISCHARGE: Total time spent on discharge including coordination of care, review of chart documentation, and actual patient contact was greater than 35 minutes Vital Signs/I&Os Vital Signs Date Time Temp Pulse Resp B/P (MAP) Pulse Ox O2 Delivery O2 Flow Rate FiO2 07/17/19 17:00 98.9 71 18 126/76 (93) 95 Room Air 07/17/19 05:00 0.5 I&O- Last 24 Hours up to 6 AM 07/17/19 06:00 Intake Total 2110 ml Output Total 1075 ml Balance 1035 ml Laboratory Data Labs 24H Laboratory Tests 2 07/17/19 05:19: Nucleated Red Blood Cells % (auto) 0.0, Anion Gap 6L, Glomerular Filtration Rate > 60.0, Calcium Level 8.3L, Magnesium Level 2.4 CBC/BMP Laboratory Tests 07/17/19 05:19 Microbiology Microbiology 07/16/19 Urine Culture - Final, Complete 07/15/19 Blood Culture - Preliminary, Resulted No growth after 24 hours . All specim... 07/15/19 Blood Culture - Preliminary, Resulted No growth after 24 hours . All specim... Discharge Medications Scheduled [place] Carbonate (T[place] Carbonate) 300 Mg Tablet, 300 MG PO DAILY, (Reported) Quetiapine Fumarate (Quetiapine Fumarate) 100 Mg Tablet, 100 MG PO DAILY, (Reported) Quetiapine Fumarate (Quetiapine Fumarate) 100 Mg Tablet, 200 MG PO QHS, (Reported) Tamsulosin HCl (Flomax) 0.4 Mg Capsule, 0.4 MG PO DAILY, (Reported) once daily 1/2 hour following the same meal each day Scheduled PRN Alprazolam (Alprazolam) 1 Mg Tablet, 1 MG PO QID PRN for ANXIETY, (Reported) Hydrocodone/Acetaminophen (Hydrocodone-Acetamin 10-325 mg) 1 Each Tablet, 10-325 MG PO Q6HP PRN for PAIN OR DYSPNEA, (Reported) Ondansetron HCl (Ondansetron HCl) 4 Mg Tablet, 4 MG PO Q6H PRN for NAUSEA OR VOMITING, (Reported) Allergies Coded Allergies: No Known Allergies (Unverified , 10/15/17) AMINAH PERKINS D.O. Jul 17, 2019 19:50
[2019-07-17] MEDS: SENOKOT S TAB PO SCH (21:17)
[2019-07-18] MEDS: HEPARIN SOD (PORCINE) 5000 UNITS/ML VIAL SC SCH ×2 (05:11→14:00)
[2019-07-18 06:00] VITALS: BP 127/84
[2019-07-18 08:12] LABS: HEMATOCRIT 40.2 % (42.0-52.0); HEMOGLOBIN 13.6 g/dl (13.5-17.5); MEAN CORPUSCULAR HEMOGLOBIN 33.1 pg (27.0-33.0); MEAN CORPUSCULAR HGB CONC 33.8 g/dl (32.0-36.5); MEAN CORPUSCULAR VOLUME 97.8 fl (80.0-96.0); PLATELET COUNT, AUTOMATED 245 10^3/uL (150-450); RED BLOOD COUNT 4.11 10^6/uL (4.30-6.10); WHITE BLOOD COUNT 9.1 10^3/uL (4.0-10.0)
[2019-07-18 08:26] LABS: BLOOD UREA NITROGEN 16 MG/DL (7-18); CALCIUM LEVEL 8.7 MG/DL (8.8-10.2); CARBON DIOXIDE LEVEL 27 MEQ/L (21-32); CHLORIDE LEVEL 109 MEQ/L (98-107); GLOMERULAR FILTRATION RATE > 60.0 (>49); GLUCOSE, FASTING 93 MG/DL (70-100); POTASSIUM SERUM 3.8 MEQ/L (3.5-5.1); SODIUM LEVEL 141 MEQ/L (136-145)
--- NOTE | 2019-07-18 09:08 | IPNPDOC ---
Text Note Date of Service The patient was seen on 07/18/19. NOTE Discharge Addendum: Patient seen and examined at bedside. No medical complaints. Labs reviewed. Patient discharged home today with outpatient follow up. No changes to discharge instructions. Please refer to discharge summary from 07/17/19 for full details regarding hospital stay and discharge instructions. VS,Fishbone, I+O VS, Fishbone, I+O Laboratory Tests 07/18/19 07:36 Vital Signs Date Time Temp Pulse Resp B/P (MAP) Pulse Ox O2 Delivery O2 Flow Rate FiO2 07/18/19 06:00 98.0 62 19 127/84 (98) 92 Room Air 07/17/19 05:00 0.5 I&O- Last 24 Hours up to 6 AM 07/18/19 06:00 Intake Total 1490 ml Output Total 2455 ml Balance -965 ml SOPIHA MATT MD Jul 18, 2019 09:08
[2019-07-18] MEDS: SENOKOT S TAB PO SCH (09:23)
[2019-07-18] MEDS: TAMSULOSIN 0.4 MG CAP PO SCH (09:23)
[2019-07-18] MEDS: LITHIUM CARBONATE 300 MG CAP PO SCH (09:24)
[2019-07-18] MEDS: QUEtiapine FUMARATE 100 MG TAB PO SCH (09:24)
[2019-07-18] MEDS ORDERED: NS 1,000 ML IV SCH (10:15)
[2019-07-18] MEDS: LR 1,000 ML IV SCH (14:22)
--- NOTE | 2019-07-18 14:26 | IPNPDOC ---
Subjective Review oF Systems Chief Complaint The patient is a 59-year-old male admitted with a reason for visit of Acute Renal Failure,Pyelonephritis,Ureterilithiasi. Events since Last Encounter Patient is voiding well but not drinking much. The urine is a burgundy color. He has no complaints, difficulty, discomfort, or other issues. Objective Physical Examination General Exam: Alert, No Acute Distress Eye Exam: PERRLA, Conjunctiva & lids normal, EOMI; No: Sclera icteric ENT EXAM: Atraumatic, Mucous membr. moist/pink, Pharynx Normal Neck Exam: Supple; No: JVD, thyromegaly Heart Exam: Positive: Rate Normal, Regular Rhythm, Normal S1, Normal S2; Negative: Murmurs, Rubs ABDOMEN EXAM: Normal bowel sounds, Soft; No: Tenderness, Hepatospenomegaly Male Exam: Normal Genital Exam Other physical findings Awake, alert, oriented and in no acute distress Vital Signs/I&O Vital Signs Date Time Temp Pulse Resp B/P (MAP) Pulse Ox O2 Delivery O2 Flow Rate FiO2 07/18/19 06:00 98.0 62 19 127/84 (98) 92 Room Air 07/17/19 05:00 0.5 I&O- Last 24 Hours up to 6 AM 07/18/19 06:00 Intake Total 1490 ml Output Total 2455 ml Balance -965 ml Laboratory Data Labs 24H Laboratory Tests 2 07/18/19 07:36: Nucleated Red Blood Cells % (auto) 0.0, Anion Gap 5L, Glomerular Filtration Rate > 60.0, Calcium Level 8.7L CBC/BMP Laboratory Tests 07/18/19 07:36 Microbiology Microbiology 07/16/19 Urine Culture - Final, Complete 07/15/19 Blood Culture - Preliminary, Resulted No Growth after 48 hours. All Specime... 07/15/19 Blood Culture - Preliminary, Resulted No Growth after 48 hours. All Specime... Assessment/Plan Date Seen The patient was seen on 07/18/19. Plan/VTE VTE Prophylaxis Ordered?: No VTE Exclusion Mechanical Proph: Low Risk for VTE Plan Patient's urine cleared significantly after hydration. He therefore may be discharged home. He will follow-up in the clinic in 2 weeks for ureteral stent removal. I emphasized to him the importance of removing the stent on time. MARYAM LA MD Jul 18, 2019 14:26
== END 2019-07-18 15:36 | disposition home or self-care (01) | DRG 446 ==
LOC: M ED 21:10 → M ED INP 07-16 01:26 → ENRESERVTM 07-16 01:54 → ENRESERVDT 07-16 01:54 → M MSPAV 07-16 03:09
PROVIDERS: ADMIT Internal Medicine; ATTEND Internal Medicine
PROC: 0T778DZ Dilation of Left Ureter with Intraluminal Device, Via Natural or Artificial Opening Endoscopic (ICD-10-PCS; 2019-07-16)
PROC: 0TC78ZZ Extirpation of Matter from Left Ureter, Via Natural or Artificial Opening Endoscopic (ICD-10-PCS; principal; 2019-07-16 17:30)
DX: N13.1 Hydronephrosis with ureteral stricture, not elsewhere classified (principal); N17.9 Acute kidney failure, unspecified; I10 Essential (primary) hypertension; F31.9 Bipolar disorder, unspecified; F41.9 Anxiety disorder, unspecified; F17.210 Nicotine dependence, cigarettes, uncomplicated; M54.5 Low back pain; R11.2 Nausea with vomiting, unspecified; E87.6 Hypokalemia; Z79.899 Other long term (current) drug therapy

== ENCOUNTER → 2019-10-11 | Outpatient (CLI) | payer OTHER ==
[~2019-10-11] MED LIST changes: +ONDA-83 PO; +QUET100T2 PO; -QUET1TAB8 PO
--- NOTE | 2019-10-13 04:54 | ECWPNPC ---
PATIENT NAME: ELVA DUTTON : 1960 GENDER: MALE VISIT DATE: 10/11/2019 DISCHARGE DATE: 10/11/19 1439 VISIT LOCKED DATE TIME: PHYSICIAN: NAOMI MORRIS RESOURCE: NAOMI MORRIS REASON FOR APPOINTMENT 1. [phone]/[phone] STRANDED IN [facility] DOES NOT HAVE ZOOM BUT WOULD LIKE PHONE VISIT HISTORY OF PRESENT ILLNESS HISTORY OF PRESENT ILLNESS: PHONE CALL TO PATIENT AND HE HAS AGREED TO DO A TELEPHONE VISIT TODAY. THIS IS A FOLLOW-UP OF CHRONIC LOW BACK PAIN AND GENERALIZED JOINT PAIN. RATING PAIN LEVEL A 7/10 VAS. FINDS CURRENT CHRONIC PAIN MEDICATION SOMEWHAT EFFECTIVE AT REDUCING PAIN AND KEEPING HIM COMFORTABLE. DENIES ADVERSE SIDE EFFECTS. 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 PAIN THE PATIENT DESCRIBES THE PAIN... FALL RISK SCREENING: SCREENING :NO FALLS REPORTED IN THE LAST YEAR CURRENT MEDICATIONS TAKING REXULTI 0.25 MG TABLET 1 TABLET ORALLY ONCE A DAY, NOTES: UNSURE OF DOSE TAKING LITHIUM CARBONATE - POWDER ONCE A DAY TAKING VIIBRYD 10 MG TABLET 1 TAB ORALLY DAILY TAKING ZALEPLON 10 MG CAPSULE 1 CAPSULE AT BEDTIME NEEDED ORALLY ONCE A DAY TAKING DEXTROAMPHETAMINE SULFATE 20 MG TABLET 1 TABLET ORALLY THREE TIMES A DAY, NOTES: UNSURE OF DOSE/FREQUENCY TAKING NORCO 10-325 MG TABLET 1 TABLET NEEDED ORALLY EVERY 6 HRS PRN MDD4 TAKING ALPRAZOLAM 1 MG TABLET 1 TABLET ORALLY TWICE A DAY, NOTES: UNSURE OF DOSE NOT-TAKING CIPROFLOXACIN HCL 500 MG TABLET 1 TABLET 1 HOUR PRIOR TO YOUR CYSTOSCOPY ORALLY ONCE NOT-TAKING HYDROCODONE-ACETAMINOPHEN 10-325 MG TABLET 1 TABLET NEEDED ORALLY Q8H PRN MDD3, NOTES: DUPLICATE NOT-TAKING ADDERALL 20 MG TABLET 1 TABLET ORALLY TWICE A DAY NOT-TAKING CLONAZEPAM 1 MG TABLET 1 TABLET ORALLY ONCE A DAY NOT-TAKING KETOROLAC TROMETHAMINE 10 MG TABLET 1 TABLET WITH FOOD OR MILK NEEDED ORALLY EVERY 6 HRS NOT-TAKING ZOFRAN 4 MG TABLET 1 TAB ORALLY TWICE A DAY NEEDED FOR NAUSEA NOT-TAKING TRAZODONE HCL 50 MG TABLET ORALLY NOT-TAKING PAXIL 20 MG TABLET 1 TABLET IN THE MORNING ORALLY ONCE A DAY MEDICATION LIST REVIEWED AND RECONCILED WITH THE PATIENT PAST MEDICAL HISTORY DEPRESSION/ANXIETY - CELEXA AND ZOLOFT IN THE PAST, CURRENTLY ON TRAZODONE ONLY HS OSTEOARTHRITIS - LUMBAGO HYPERTENSION DYSTHYMIC ALCOHOL ABUSE LOW BACK PAIN ALLERGIES N.K.D.A. SURGICAL HISTORY CYST REMOVAL RIGHT THUMB REPAIR OF LACERATION LASER LITHO CYSTO STENT REMOVAL 07/30/2019 FAMILY HISTORY FATHER: 78 YRS, COLON CANCER, [place] IN LATE 50'S, DIAGNOSED WITH UNSPECIFIED HEART DISEASE MOTHER: 74 YRS, KIDNEY DISEASE SOCIAL HISTORY GENERAL: TOBACCO USE ARE YOU A:CURRENT SMOKER ARE YOU INTERESTED IN QUITTING?THINKING ABOUT QUITTING TRYING TO CUT BACK. PREVIOUS QUIT ATTEMPTS?YES, MORE THAN 6 MONTHS AGO. COUNSELED THE PATIENT ON SMOKING CESSATION, EDUCATION RADQUJUN26/20/2020 HOW MANY CIGARETTES A DAY DO YOU SMOKE?11-20 HOW SOON AFTER YOU WAKE UP DO YOU SMOKE YOUR FIRST CIGARETTE?6-30 MIN HOW OFTEN DO YOU SMOKE CIGARETTES?EVERY DAY PATIENT COUNSELED ON THE DANGERS OF TOBACCO USE AND URGED TO QUIT:10/11/2019 LATEX QUESTIONNAIRE LATEX ALLERGY : HAVE YOU EVER DEVELOPED ANY TYPE OF REACTION AFTER HANDLING LATEX PRODUCTS SUCH RUBBER GLOVES, CONDOMS, DIAPHRAGMS, BALLOONS, SOCKS, OR UNDERWEAR?NO LATEX ALLERGY : HAVE YOU EVER DEVELOPED ANY TYPE OF REACTION DURING OR AFTER DENTAL APPOINTMENT, VAGINAL/RECTAL EXAMINATION, SURGICAL PROCEDURE, OR ANY OTHER EXPOSURE?NO LATEX RISK : HAVE YOU EVER HAD ANY DIFFICULTY BREATHING OR HIVES AFTER EATING OR HANDLING ANY FRUITS, OR VEGETABLES; SUCH KIWI, BANANAS, STONE FRUITS, OR CHESTNUTSNO LATEX RISK : DO YOU HAVE A PREVIOUS PERSONAL HISTORY OF MORE THAN NINE SURGERIES, SPINA BIFIDA, OR REPEATED CATHERIZATIONS? NO LATEX RISK : ARE YOU FREQUENTLY EXPOSED TO LATEX PRODUCTS IN YOUR OCCUPATION?NO DATE ASKED : 10/11/2019 ALCOHOL SCREENING DID YOU HAVE A DRINK CONTAINING ALCOHOL IN THE PAST YEAR?YES HOW OFTEN DID YOU HAVE A DRINK CONTAINING ALCOHOL IN THE PAST YEAR?MONTHLY OR LESS (1 POINT) HOW MANY DRINKS DID YOU HAVE ON A TYPICAL DAY WHEN YOU WERE DRINKING IN THE PAST YEAR?1 OR 2 (0 POINTS) HOW OFTEN DID YOU HAVE SIX OR MORE DRINKS ON ONE OCCASION IN THE PAST YEAR?NEVER (0 POINTS) POINTS1 INTERPRETATIONNEGATIVE RECREATIONAL DRUG USE DRUG USE?NO CAFFEINE CAFFEINE USE?NO YAZIDISM [id number] JAIN LANGUAGE LANGUAGES SPOKEN:BOLIVIAN LEARNING BARRIERS / SPECIAL NEEDS BARRIERS TO LEARNING?NO HEARING IMPAIRED?NO VISION IMPAIRED?YES COGNITIVELY IMPAIRED?NO :CORRECTIVE LENSES READING GLASSES READINESS TO LEARN?YES LEARNING PREFERENCES?NO LEARNING CAPABILITIES PRESENT?YES EMOTIONAL BARRIERS?NO SPECIAL DEVICES?NO TANKAGE SUPERVISOR NEEDED?NO DOMESTIC VIOLENCE DO YOU FEEL SAFE IN YOUR ENVIRONMENT?YES OCCUPATION: [employer]. DIET: REGULAR. 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 NEW PATIENT PAIN DIARY TODAY'S VISITNOTES 10/11/2019 PATIENT DESCRIBES PAIN :ACHING, HAVE IT ALL THE TIME, SHARP, SORE FROM 0-10, WHAT LEVEL IS YOUR PAIN TODAY?8 PAIN CLINIC PFS, CLERGY, PUBLIC HEALTH REFERRALS PFS REFERRAL NEEDED?NO CLERGY REFERRAL NEEDED?NO PUBLIC HEALTH REFERRAL NEEDED?NO WAS THE PROVIDER NOTIFIED OF ANY PERTINENT INFO? N/A HAS THE PATIENT BEEN EDUCATED REGARDING HIS/HER PLAN OF CARE?YES HAS THE PATIENT BEEN EDUCATED REGARDING PAIN, THE RISK FOR PAIN, THE IMPORTANCE OF EFFECTIVE PAIN MANAGEMENT, AND THE PAIN ASSESSMENT PROCESS?YES ADVANCE DIRECTIVE ADVANCE DIRECTIVE DISCUSSED WITH PATIENT:YES HCP - [facility] ([facility] ([facility]) HOSPITALIZATION/MAJOR DIAGNOSTIC PROCEDURE [facility]2017 REVIEW OF SYSTEMS REVIEWED BY: PROVIDER: NAOMI VALDEZ . CONSTITUTIONAL: ANY CHANGE IN YOUR MEDICAL CONDITION? NO . CHILLS NO . FEVER NO . INFECTION: DO YOU HAVE NEW INFECTIONS? NO . DO YOU HAVE HISTORY OF MRSA? NO . MUSCULOSKELETAL: ANY NEW PATTERNS OF PAIN OR NUMBNESS? NO . GASTROENTEROLOGY: ANY NEW CHANGE IN BOWEL CONTROL? NO . GENITOURINARY: ANY NEW CHANGE IN BLADDER CONTROL? NO . IS THERE A CHANCE YOU COULD BE ? NO . HEMATOLOGY/LYMPH: DO YOU TAKE ANY BLOOD THINNERS? (FOR EXAMPLE- COUMADIN, PLAVIX, AGGRENOX, PLATEL, PRADAXA, OR XARELTO) NO . WHEN WAS YOUR LAST DOSE? DATE: TIME: . NEUROLOGY: HAVE YOU FALLEN IN THE PAST 12 MONTHS? YES, STATES HE SLIPPED RECENTLY, NO MAJOR INJURIES, NO ED VISIT . ANY NEW EXTREMITY NUMBNESS OR WEAKNESS? NO . CARDIOLOGY: DO YOU HAVE A PACEMAKER OR DEFIBRILLATOR? NO . RESPIRATORY: HAVE YOU BEEN SICK IN THE PAST WEEK? NO . FEVER NO . FLU LIKE SYMPTOMS? NO . COUGH NO . INTEGUMENTARY: DO YOU HAVE ANY RASHES OR OPEN SORES? NO . ALLERGIC/IMMUNO: ARE YOU ALLERGIC TO IV DYE? NO . ANY NEW ALLERGIES? NO . PSYCHIATRIC: DO YOU HAVE THOUGHTS OF HURTING YOURSELF OR SOMEONE ELSE? NO . ARE YOU ABUSED, NEGLECTED, OR IN AN UNSAFE ENVIRONMENT? NO . ENDOCRINOLOGY: ARE YOU DIABETIC? NO . OTHER: DO YOU NEED ANY PRESCRIPTIONS? YES . IF YES, PLEASE LIST: ____HYDROCODONE . ANY NEW PROBLEMS WITH YOUR MEDICATIONS? NO . WHEN DID YOU LAST EAT? ____ . WHEN DID YOU LAST DRINK? ____ . WHAT DID YOU LAST DRINK? ____ . NAME OF PERSON DRIVING YOU HOME? ____ . DO YOU HAVE ANY OTHER QUESTIONS OR CONCERNS NO . ASSESSMENTS LOW BACK PAIN - M54.5 (PRIMARY) CHRONIC PRESCRIPTION OPIATE USE - Z79.891 TREATMENT LOW BACK PAIN REFILL NORCO TABLET, 10-325 MG, 1 TABLET NEEDED, ORALLY, EVERY 6 HRS PRN MDD4, 30 DAYS, 120, REFILLS 0 NOTES: ISTOP REGISTRY REVIEWED AND DEMONSTRATES COMPLLIANCE. RECENT URINE TOXICOLOGY REVIEWED. NO UNAUTHORIZED MEDICATIONS. NO ILLICIT SUBSTANCES AND PRESCRIBED MEDICATIONS WERE PRESENT. PATIENT IS ADVISED TO CONTINUE CURRENT CHRONIC PAIN MEDICATIONS. HE WILL CONTACT US WHEN HE RETURNS FROM [place] FOR FOLLOW-UP EXAM IN THE CLINIC. TOTAL TIME SPENT DURING TELEPHONE VISIT TODAY WAS APPROXIMATELY 11 MINUTES. OTHERS NOTES: NO VITALS OBTAINED DUE TO PHONE VISIT. DISPOSITION & COMMUNICATION FOLLOW UP PATIENT WILL CALL ELECTRONICALLY SIGNED BY COURTNEY AMADO ON 10/12/2019 AT 08:36 AM EDT DISCLAIMER : THIS IS A VISIT SUMMARY EXTRACTED FROM THE [employer] CHART. IT IS NOT A COPY OF THE [employer] PROGRESS NOTE. CAROLE
== END ==
LOC: M PAIN 09:45
PROVIDERS: ATTEND Nurse Practitioner Family
DX: M54.5 Low back pain (principal); I10 Essential (primary) hypertension; F17.210 Nicotine dependence, cigarettes, uncomplicated; Z79.891 Long term (current) use of opiate analgesic; Z79.899 Other long term (current) drug therapy

== ENCOUNTER → 2020-01-06 | Outpatient (CLI) | payer OTHER ==
--- NOTE | 2020-01-12 02:19 | ECWPNPC ---
PATIENT NAME: ELVA DUTTON : 1960 GENDER: MALE VISIT DATE: 01/06/2020 DISCHARGE DATE: 01/06/20 1458 VISIT LOCKED DATE TIME: PHYSICIAN: NAOMI MORRIS RESOURCE: NAOMI MORRIS REASON FOR APPOINTMENT 1. MED MANAGE HISTORY OF PRESENT ILLNESS GENERAL: -. FALL RISK SCREENING: SCREENING :NO FALLS REPORTED IN THE LAST YEAR PAIN SCREENING: PATIENT HAS A COMPLAINT OF ACUTE OR CHRONIC PAIN :YES LOCATION OF PAIN: LOW BACK, RIGHT SHOULDER INTENSITY OF PAIN (SCALE OF 1 TO 10):8 8-9 WHAT DOES YOUR PAIN FEEL LIKE:SORE, CONTINOUS, TENDER DURATION:CONTINOUS, CONSTANT PAIN IS INCREASED BY:ACTIVITIES, PROLONGED STANDING PAIN IS DECREASED BY:USE OF PAIN MEDICATIONS PAIN HAS INTERFERED WITH THE FOLLOWING:EMPLOYMENT, ENJOYMENT OF LIFE, MOOD PLAN/GOALS/TREATMENT/INTERVENTION/FOLLOW UP:SEE PLAN NURSING NOTE: -. PAIN CENTER INTAKE QUESTIONS: DO YOU HAVE A HISTORY OF MRSA? :NO DO YOU TAKE A BLOOD THINNERS? :NO DO YOU HAVE ANY BLEEDING DISORDERS? :NO ANY NEW NUMBNESS OR WEAKNESS IN YOUR LEGS OR ARMS? :YES RIGHT LEG BEHIND KNEE, REPORTS "BODY WORN OUT" ANY PACEMAKER,DEFIBRILLATOR, OR DORSAL COLUMN STIMULATOR? :NO DO YOU HAVE ANY RASHES OR OPEN SORES? :NO ARE YOU ALLERGIC TO IV DYE? :NO ARE YOU DIABETIC? :NO ANY NEW PROBLEMS WITH YOUR MEDICATIONS? :NO HAVE YOU RECEIVED A VACCINE IN THE PAST 30 DAYS? :NO DO YOU PLAN TO RECEIVE A VACCINE IN THE NEXT 21 DAYS? :NO DO YOU NEED ANY PRESCRIPTION? :YES HYDROCODONE 10/325MG DO YOU TAKE ANY IMMUNOSUPPRESSIVE MEDICATIONS? :YES REXULTI. IS THERE A CHANCE YOU COULD BE ? :NO ARE YOU BREAST FEEDING? 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 PAIN THE PATIENT DESCRIBES THE PAIN... CURRENT MEDICATIONS TAKING REXULTI 0.25 MG TABLET 1 TABLET ORALLY ONCE A DAY, NOTES: UNSURE OF DOSE TAKING LITHIUM CARBONATE 150 MG CAPSULE 1 CAPSULE ORALLY ONCE A DAY TAKING VIIBRYD 10 MG TABLET 1 TAB ORALLY DAILY TAKING ZALEPLON 10 MG CAPSULE 1 CAPSULE AT BEDTIME NEEDED ORALLY ONCE A DAY TAKING DEXTROAMPHETAMINE SULFATE 20 MG TABLET 1 TABLET ORALLY THREE TIMES A DAY, NOTES: UNSURE OF DOSE/FREQUENCY TAKING ALPRAZOLAM 1 MG TABLET 1 TABLET ORALLY TWICE A DAY, NOTES: UNSURE OF DOSE TAKING NORCO 10-325 MG TABLET 1 TABLET NEEDED ORALLY EVERY 6 HRS PRN MDD4 NOT-TAKING CIPROFLOXACIN HCL 500 MG TABLET 1 TABLET 1 HOUR PRIOR TO YOUR CYSTOSCOPY ORALLY ONCE NOT-TAKING HYDROCODONE-ACETAMINOPHEN 10-325 MG TABLET 1 TABLET NEEDED ORALLY Q8H PRN MDD3, NOTES: DUPLICATE NOT-TAKING ADDERALL 20 MG TABLET 1 TABLET ORALLY TWICE A DAY NOT-TAKING CLONAZEPAM 1 MG TABLET 1 TABLET ORALLY ONCE A DAY NOT-TAKING KETOROLAC TROMETHAMINE 10 MG TABLET 1 TABLET WITH FOOD OR MILK NEEDED ORALLY EVERY 6 HRS NOT-TAKING ZOFRAN 4 MG TABLET 1 TAB ORALLY TWICE A DAY NEEDED FOR NAUSEA NOT-TAKING TRAZODONE HCL 50 MG TABLET ORALLY NOT-TAKING PAXIL 20 MG TABLET 1 TABLET IN THE MORNING ORALLY ONCE A DAY MEDICATION LIST REVIEWED AND RECONCILED WITH THE PATIENT PAST MEDICAL HISTORY DEPRESSION/ANXIETY - CELEXA AND ZOLOFT IN THE PAST, CURRENTLY ON TRAZODONE ONLY QHS OSTEOARTHRITIS - LUMBAGO HYPERTENSION DYSTHYMIC ALCOHOL ABUSE LOW BACK PAIN ALLERGIES N.K.D.A. SURGICAL HISTORY CYST REMOVAL RIGHT THUMB REPAIR OF LACERATION LASER LITHO CYSTO STENT REMOVAL 07/30/2019 FAMILY HISTORY FATHER: 78 YRS, COLON CANCER, [place] IN LATE 50'S, DIAGNOSED WITH UNSPECIFIED HEART DISEASE MOTHER: 74 YRS, KIDNEY DISEASE SOCIAL HISTORY GENERAL: TOBACCO USE ARE YOU A:CURRENT SMOKER ARE YOU INTERESTED IN QUITTING?THINKING ABOUT QUITTING TRYING TO CUT BACK. PREVIOUS QUIT ATTEMPTS?YES, MORE THAN 6 MONTHS AGO. COUNSELED THE PATIENT ON SMOKING CESSATION, EDUCATION [id number]/16/2020 HOW MANY CIGARETTES A DAY DO YOU SMOKE?11-20 HOW SOON AFTER YOU WAKE UP DO YOU SMOKE YOUR FIRST CIGARETTE?6-30 MIN HOW OFTEN DO YOU SMOKE CIGARETTES?EVERY DAY PATIENT COUNSELED ON THE DANGERS OF TOBACCO USE AND URGED TO QUIT:01/06/2020 LATEX QUESTIONNAIRE LATEX ALLERGY : HAVE YOU EVER DEVELOPED ANY TYPE OF REACTION AFTER HANDLING LATEX PRODUCTS SUCH RUBBER GLOVES, CONDOMS, DIAPHRAGMS, BALLOONS, SOCKS, OR UNDERWEAR?NO LATEX ALLERGY : HAVE YOU EVER DEVELOPED ANY TYPE OF REACTION DURING OR AFTER DENTAL APPOINTMENT, VAGINAL/RECTAL EXAMINATION, SURGICAL PROCEDURE, OR ANY OTHER EXPOSURE?NO DATE ASKED : 10/11/2019 LATEX RISK : HAVE YOU EVER HAD ANY DIFFICULTY BREATHING OR HIVES AFTER EATING OR HANDLING ANY FRUITS, OR VEGETABLES; SUCH KIWI, BANANAS, STONE FRUITS, OR CHESTNUTSNO LATEX RISK : DO YOU HAVE A PREVIOUS PERSONAL HISTORY OF MORE THAN NINE SURGERIES, SPINA BIFIDA, OR REPEATED CATHERIZATIONS? NO LATEX RISK : ARE YOU FREQUENTLY EXPOSED TO LATEX PRODUCTS IN YOUR OCCUPATION?NO ALCOHOL SCREENING DID YOU HAVE A DRINK CONTAINING ALCOHOL IN THE PAST YEAR?YES HOW OFTEN DID YOU HAVE SIX OR MORE DRINKS ON ONE OCCASION IN THE PAST YEAR?NEVER (0 POINTS) HOW MANY DRINKS DID YOU HAVE ON A TYPICAL DAY WHEN YOU WERE DRINKING IN THE PAST YEAR?1 OR 2 (0 POINTS) HOW OFTEN DID YOU HAVE A DRINK CONTAINING ALCOHOL IN THE PAST YEAR?MONTHLY OR LESS (1 POINT) POINTS1 INTERPRETATIONNEGATIVE RECREATIONAL DRUG USE DRUG USE?NO CAFFEINE CAFFEINE USE?NO RESTORATIONISM [id number] JAIN LANGUAGE LANGUAGES SPOKEN:NICARAGUAN LEARNING BARRIERS / SPECIAL NEEDS BARRIERS TO LEARNING?NO HEARING IMPAIRED?NO VISION IMPAIRED?YES :CORRECTIVE LENSES READING GLASSES COGNITIVELY IMPAIRED?NO READINESS TO LEARN?YES LEARNING PREFERENCES?NO LEARNING CAPABILITIES PRESENT?YES EMOTIONAL BARRIERS?NO SPECIAL DEVICES?NO REMEDIAL PROJECT MANAGER NEEDED?NO DOMESTIC VIOLENCE DO YOU FEEL SAFE IN YOUR ENVIRONMENT?YES OCCUPATION: [employer]. DIET: REGULAR. 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 PAIN CLINIC PFS, CLERGY, PUBLIC HEALTH REFERRALS PFS REFERRAL NEEDED?NO CLERGY REFERRAL NEEDED?NO PUBLIC HEALTH REFERRAL NEEDED?NO WAS THE PROVIDER NOTIFIED OF ANY PERTINENT INFO? N/A HAS THE PATIENT BEEN EDUCATED REGARDING HIS/HER PLAN OF CARE?YES HAS THE PATIENT BEEN EDUCATED REGARDING PAIN, THE RISK FOR PAIN, THE IMPORTANCE OF EFFECTIVE PAIN MANAGEMENT, AND THE PAIN ASSESSMENT PROCESS?YES ADVANCE DIRECTIVE ADVANCE DIRECTIVE DISCUSSED WITH PATIENT:YES HCP - [facility] & [facility] ([facility] HOSPITALIZATION/MAJOR DIAGNOSTIC PROCEDURE [facility] INPATIENT ADMISSION 09/2017 REVIEW OF SYSTEMS CONSTITUTIONAL: ANY RECENT FEVER NO . CHILLS NO . WEIGHT CHANGE OF UNKNOWN REASONS NO . GASTROENTEROLOGY: NEW UNEXPLAINABLE CHANGES IN BOWEL CONTROL NO . CONSTIPATION NO . GENITOURINARY: ANY NEW CHANGE IN BLADDER CONTROL? NO . NEUROLOGY: NEW ONSET DIZZINESS OR NEUROLOGICAL CHANGES NOT MENTIONED NO . NEW NUMBNESS OR PAIN PATTERNS NOT MENTIONED AND PERTINENT TO TODAY'S VISIT NO . CARDIOLOGY: NEW CHEST PRESSURE NO . NEW CHEST PAIN NO . RESPIRATORY: UNEXPLAINABLE COUGH NO . NEW SHORTNESS OF BREATH NO . VITAL SIGNS WT 173.6 LBS, HT 67 IN, BMI 27.19 INDEX, BP 155/94 MM HG, HR 88 /MIN, RR 18 /MIN, TEMP 99.0 F, OXYGEN SAT % 95%, SAFE IN ENV? (Y/N) Y, NA INITIALS AW 1340, REVIEWED BY: MT. EXAMINATION GENERAL EXAMINATION: GENERALAWAKE,ALERT ,PLEAASANT . PSYCHAFFECT NORMAL . LUNGS:LUNG WISDOM ARE CLEAR TO AUSCULTATION BILATERALLY. GOOD MOVEMENT OF AIR . HEART:S1, S2 IN A REGULAR RATE AND RHYTHM. NO SIGNIFICANT MURMURS, RUBS OR GALLOPS NOTED . ASSESSMENTS LOW BACK PAIN - M54.5 (PRIMARY) CHRONIC PRESCRIPTION OPIATE USE - Z79.891 TREATMENT LOW BACK PAIN REFILL NORCO TABLET, 10-325 MG, 1 TABLET NEEDED, ORALLY, EVERY 6 HRS PRN MDD4, 30 DAYS, 120, REFILLS 0 NOTES: ISTOP REGISTRY REVIEWED AND DEMONSTRATES COMPLLIANCE. BRINGS IN MEDICATIONS WHICH IS APPROPRIATE FOR WHAT WAS DISPENSED. RECENT URINE TOXICOLOGY REVIEWED. NO UNAUTHORIZED MEDICATIONS. NO ILLICIT SUBSTANCES AND PRESCRIBED MEDICATIONS WERE PRESENT. URINE TOXICOLOGY TODAY , RISKS OF NARCOTIC/OPIOD MEDICATIONS INCLUDES BUT IS NOT LIMITED TO RISK OF DEPENDANCE/DEVELOPMENT OF ADDICTION, MOOD DISTURBANCE AND DEPRESSION, OSTEOPOROSIS, HORMONAL AND LABIDAL CHANGES, RESPIRATORY DEPRESSION AND . PATIENT IS ADVISED NOT TO DRIVE OR DRINK ALCOHOL WHILE ON THESE MEDICATIONS. PREVENTIVE MEDICINE PAIN CLINIC TEACHING: THE PATIENT HAS BEEN EDUCATED REGARDING HIS/HER PLAN OF CARE : PATIENT EDUCATED ON CURRENT TREATMENT PLAN AND FOLLOW UP RECOMMENDATION WITH PROVIDER, PATIENT VERBALIZES UNDERSTANDING. PATIENT PROVIDED UTOX. PROCEDURE CODES FA211 ESTABILISHED PATIENT [facility] FACILITY CHARGE DISPOSITION & COMMUNICATION FOLLOW UP 3 MONTHS (REASON: MEDICATION MANAGEMENT) ELECTRONICALLY SIGNED BY COURTNEY AMADO ON 01/11/2020 AT 01:36 PM EDT DISCLAIMER : THIS IS A VISIT SUMMARY EXTRACTED FROM THE [employer] CHART. IT IS NOT A COPY OF THE [facility] PROGRESS NOTE. MTDD
== END ==
LOC: M PAIN 13:30
PROVIDERS: ATTEND Nurse Practitioner Family
DX: M54.5 Low back pain (principal); Z79.891 Long term (current) use of opiate analgesic

== ENCOUNTER → 2020-04-07 | Outpatient (CLI) | payer OTHER ==
--- NOTE | 2020-04-10 09:38 | ECWPNPC ---
PATIENT NAME: ELVA DUTTON : 1960 GENDER: MALE VISIT DATE: 04/07/2020 DISCHARGE DATE: 04/07/20 1356 VISIT LOCKED DATE TIME: PHYSICIAN: NAOMI MORRIS RESOURCE: NAOMI MORRIS REASON FOR APPOINTMENT 1. MEDICATION MANAGEMENT HISTORY OF PRESENT ILLNESS DEPRESSION SCREENING: PHQ-2 (2015 EDITION) LITTLE INTEREST OR PLEASURE IN DOING THINGS?NOT AT ALL FEELING DOWN, DEPRESSED, OR HOPELESS?SEVERAL DAYS TOTAL SCORE1 GENERAL: -. FALL RISK SCREENING: SCREENING :NO FALLS REPORTED IN THE LAST YEAR FELL OFF LADDER 3-4 WEEKS AGO PAIN SCREENING: PATIENT HAS A COMPLAINT OF ACUTE OR CHRONIC PAIN :YES LOCATION OF PAIN:LOW BACK INTENSITY OF PAIN (SCALE OF 1 TO 10):7 WHAT DOES YOUR PAIN FEEL LIKE:ACHING, TENDER DURATION:CONTINOUS PAIN IS INCREASED BY:ACTIVITIES PAIN IS DECREASED BY:USE OF PAIN MEDICATIONS HYDROCODONE HELPS NURSING NOTE: -. PAIN CENTER INTAKE QUESTIONS: DO YOU HAVE A HISTORY OF MRSA? :NO DO YOU TAKE A BLOOD THINNERS? :NO DO YOU HAVE ANY BLEEDING DISORDERS? :NO ANY NEW NUMBNESS OR WEAKNESS IN YOUR LEGS OR ARMS? :NO ANY PACEMAKER,DEFIBRILLATOR, OR DORSAL COLUMN STIMULATOR? :NO DO YOU HAVE ANY RASHES OR OPEN SORES? :NO ARE YOU ALLERGIC TO IV DYE? :NO ARE YOU DIABETIC? :NO ANY NEW PROBLEMS WITH YOUR MEDICATIONS? :NO HAVE YOU RECEIVED A VACCINE IN THE PAST 30 DAYS? :NO DO YOU PLAN TO RECEIVE A VACCINE IN THE NEXT 21 DAYS? :YES HE MIGHT GET THE FLU VAC DO YOU NEED ANY PRESCRIPTION? :NO DO YOU TAKE ANY IMMUNOSUPPRESSIVE MEDICATIONS? :NO IS THERE A CHANCE YOU COULD BE ? :NO ARE YOU BREAST FEEDING? 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 PAIN THE PATIENT DESCRIBES THE PAIN... CURRENT MEDICATIONS TAKING REXULTI 0.25 MG TABLET 1 TABLET ORALLY ONCE A DAY, NOTES: UNSURE OF DOSE TAKING LITHIUM CARBONATE 150 MG CAPSULE 1 CAPSULE ORALLY ONCE A DAY TAKING VIIBRYD 10 MG TABLET 1 TAB ORALLY DAILY TAKING ZALEPLON 10 MG CAPSULE 1 CAPSULE AT BEDTIME NEEDED ORALLY ONCE A DAY TAKING DEXTROAMPHETAMINE SULFATE 20 MG TABLET 1 TABLET ORALLY THREE TIMES A DAY, NOTES: UNSURE OF DOSE/FREQUENCY TAKING ALPRAZOLAM 1 MG TABLET 1 TABLET ORALLY TWICE A DAY, NOTES: UNSURE OF DOSE TAKING NORCO 10-325 MG TABLET 1 TABLET NEEDED ORALLY EVERY 6 HRS PRN MDD4 NOT-TAKING CIPROFLOXACIN HCL 500 MG TABLET 1 TABLET 1 HOUR PRIOR TO YOUR CYSTOSCOPY ORALLY ONCE NOT-TAKING HYDROCODONE-ACETAMINOPHEN 10-325 MG TABLET 1 TABLET NEEDED ORALLY Q8H PRN MDD3, NOTES: DUPLICATE NOT-TAKING ADDERALL 20 MG TABLET 1 TABLET ORALLY TWICE A DAY NOT-TAKING CLONAZEPAM 1 MG TABLET 1 TABLET ORALLY ONCE A DAY NOT-TAKING KETOROLAC TROMETHAMINE 10 MG TABLET 1 TABLET WITH FOOD OR MILK NEEDED ORALLY EVERY 6 HRS NOT-TAKING ZOFRAN 4 MG TABLET 1 TAB ORALLY TWICE A DAY NEEDED FOR NAUSEA NOT-TAKING TRAZODONE HCL 50 MG TABLET ORALLY NOT-TAKING PAXIL 20 MG TABLET 1 TABLET IN THE MORNING ORALLY ONCE A DAY MEDICATION LIST REVIEWED AND RECONCILED WITH THE PATIENT PAST MEDICAL HISTORY DEPRESSION/ANXIETY - CELEXA AND ZOLOFT IN THE PAST, CURRENTLY ON TRAZODONE ONLY QHS OSTEOARTHRITIS - LUMBAGO HYPERTENSION DYSTHYMIC ALCOHOL ABUSE LOW BACK PAIN ALLERGIES N.K.D.A. SURGICAL HISTORY CYST REMOVAL RIGHT THUMB REPAIR OF LACERATION LASER LITHO CYSTO STENT REMOVAL 07/30/2019 FAMILY HISTORY FATHER: 78 YRS, COLON CANCER, [place] IN LATE 50'S, DIAGNOSED WITH UNSPECIFIED HEART DISEASE MOTHER: 74 YRS, KIDNEY DISEASE SOCIAL HISTORY GENERAL: TOBACCO USE ARE YOU A:CURRENT SMOKER HOW OFTEN DO YOU SMOKE CIGARETTES?EVERY DAY HOW SOON AFTER YOU WAKE UP DO YOU SMOKE YOUR FIRST CIGARETTE?6-30 MIN HOW MANY CIGARETTES A DAY DO YOU SMOKE?11-20 ARE YOU INTERESTED IN QUITTING?THINKING ABOUT QUITTING TRYING TO CUT BACK. PATIENT COUNSELED ON THE DANGERS OF TOBACCO USE AND URGED TO QUIT:01/06/2020 COUNSELED THE PATIENT ON SMOKING CESSATION, EDUCATION SFCEICVI24/16/2020 PREVIOUS QUIT ATTEMPTS?YES, MORE THAN 6 MONTHS AGO. LATEX QUESTIONNAIRE LATEX ALLERGY : HAVE YOU EVER DEVELOPED ANY TYPE OF REACTION AFTER HANDLING LATEX PRODUCTS SUCH RUBBER GLOVES, CONDOMS, DIAPHRAGMS, BALLOONS, SOCKS, OR UNDERWEAR?NO LATEX ALLERGY : HAVE YOU EVER DEVELOPED ANY TYPE OF REACTION DURING OR AFTER DENTAL APPOINTMENT, VAGINAL/RECTAL EXAMINATION, SURGICAL PROCEDURE, OR ANY OTHER EXPOSURE?NO LATEX RISK : HAVE YOU EVER HAD ANY DIFFICULTY BREATHING OR HIVES AFTER EATING OR HANDLING ANY FRUITS, OR VEGETABLES; SUCH KIWI, BANANAS, STONE FRUITS, OR CHESTNUTSNO LATEX RISK : DO YOU HAVE A PREVIOUS PERSONAL HISTORY OF MORE THAN NINE SURGERIES, SPINA BIFIDA, OR REPEATED CATHERIZATIONS? NO LATEX RISK : ARE YOU FREQUENTLY EXPOSED TO LATEX PRODUCTS IN YOUR OCCUPATION?NO DATE ASKED : 04/07/2020 ALCOHOL SCREENING DID YOU HAVE A DRINK CONTAINING ALCOHOL IN THE PAST YEAR?YES HOW OFTEN DID YOU HAVE SIX OR MORE DRINKS ON ONE OCCASION IN THE PAST YEAR?NEVER (0 POINTS) HOW MANY DRINKS DID YOU HAVE ON A TYPICAL DAY WHEN YOU WERE DRINKING IN THE PAST YEAR?1 OR 2 (0 POINTS) HOW OFTEN DID YOU HAVE A DRINK CONTAINING ALCOHOL IN THE PAST YEAR?MONTHLY OR LESS (1 POINT) POINTS1 INTERPRETATIONNEGATIVE RECREATIONAL DRUG USE DRUG USE?NO CAFFEINE CAFFEINE USE?NO QUAKER [id number] FAITH LANGUAGE LANGUAGES SPOKEN:MONEGASQUE LEARNING BARRIERS / SPECIAL NEEDS BARRIERS TO LEARNING?NO HEARING IMPAIRED?NO VISION IMPAIRED?YES COGNITIVELY IMPAIRED?NO :CORRECTIVE LENSES READING GLASSES READINESS TO LEARN?YES LEARNING PREFERENCES?NO LEARNING CAPABILITIES PRESENT?YES EMOTIONAL BARRIERS?NO SPECIAL DEVICES?NO SINGER BACK TENDER NEEDED?NO DOMESTIC VIOLENCE DO YOU FEEL SAFE IN YOUR ENVIRONMENT?YES OCCUPATION: [employer]. DIET: REGULAR. 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 PAIN CLINIC PFS, CLERGY, PUBLIC HEALTH REFERRALS PFS REFERRAL NEEDED?NO CLERGY REFERRAL NEEDED?NO PUBLIC HEALTH REFERRAL NEEDED?NO WAS THE PROVIDER NOTIFIED OF ANY PERTINENT INFO? N/A HAS THE PATIENT BEEN EDUCATED REGARDING HIS/HER PLAN OF CARE?YES HAS THE PATIENT BEEN EDUCATED REGARDING PAIN, THE RISK FOR PAIN, THE IMPORTANCE OF EFFECTIVE PAIN MANAGEMENT, AND THE PAIN ASSESSMENT PROCESS?YES ADVANCE DIRECTIVE ADVANCE DIRECTIVE DISCUSSED WITH PATIENT:YES HCP - [facility] ([facility] & [facility] ([facility]) HOSPITALIZATION/MAJOR DIAGNOSTIC PROCEDURE [facility]LY [facility] INPATIENT ADMISSION 09/2017 REVIEW OF SYSTEMS CONSTITUTIONAL: ANY RECENT FEVER NO . CHILLS NO . WEIGHT CHANGE OF UNKNOWN REASONS NO . GASTROENTEROLOGY: NEW UNEXPLAINABLE CHANGES IN BOWEL CONTROL NO . CONSTIPATION NO . GENITOURINARY: ANY NEW CHANGE IN BLADDER CONTROL? NO . NEUROLOGY: NEW ONSET DIZZINESS OR NEUROLOGICAL CHANGES NOT MENTIONED NO . NEW NUMBNESS OR PAIN PATTERNS NOT MENTIONED AND PERTINENT TO TODAY'S VISIT NO . CARDIOLOGY: NEW CHEST PRESSURE NO . NEW CHEST PAIN NO . RESPIRATORY: UNEXPLAINABLE COUGH NO . NEW SHORTNESS OF BREATH NO . VITAL SIGNS WT 181.2 LBS, HT 67 IN, BMI 28.38 INDEX, BP 178/104 MM HG, HR 89 /MIN, RR 18 /MIN, TEMP 98.3 F, OXYGEN SAT % 97%, SAFE IN ENV? (Y/N) YES, NA INITIALS SC 13:34, REVIEWED BY: ROBERTA. EXAMINATION GENERAL EXAMINATION: GENERALAWAKE,ALERT ,PLEAASANT . PSYCHAFFECT NORMAL . LUNGS:LUNG WISDOM ARE CLEAR TO AUSCULTATION BILATERALLY. GOOD MOVEMENT OF AIR . HEART:S1, S2 IN A REGULAR RATE AND RHYTHM. NO SIGNIFICANT MURMURS, RUBS OR GALLOPS NOTED . ASSESSMENTS LOW BACK PAIN - M54.5 (PRIMARY) CHRONIC PRESCRIPTION OPIATE USE - Z79.891 TREATMENT LOW BACK PAIN REFILL NORCO TABLET, 10-325 MG, 1 TABLET NEEDED, ORALLY, EVERY 6 HRS PRN MDD4, 30 DAYS, 120, REFILLS 0 NOTES: ISTOP REGISTRY REVIEWED AND DEMONSTRATES COMPLLIANCE. (REF # ) BRINGS IN MEDICATIONS WHICH IS APPROPRIATE FOR WHAT WAS DISPENSED. RECENT URINE TOXICOLOGY REVIEWED. NO UNAUTHORIZED MEDICATIONS. NO ILLICIT SUBSTANCES AND PRESCRIBED MEDICATIONS WERE PRESENT. , RISKS OF NARCOTIC/OPIOD MEDICATIONS INCLUDES BUT IS NOT LIMITED TO RISK OF DEPENDANCE/DEVELOPMENT OF ADDICTION, MOOD DISTURBANCE AND DEPRESSION, OSTEOPOROSIS, HORMONAL AND LABIDAL CHANGES, RESPIRATORY DEPRESSION AND . PATIENT IS ADVISED NOT TO DRIVE OR DRINK ALCOHOL WHILE ON THESE MEDICATIONS. PROCEDURE CODES FA211 ESTABILISHED PATIENT [facility] CHARGE DISPOSITION & COMMUNICATION FOLLOW UP 3 MONTHS (REASON: MEDICATION MANAGEMENT/URINE TOXICOLOGY) ELECTRONICALLY SIGNED BY COURTNEY AMADO ON 04/10/2020 AT 09:34 AM EDT DISCLAIMER : THIS IS A VISIT SUMMARY EXTRACTED FROM THE [employer] CHART. IT IS NOT A COPY OF THE [employer] PROGRESS NOTE. CAROLE
--- NOTE | 2020-04-10 09:40 | ECWPNPC ---
PATIENT NAME: ELVA DUTTON : 1960 GENDER: MALE VISIT DATE: 04/07/2020 DISCHARGE DATE: 04/07/20 1356 VISIT LOCKED DATE TIME: PHYSICIAN: NAOMI MORRIS RESOURCE: NAOMI MORRIS REASON FOR APPOINTMENT 1. MEDICATION MANAGEMENT HISTORY OF PRESENT ILLNESS DEPRESSION SCREENING: PHQ-2 (2015 EDITION) LITTLE INTEREST OR PLEASURE IN DOING THINGS?NOT AT ALL FEELING DOWN, DEPRESSED, OR HOPELESS?SEVERAL DAYS TOTAL SCORE1 GENERAL: -. FALL RISK SCREENING: SCREENING :NO FALLS REPORTED IN THE LAST YEAR FELL OFF LADDER 3-4 WEEKS AGO PAIN SCREENING: PATIENT HAS A COMPLAINT OF ACUTE OR CHRONIC PAIN :YES LOCATION OF PAIN:LOW BACK INTENSITY OF PAIN (SCALE OF 1 TO 10):7 WHAT DOES YOUR PAIN FEEL LIKE:ACHING, TENDER DURATION:CONTINOUS PAIN IS INCREASED BY:ACTIVITIES PAIN IS DECREASED BY:USE OF PAIN MEDICATIONS HYDROCODONE HELPS NURSING NOTE: -. PAIN CENTER INTAKE QUESTIONS: DO YOU HAVE A HISTORY OF MRSA? :NO DO YOU TAKE A BLOOD THINNERS? :NO DO YOU HAVE ANY BLEEDING DISORDERS? :NO ANY NEW NUMBNESS OR WEAKNESS IN YOUR LEGS OR ARMS? :NO ANY PACEMAKER,DEFIBRILLATOR, OR DORSAL COLUMN STIMULATOR? :NO DO YOU HAVE ANY RASHES OR OPEN SORES? :NO ARE YOU ALLERGIC TO IV DYE? :NO ARE YOU DIABETIC? :NO ANY NEW PROBLEMS WITH YOUR MEDICATIONS? :NO HAVE YOU RECEIVED A VACCINE IN THE PAST 30 DAYS? :NO DO YOU PLAN TO RECEIVE A VACCINE IN THE NEXT 21 DAYS? :YES HE MIGHT GET THE FLU VAC DO YOU NEED ANY PRESCRIPTION? :NO DO YOU TAKE ANY IMMUNOSUPPRESSIVE MEDICATIONS? :NO IS THERE A CHANCE YOU COULD BE ? :NO ARE YOU BREAST FEEDING? 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 PAIN THE PATIENT DESCRIBES THE PAIN... CURRENT MEDICATIONS TAKING REXULTI 0.25 MG TABLET 1 TABLET ORALLY ONCE A DAY, NOTES: UNSURE OF DOSE TAKING LITHIUM CARBONATE 150 MG CAPSULE 1 CAPSULE ORALLY ONCE A DAY TAKING VIIBRYD 10 MG TABLET 1 TAB ORALLY DAILY TAKING ZALEPLON 10 MG CAPSULE 1 CAPSULE AT BEDTIME NEEDED ORALLY ONCE A DAY TAKING DEXTROAMPHETAMINE SULFATE 20 MG TABLET 1 TABLET ORALLY THREE TIMES A DAY, NOTES: UNSURE OF DOSE/FREQUENCY TAKING ALPRAZOLAM 1 MG TABLET 1 TABLET ORALLY TWICE A DAY, NOTES: UNSURE OF DOSE TAKING NORCO 10-325 MG TABLET 1 TABLET NEEDED ORALLY EVERY 6 HRS PRN MDD4 NOT-TAKING CIPROFLOXACIN HCL 500 MG TABLET 1 TABLET 1 HOUR PRIOR TO YOUR CYSTOSCOPY ORALLY ONCE NOT-TAKING HYDROCODONE-ACETAMINOPHEN 10-325 MG TABLET 1 TABLET NEEDED ORALLY Q8H PRN MDD3, NOTES: DUPLICATE NOT-TAKING ADDERALL 20 MG TABLET 1 TABLET ORALLY TWICE A DAY NOT-TAKING CLONAZEPAM 1 MG TABLET 1 TABLET ORALLY ONCE A DAY NOT-TAKING KETOROLAC TROMETHAMINE 10 MG TABLET 1 TABLET WITH FOOD OR MILK NEEDED ORALLY EVERY 6 HRS NOT-TAKING ZOFRAN 4 MG TABLET 1 TAB ORALLY TWICE A DAY NEEDED FOR NAUSEA NOT-TAKING TRAZODONE HCL 50 MG TABLET ORALLY NOT-TAKING PAXIL 20 MG TABLET 1 TABLET IN THE MORNING ORALLY ONCE A DAY MEDICATION LIST REVIEWED AND RECONCILED WITH THE PATIENT PAST MEDICAL HISTORY DEPRESSION/ANXIETY - CELEXA AND ZOLOFT IN THE PAST, CURRENTLY ON TRAZODONE ONLY QHS OSTEOARTHRITIS - LUMBAGO HYPERTENSION DYSTHYMIC ALCOHOL ABUSE LOW BACK PAIN ALLERGIES N.K.D.A. SURGICAL HISTORY CYST REMOVAL RIGHT THUMB REPAIR OF LACERATION LASER LITHO CYSTO STENT REMOVAL 07/30/2019 FAMILY HISTORY FATHER: 78 YRS, COLON CANCER, [place] IN LATE 50'S, DIAGNOSED WITH UNSPECIFIED HEART DISEASE MOTHER: 74 YRS, KIDNEY DISEASE SOCIAL HISTORY GENERAL: TOBACCO USE ARE YOU A:CURRENT SMOKER HOW OFTEN DO YOU SMOKE CIGARETTES?EVERY DAY HOW SOON AFTER YOU WAKE UP DO YOU SMOKE YOUR FIRST CIGARETTE?6-30 MIN HOW MANY CIGARETTES A DAY DO YOU SMOKE?11-20 ARE YOU INTERESTED IN QUITTING?THINKING ABOUT QUITTING TRYING TO CUT BACK. PATIENT COUNSELED ON THE DANGERS OF TOBACCO USE AND URGED TO QUIT:01/06/2020 COUNSELED THE PATIENT ON SMOKING CESSATION, EDUCATION [id number]/16/2020 PREVIOUS QUIT ATTEMPTS?YES, MORE THAN 6 MONTHS AGO. LATEX QUESTIONNAIRE LATEX ALLERGY : HAVE YOU EVER DEVELOPED ANY TYPE OF REACTION AFTER HANDLING LATEX PRODUCTS SUCH RUBBER GLOVES, CONDOMS, DIAPHRAGMS, BALLOONS, SOCKS, OR UNDERWEAR?NO LATEX ALLERGY : HAVE YOU EVER DEVELOPED ANY TYPE OF REACTION DURING OR AFTER DENTAL APPOINTMENT, VAGINAL/RECTAL EXAMINATION, SURGICAL PROCEDURE, OR ANY OTHER EXPOSURE?NO LATEX RISK : HAVE YOU EVER HAD ANY DIFFICULTY BREATHING OR HIVES AFTER EATING OR HANDLING ANY FRUITS, OR VEGETABLES; SUCH KIWI, BANANAS, STONE FRUITS, OR CHESTNUTSNO LATEX RISK : DO YOU HAVE A PREVIOUS PERSONAL HISTORY OF MORE THAN NINE SURGERIES, SPINA BIFIDA, OR REPEATED CATHERIZATIONS? NO LATEX RISK : ARE YOU FREQUENTLY EXPOSED TO LATEX PRODUCTS IN YOUR OCCUPATION?NO DATE ASKED : 04/07/2020 ALCOHOL SCREENING DID YOU HAVE A DRINK CONTAINING ALCOHOL IN THE PAST YEAR?YES HOW OFTEN DID YOU HAVE SIX OR MORE DRINKS ON ONE OCCASION IN THE PAST YEAR?NEVER (0 POINTS) HOW MANY DRINKS DID YOU HAVE ON A TYPICAL DAY WHEN YOU WERE DRINKING IN THE PAST YEAR?1 OR 2 (0 POINTS) HOW OFTEN DID YOU HAVE A DRINK CONTAINING ALCOHOL IN THE PAST YEAR?MONTHLY OR LESS (1 POINT) POINTS1 INTERPRETATIONNEGATIVE RECREATIONAL DRUG USE DRUG USE?NO CAFFEINE CAFFEINE USE?NO JUDAISM [id number] YARSANISM LANGUAGE LANGUAGES SPOKEN:MEXICAN LEARNING BARRIERS / SPECIAL NEEDS BARRIERS TO LEARNING?NO HEARING IMPAIRED?NO VISION IMPAIRED?YES COGNITIVELY IMPAIRED?NO :CORRECTIVE LENSES READING GLASSES READINESS TO LEARN?YES LEARNING PREFERENCES?NO LEARNING CAPABILITIES PRESENT?YES EMOTIONAL BARRIERS?NO SPECIAL DEVICES?NO STOCK REPAIRER NEEDED?NO DOMESTIC VIOLENCE DO YOU FEEL SAFE IN YOUR ENVIRONMENT?YES OCCUPATION: [employer]. DIET: REGULAR. 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 PAIN CLINIC PFS, CLERGY, PUBLIC HEALTH REFERRALS PFS REFERRAL NEEDED?NO CLERGY REFERRAL NEEDED?NO PUBLIC HEALTH REFERRAL NEEDED?NO WAS THE PROVIDER NOTIFIED OF ANY PERTINENT INFO? N/A HAS THE PATIENT BEEN EDUCATED REGARDING HIS/HER PLAN OF CARE?YES HAS THE PATIENT BEEN EDUCATED REGARDING PAIN, THE RISK FOR PAIN, THE IMPORTANCE OF EFFECTIVE PAIN MANAGEMENT, AND THE PAIN ASSESSMENT PROCESS?YES ADVANCE DIRECTIVE ADVANCE DIRECTIVE DISCUSSED WITH PATIENT:YES HCP - [facility] & [facility] ([facility] HOSPITALIZATION/MAJOR DIAGNOSTIC PROCEDURE [facility] INPATIENT ADMISSION 09/2017 REVIEW OF SYSTEMS CONSTITUTIONAL: ANY RECENT FEVER NO . CHILLS NO . WEIGHT CHANGE OF UNKNOWN REASONS NO . GASTROENTEROLOGY: NEW UNEXPLAINABLE CHANGES IN BOWEL CONTROL NO . CONSTIPATION NO . GENITOURINARY: ANY NEW CHANGE IN BLADDER CONTROL? NO . NEUROLOGY: NEW ONSET DIZZINESS OR NEUROLOGICAL CHANGES NOT MENTIONED NO . NEW NUMBNESS OR PAIN PATTERNS NOT MENTIONED AND PERTINENT TO TODAY'S VISIT NO . CARDIOLOGY: NEW CHEST PRESSURE NO . NEW CHEST PAIN NO . RESPIRATORY: UNEXPLAINABLE COUGH NO . NEW SHORTNESS OF BREATH NO . VITAL SIGNS WT 181.2 LBS, HT 67 IN, BMI 28.38 INDEX, BP 178/104 MM HG, HR 89 /MIN, RR 18 /MIN, TEMP 98.3 F, OXYGEN SAT % 97%, SAFE IN ENV? (Y/N) YES, NA INITIALS SC 13:34, REVIEWED BY: ROBERTA. EXAMINATION GENERAL EXAMINATION: GENERALAWAKE,ALERT ,PLEAASANT . PSYCHAFFECT NORMAL . LUNGS:LUNG WISDOM ARE CLEAR TO AUSCULTATION BILATERALLY. GOOD MOVEMENT OF AIR . HEART:S1, S2 IN A REGULAR RATE AND RHYTHM. NO SIGNIFICANT MURMURS, RUBS OR GALLOPS NOTED . ASSESSMENTS LOW BACK PAIN - M54.5 (PRIMARY) CHRONIC PRESCRIPTION OPIATE USE - Z79.891 TREATMENT LOW BACK PAIN REFILL NORCO TABLET, 10-325 MG, 1 TABLET NEEDED, ORALLY, EVERY 6 HRS PRN MDD4, 30 DAYS, 120, REFILLS 0 NOTES: ISTOP REGISTRY REVIEWED AND DEMONSTRATES COMPLLIANCE. (REF # ) BRINGS IN MEDICATIONS WHICH IS APPROPRIATE FOR WHAT WAS DISPENSED. RECENT URINE TOXICOLOGY REVIEWED. NO UNAUTHORIZED MEDICATIONS. NO ILLICIT SUBSTANCES AND PRESCRIBED MEDICATIONS WERE PRESENT. , RISKS OF NARCOTIC/OPIOD MEDICATIONS INCLUDES BUT IS NOT LIMITED TO RISK OF DEPENDANCE/DEVELOPMENT OF ADDICTION, MOOD DISTURBANCE AND DEPRESSION, OSTEOPOROSIS, HORMONAL AND LABIDAL CHANGES, RESPIRATORY DEPRESSION AND . PATIENT IS ADVISED NOT TO DRIVE OR DRINK ALCOHOL WHILE ON THESE MEDICATIONS. PROCEDURE CODES FA211 ESTABILISHED PATIENT [facility] CHARGE DISPOSITION & COMMUNICATION FOLLOW UP 3 MONTHS (REASON: MEDICATION MANAGEMENT/URINE TOXICOLOGY) ELECTRONICALLY SIGNED BY COURTNEY AMADO ON 04/10/2020 AT 09:34 AM EDT DISCLAIMER : THIS IS A VISIT SUMMARY EXTRACTED FROM THE [employer] CHART. IT IS NOT A COPY OF THE [employer] PROGRESS NOTE. CAROLE
== END ==
LOC: M PAIN 13:30
PROVIDERS: ATTEND Nurse Practitioner Family
DX: M54.5 Low back pain (principal); F34.1 Dysthymic disorder; I10 Essential (primary) hypertension; F10.10 Alcohol abuse, uncomplicated; F17.210 Nicotine dependence, cigarettes, uncomplicated; Z79.891 Long term (current) use of opiate analgesic; Z79.899 Other long term (current) drug therapy

== ENCOUNTER → 2020-05-29 | Outpatient (CLI) | payer SELFPAY | LOC: M LABSMTC 15:00 | PROVIDERS: ATTEND Pediatrics | DX: Z11.59 Encounter for screening for other viral diseases (principal) ==

== ENCOUNTER 2020-07-02 06:40 | Emergency (ER) | payer OTHER, SELFPAY ==
[~2020-07-02] VITALS: Ht 172.7 cm; Wt 81.4 kg
[2020-07-02] MEDS ORDERED: ADDE20CA3 PO (06:54)
[2020-07-02] MEDS ORDERED: REXU1TAB3 PO (06:54)
[2020-07-02 08:18] VITALS: BP 176/89
[2020-07-02] MEDS ORDERED: XANA1TAB2 PO (08:32)
== END 2020-07-02 08:55 | disposition home or self-care (01) ==
LOC: M ED 06:40
DX: Z76.0 Encounter for issue of repeat prescription (principal); F41.9 Anxiety disorder, unspecified; F32.9 Major depressive disorder, single episode, unspecified; I10 Essential (primary) hypertension; E78.9 Disorder of lipoprotein metabolism, unspecified; K21.9 Gastro-esophageal reflux disease without esophagitis; F17.200 Nicotine dependence, unspecified, uncomplicated; Z79.899 Other long term (current) drug therapy

== ENCOUNTER 2020-07-04 16:57 | Emergency (ER) | payer OTHER ==
[~2020-07-04] VITALS: Ht 175.3 cm; Wt 79.5 kg
[~2020-07-04 16:57] MED LIST changes: +ADDE20CA3 PO; +REXU1TAB3 PO; +XANA1TAB2 PO
--- OUTSIDE RECORDS SUMMARY | 2020-07-04 17:06 | CCD ---
Author Author [facility] Organization [facility] Address Unknown Phone Unavailable Care Team Providers Care Line Service Person Name Role Phone Amy Rodriguez Unavailable PROBLEMS Type Condition ICD9-CM Code [id number] Code Onset Dates Condition S tatus SNOMED Code Notes Problem Other chronic pain G89.29 Active 00626829 Problem Kidney stone N20.0 Active 29472151 Problem Alcohol abuse 305.00 Active 37095352 Problem Dysthymic disorder 300.4 Active 95635903 Problem Low back pain M54.5 Active [id number] ALLERGIES No Known Allergies ENCOUNTERS from 1960 to 2020-05-12 Encounter Location Date Provider Diagnosis [facility] [address] [place] [id number] Apr, Amy Rodriguez Low back pain M54.5 IMMUNIZATIONS No Information SOCIAL HISTORY Tobacco Use: Social History Observation Description Date Details (start date - stop date) Current Smoker Sex Assigned At : Social History Observation Description Sex Assigned At Unknown Language: Question Answer Notes Languages spoken: Cuban [facility]: Question Answer Notes [facility] [employer] Alcohol Screening: Question Answer Notes Did you have a drink containing alcohol in the past year? Ye s Points 1 Interpretation Negative How often did you have six or more drinks on one occas ion in the past year? Never (0 points) How many drinks did you have on a typica l day when you were drinking in the past year? 1 or 2 (0 points) How often did you have a drink containing alcohol in t he past year? Monthly or less (1 point) Tobacco Use: Question Answer Notes Are you a: current smoker Patient counseled on the dangers of tobacco use and urged to quit: 2020 How many cigarettes a day do you smoke? 11-20 Are you interested in quitting? Thinking about quitting Tryi ng to cut back. Counseled the patient on smoking cessation, education provid ed 2020 REASON FOR REFERRAL No Information VITAL SIGNS No information MEDICATIONS Medication SIG (Take, Route, Frequency, Duration) Notes Start Da te End Date Status TraZODone HCl 50 MG Orally Not-T aking Dextroamphetamine Sulfate 20 MG 1 tablet Orally Three times a day Active Adderall 20 MG 1 tablet Orally Twice a day Not-Taking Ketorolac Tromethamine 10 MG 1 tablet with food or mil k as needed Orally every 6 hrs for 5 day(s) Jun, Not-Taking Clonazepam 1 MG 1 tablet Orally Once a day Not-Taking Zofran 4 MG 1 tab Orally Twice a day as needed for nausea Feb, Not-Taking Paxil 20 mg 1 tablet in the morning Orally Once a day for 30 day(s) May, Not-Taking Zaleplon 10 MG 1 capsule at bedtime as needed Orally Once a day Active Hydrocodone-Acetaminophen 10-325 MG 1 tablet as needed Orally q8h prn mdd3 for 30 day(s) Mar, Not-Taking [place] Carbonate 150 MG 1 capsule Orally Once a day Active Alprazolam 1 mg 1 tablet Orally Twice a day Active Viibryd 10 MG 1 tab Orally Daily Act ambrose [place] 10-325 MG 1 tablet as needed Orally every 6 hrs prn mdd4 f or 30 days Apr, Active Ciprofloxacin HCl 500 MG 1 tablet 1 hour prior to you r cystoscopy Orally Once for 1 days Jun, Not-Taking Rexulti 0.25 MG 1 tablet Orally Once a day Active PROCEDURES No Information RESULTS No Results REASON FOR VISIT Hydrocodone Refill MEDICAL (GENERAL) HISTORY Type Description Date Medical History Depression/anxiety - celexa and zoloft in the past, currently on Trazodone only qhs Medical History Osteoarthritis - lumbago Medical History hypertension Medical History Dysthymic Medical History Alcohol Abuse Medical History Low back pain Surgical History cyst removal Surgical History right thumb repair of laceration Surgical History LASER LITHO Surgical History CYSTO STENT REMOVAL 07/30/2019 Hospitalization History [facility] inpatient admission 09/2017 Goals Section No Information Health Concerns No Information MEDICAL EQUIPMENT No Information MENTAL STATUS No Information FUNCTIONAL STATUS No Information ASSESSMENTS Encounter Date Diagnosis Assessment Notes Treatment Notes Treatm ent Clinical Notes Apr, Low back pain (ICD-10 - M54.5) PLAN OF TREATMENT Medication Medication Name Sig Start Date Stop Date [place] 10-325 MG 1 tablet as needed Orally every 6 hrs pr n mdd4 for 30 days Apr, Next Appt Details Provider Name:Amy Rodriguez, 2020-07-07 02 :30:00 PM, [address] [place] [address], [phone], Insurance Providers Payer Name Payer Address Payer Phone Insured Name Patient Relati onship to Insured Coverage Start Date Coverage End Date [facility] [address] [facility] [id number] ELVA DUTTON self
--- OUTSIDE RECORDS SUMMARY | 2020-07-04 17:06 | CCD ---
Author Author [facility] Organization [facility] Address Unknown Phone Unavailable Care Team Providers Care Community Engagement Representative Name Role Phone Gagan, A Dayana ORTHOTIC FINISH GRINDING TECHNICIAN Unavailable Unavailable Gagan, A Dayana ORTHOTIC FINISH GRINDING TECHNICIAN Unavailable Unavailable Gagan, A Dayana ORTHOTIC FINISH GRINDING TECHNICIAN Unavailable Unavailable Gagan, A Dayana ORTHOTIC FINISH GRINDING TECHNICIAN Unavailable Unavailable Gagan, A Dayana ORTHOTIC FINISH GRINDING TECHNICIAN Unavailable Unavailable Gagan, A Dayana ORTHOTIC FINISH GRINDING TECHNICIAN Unavailable Unavailable Gagan, A Dayana ORTHOTIC FINISH GRINDING TECHNICIAN Unavailable Unavailable Gagan, A Dayana ORTHOTIC FINISH GRINDING TECHNICIAN Unavailable Unavailable Gagan, A Dayana ORTHOTIC FINISH GRINDING TECHNICIAN Unavailable Unavailable Gagan, A Dayana ORTHOTIC FINISH GRINDING TECHNICIAN Unavailable Unavailable Gagan, A Dayana ORTHOTIC FINISH GRINDING TECHNICIAN Unavailable Unavailable Gagan, A Dayana ORTHOTIC FINISH GRINDING TECHNICIAN Unavailable Unavailable Gagan, A Dayana ORTHOTIC FINISH GRINDING TECHNICIAN Unavailable Unavailable Gagan, A Dayana ORTHOTIC FINISH GRINDING TECHNICIAN Unavailable Unavailable Gagan, A Dayana ORTHOTIC FINISH GRINDING TECHNICIAN Unavailable Unavailable Gagan, A Dayana ORTHOTIC FINISH GRINDING TECHNICIAN Unavailable Unavailable Gagan, A Dayana ORTHOTIC FINISH GRINDING TECHNICIAN Unavailable Unavailable Gagan, A Dayana ORTHOTIC FINISH GRINDING TECHNICIAN Unavailable Unavailable Gagan, A Dayana ORTHOTIC FINISH GRINDING TECHNICIAN Unavailable Unavailable Gagan, A Dayana ORTHOTIC FINISH GRINDING TECHNICIAN Unavailable Unavailable Gagan, A Dayana ORTHOTIC FINISH GRINDING TECHNICIAN Unavailable Unavailable Gagan, A Dayana ORTHOTIC FINISH GRINDING TECHNICIAN Unavailable Unavailable Gagan, A Dayana ORTHOTIC FINISH GRINDING TECHNICIAN Unavailable Unavailable Gagan, A Dayana ORTHOTIC FINISH GRINDING TECHNICIAN Unavailable Unavailable Gagan, A Dayana ORTHOTIC FINISH GRINDING TECHNICIAN Unavailable Unavailable Gagan, A Dayana ORTHOTIC FINISH GRINDING TECHNICIAN Unavailable Unavailable Gagan, A Dayana ORTHOTIC FINISH GRINDING TECHNICIAN Unavailable Unavailable [facility], [facility] Unavailable Unavailable LORETA, HARRISON PA Unavailable Unavailable LORETA, HARRISON PA Unavailable Unavailable LORETA, HARRISON PA Unavailable Unavailable LORETA, HARRISON PA Unavailable Unavailable LORETA, HARRISON PA Unavailable Unavailable LORETA, HARRISON PA Unavailable Unavailable LORETA, HARRISON PA Unavailable Unavailable LORETA, HARRISON PA Unavailable Unavailable LORETA, HARRISON PA Unavailable Unavailable LORETA, HARRISON PA Unavailable Unavailable LORETA, HARRISON PA Unavailable Unavailable LORETA, HARRISON PA Unavailable Unavailable LORETA, HARRISON PA Unavailable Unavailable LORETA, HARRISON PA Unavailable Unavailable LORETA, HARRISON PA Unavailable Unavailable LORETA, HARRISON PA Unavailable Unavailable LORETA, HARRISON PA Unavailable Unavailable LORETA, HARRISON PA Unavailable Unavailable LORETA, HARRISON PA Unavailable Unavailable LORETA, HARRISON PA Unavailable Unavailable LORETA, HARRISON PA Unavailable Unavailable LORETA, HARRISON PA Unavailable Unavailable LORETA, HARRISON PA Unavailable Unavailable LORETA, HARRISON PA Unavailable Unavailable LORETA, HARRISON PA Unavailable Unavailable LORETA, HARRISON PA Unavailable Unavailable LORETA, HARRISON PA Unavailable Unavailable LORETA, HARRISON PA Unavailable Unavailable LORETA, HARRISON PA Unavailable Unavailable LORETA, HARRISON PA Unavailable Unavailable LORETA, HARRISON PA Unavailable Unavailable LORETA, HARRISON PA Unavailable Unavailable LORETA, HARRISON PA Unavailable Unavailable LORETA, HARRISON PA Unavailable Unavailable LORETA, HARRISON PA Unavailable Unavailable LORETA, HARRISON PA Unavailable Unavailable LORETA, HARRISON PA Unavailable Unavailable LORETA, HARRISON PA Unavailable Unavailable Gagan, Dayana ORTHOTIC FINISH GRINDING TECHNICIAN ORTHOTIC FINISH GRINDING TECHNICIAN Unavailable Unavailable Re-disclosure Warning The records that you are about to access may contain information from federally-assisted alcohol or drug abuse programs. If such information is present, then the following federally mandated warning applies: This information has been disclosed to you from records protected by federal confidentiality rules (42 CFR part 2). The federal rules prohibit you from making any further disclosure of this information unless further disclosure is expressly permitted by the written consent of the person to whom it pertains or as otherwise permitted by 42 CFR part 2. A general authorization for the release of medical or other information is NOT sufficient for this purpose. The Federal rules restrict any use of the information to criminally investigate or prosecute any alcohol or drug abuse patient.The records that you are about to access may contain highly sensitive health information, the redisclosure of which is protected by Article 27-F of the [facility] Public Health law. If you continue you may have access to information: Regarding HIV / AIDS; Provided by facilities licensed or operated by the [facility] Office of Mental Health; or Provided by the [facility] Office for People With Developmental Disabilities. If such information is present, then the following [facility] mandated warning applies: This information has been disclosed to you from confidential records which are protected by state law. State law prohibits you from making any further disclosure of this information without the specific written consent of the person to whom it pertains, or as otherwise permitted by law. Any unauthorized further disclosure in violation of state law may result in a fine or prison sentence or both. A general authorization for the release of medical or other information is NOT sufficient authorization for further disc losure. Family History Family Member Name Family Member Gender Family Member Status Date o f Status Description Data Source(s) Unknown Unknown Problem MEDENT ([facility]) Unknown Unknown Problem MEDENT ([facility]) Unknown Unknown Problem MEDENT ([facility]) Unknown Unknown Problem MEDENT ([facility]) father Unknown Female Problem MEDENT ([facility]) Encounters Encounter Providers Location Date Indications Data Source(s ) [place] [address] [facility] [address] 06/09/2020 12:00:00 AM EST eCW1 ([facility]) [place] [address] [facility] [address] 05/11/2020 12:00:00 AM EST eCW1 ([facility]) [place] [address] [facility] [address] 04/07/2020 12:00:00 AM EDT eCW1 ([facility]) Outpatient Attender: Dayana VALDEZ FP 03/09/2020 04:1 7:[address] [facility] [address] [facility] [address] 2020 12:00:00 AM EDT eCW1 ([facility]) [place] [address] [facility] [address] 2020 12:00:00 AM EDT eCW1 ([facility]) [place] [address] [facility] [address] 12/09/2019 12:00:00 AM EDT eCW1 ([facility]) Outpatient Attender: COURTNEY VALDEZ FP 11/30/2019 07:48:17 [facility] [address] [place] [phone] 11/09/2019 12:00:00 AM EDT eCW1 ([facility]) [facility] [address] [place] [address] 10/11/2019 12:00:00 AM EDT eCW1 ([facility]) [facility] [address] [place] [address] 10/11/2019 12:00:00 AM EDT eCW1 ([facility]) [facility] [address] [place] [address] 09/15/2019 12:00:00 AM EDT eCW1 ([facility]) [facility] [address] [place] [address] 09/14/2019 12:00:00 AM EDT eCW1 ([facility]) Outpatient Attender: COURTNEY VALDEZ FP 08/31/2019 11:54:01 A M [facility] [address] [place] [address] 08/10/2019 12:00:00 AM EST eCW1 [facility] Outpatient Attender: COURTNEY DIEZ 08/09/2019 10:32:01 A M [facility] Outpatient Attender: COURTNEY DIEZ 07/30/2019 10:20:00 A M [facility] [address] [facility] [address] 07/30/2019 12:00:00 AM EST eCW1 ([facility]) [facility] Urology [address] [facility], [facility] [address] 07/27/2019 12:00:00 AM EST eCW1 ([facility]) Outpatient Attender: Dayana DIEZ 07/25/2019 10:4 7:01 PM [facility] Outpatient Attender: COURTNEY VALDEZ FP 07/21/2019 03:00:00 P M [facility] Outpatient Attender: COURTNEY DIEZ 07/21/2019 02:58:01 P M [facility] Outpatient Attender: COURTNEY DIEZ 07/21/2019 02:57:00 P M [facility] Outpatient Attender: COURTNEY DIEZ 07/21/2019 12:40:06 P M [facility] Outpatient Attender: COURTNEY DIEZ 07/21/2019 11:47:00 A M [facility] Outpatient Attender: COURTNEY VALDEZ FP 07/21/2019 11:05:00 A M [facility] Outpatient Attender: Dayana DIEZ 07/21/2019 10:1 3:01 AM [facility] Outpatient Attender: COURTNEY DIEZ 07/21/2019 10:13:00 A M [facility] [address] [facility] [address] 07/21/2019 12:00:00 AM EST eCW1 ([facility]) Outpatient Attender: SARA DIEZ 07/20/2019 04:45:[address] [facility] Outpatient 07/19/2019 02:28:[address] PM [address] [facility] Outpatient Attender: HARRISON shabazz 07/14/2019 01:45:00 PM EST MEDENT ([facility]) [facility] [address] [place] [address] 07/12/2019 12:00:00 AM EST eCW1 ([facility]) [facility] [address] [place] [address] 06/21/2019 12:00:00 AM EST eCW1 ([facility]) [facility] [address] [place] [phone] 06/11/2019 12:00:00 AM EST eCW1 ([facility]) [facility] [address] [place] [address] 05/14/2019 12:00:00 AM EST eCW1 ([facility]) Medications Medication Brand Name Start Date Product Form Dose Route Admi nistrative Instructions Pharmacy Instructions Status Indications Reaction Description Data Source(s) Acetaminophen 325 MG / Hydrocodone Samira trate 10 MG Oral Tablet [Sproul] Sproul 10-325 MG Sproul 10-325 MG 06/12/2020 12:00:00 AM EST 1.0 {tablet_as_ needed} active Sproul 10-325 MG eCW1 ([facility]) Acetaminophen 325 MG / Hydrocodone Samira trate 10 MG Oral Tablet [Sproul] Sproul 10-325 MG Sproul 10-325 MG 05/12/2020 12:00:00 AM EST 1.0 {tablet_as_ needed} active Sproul 10-325 MG eCW1 ([facility]) Acetaminophen 325 MG / Hydrocodone Samira trate 10 MG Oral Tablet [Sproul] Sproul 10-325 MG Sproul 10-325 MG 04/07/2020 12:00:00 AM EDT 1.0 {tablet_as_ needed} active Sproul 10-325 MG eCW1 ([facility]) Acetaminophen 325 MG / Hydrocodone Samira trate 10 MG Oral Tablet [Sproul] Sproul 10-325 MG Sproul 10-325 MG 2020 12:00:00 AM EDT 1.0 {tablet_as_ needed} active Sproul 10-325 MG eCW1 ([facility]) Acetaminophen 325 MG / Hydrocodone Samira trate 10 MG Oral Tablet [Sproul] Sproul 10-325 MG Sproul 10-325 MG 2020 12:00:00 AM EDT 1.0 {tablet_as_ needed} active Sproul 10-325 MG eCW1 ([facility]) Acetaminophen 325 MG / Hydrocodone Samira trate 10 MG Oral Tablet [Sproul] Sproul 10-325 MG Sproul 10-325 MG 12/13/2019 12:00:00 AM EDT 1.0 {tablet_as_ needed} active Sproul 10-325 MG eCW1 ([facility]) Acetaminophen 325 MG / Hydrocodone Samira trate 10 MG Oral Tablet [Sproul] Sproul 10-325 MG Sproul 10-325 MG 11/10/2019 12:00:00 AM EDT active 1 tablet as needed eCW1 ([facility]) Acetaminophen 325 MG / Hydrocodone Samira trate 10 MG Oral Tablet [Sproul] Sproul 10-325 MG Sproul 10-325 MG 10/11/2019 12:00:00 AM EDT active 1 tablet as needed eCW1 ([facility]) Acetaminophen 325 MG / Hydrocodone Samira trate 10 MG Oral Tablet [Sproul] Sproul 10-325 MG Sproul 10-325 MG 09/15/2019 12:00:00 AM EDT active 1 tablet as needed eCW1 ([facility]) Acetaminophen 325 MG / Hydrocodone Samira trate 10 MG Oral Tablet [Sproul] Sproul 10-325 MG Sproul 10-325 MG 09/15/2019 12:00:00 AM EDT active 1 tablet as needed eCW1 ([facility]) Acetaminophen 325 MG / Hydrocodone Samira trate 10 MG Oral Tablet [Sproul] Sproul 10-325 MG Sproul 10-325 MG 08/10/2019 12:00:00 AM EST active 1 tablet as needed eCW1 ([facility]) Ciprofloxacin 500 MG Oral Tablet Ciprofloxacin HCl 500 MG Ciprofloxacin HCl 500 MG 07/21/2019 12:00:00 AM EST suspended Ciprofloxacin HCl 500 MG eCW1 ([facility]) Ciprofloxacin 500 MG Oral Tablet Ciprofloxacin HCl 500 MG Ciprofloxacin HCl 500 MG 07/21/2019 12:00:00 AM EST active 1 tablet 1 hour prior to your cystoscopy eCW1 ([facility]) Ciprofloxacin 500 MG Oral Tablet Ciprofloxacin HCl 500 MG Ciprofloxacin HCl 500 MG 07/21/2019 12:00:00 AM EST suspended Ciprofloxacin HCl 500 MG eCW1 ([facility]) Ciprofloxacin 500 MG Oral Tablet Ciprofloxacin HCl 500 MG Ciprofloxacin HCl 500 MG 07/21/2019 12:00:00 AM EST suspended 1 tablet 1 hour prior to your cystoscopy eCW1 ([facility]) Ciprofloxacin 500 MG Oral Tablet Ciprofloxacin HCl 500 MG Ciprofloxacin HCl 500 MG 07/21/2019 12:00:00 AM EST suspended Ciprofloxacin HCl 500 MG eCW1 ([facility]) Ciprofloxacin 500 MG Oral Tablet Ciprofloxacin HCl 500 MG Ciprofloxacin HCl 500 MG 07/21/2019 12:00:00 AM EST suspended Ciprofloxacin HCl 500 MG eCW1 ([facility]) Ciprofloxacin 500 MG Oral Tablet Ciprofloxacin HCl 500 MG Ciprofloxacin HCl 500 MG 07/21/2019 12:00:00 AM EST suspended Ciprofloxacin HCl 500 MG eCW1 ([facility]) Ciprofloxacin 500 MG Oral Tablet Ciprofloxacin HCl 500 MG Ciprofloxacin HCl 500 MG 07/21/2019 12:00:00 AM EST suspended 1 tablet 1 hour prior to your cystoscopy eCW1 ([facility]) Ciprofloxacin 500 MG Oral Tablet Ciprofloxacin HCl 500 MG Ciprofloxacin HCl 500 MG 07/21/2019 12:00:00 AM EST suspended Ciprofloxacin HCl 500 MG eCW1 ([facility]) Acetaminophen 325 MG / Hydrocodone Samira trate 10 MG Oral Tablet [Sproul] Sproul 10-325 MG Sproul 10-325 MG 07/12/2019 12:00:00 AM EST active 1 tablet as needed eCW1 ([facility]) Acetaminophen 325 MG / Hydrocodone Samira trate 10 MG Oral Tablet [Sproul] Sproul 10-325 MG Sproul 10-325 MG 07/12/2019 12:00:00 AM EST active 1 tablet as needed eCW1 ([facility]) Acetaminophen 325 MG / Hydrocodone Samira trate 10 MG Oral Tablet [Sproul] Sproul 10-325 MG Sproul 10-325 MG 06/11/2019 12:00:00 AM EST active 1 tablet as needed eCW1 ([facility]) Acetaminophen 325 MG / Hydrocodone Samira trate 10 MG Oral Tablet [Sproul] Sproul 10-325 MG Sproul 10-325 MG 05/14/2019 12:00:00 AM EST active 1 tablet as needed eCW1 ([facility]) Insurance Providers Payer name Policy type / Coverage type Policy ID Covered green party ID Covered green party's relationship to ayala Policy Ayala Plan Information [facility] [id number] SP [id number] [facility] [id number] SP [id number] SELF PAY ONLY [id number] SP [id number] Managed Care [facility] Community Plan P [id number] S [id number] Medicaid S [id number] S [id number] MEDICAID [id number] SP [id number] Medicaid P [id number] S [id number] [facility] O [id number] S [id number] ANS-Medicaid [id number] ANSI-Medicaid [id number] ANSI-Medicaid [id number] ANSI-Medicaid [id number] ANS-Medicaid [id number] [facility] [id number] ANSI-Medicaid [id number] ANSI-Medicaid [id number] ANSI-Medicaid [id number] ANSI-Medicaid [id number] ANSI-Medicaid [id number] ANSI-Medicaid [id number] ANSI-Medicaid [id number] ANSI-Medicaid [id number] ANSI-Medicaid [id number] ANSI-Medicaid [id number] ANSI-Medicaid [id number] ANSI-Medicaid [id number] ANSI-Medicaid [id number] ANSI-Medicaid [id number] ANSI-Medicaid [id number] ANSI-Medicaid [id number] ANSI-Medicaid [id number] ANSI-Medicaid [id number] ANSI-Medicaid [id number] ANSI-Medicaid [id number] ANSI-Medicaid [id number] [facility]-Medicaid [id number] [facility]-Medicaid [id number] ANSI-Medicaid [id number] [facility]-Medicaid [id number] [facility]-Medicaid [id number] [facility]-Medicaid [id number] [facility]-Medicaid [id number] MEDICAID M [id number] S [id number] PENDING [employer] INSURANCE [id number] SP [id number] [facility] (HMO) Self BS [place] Commercial Family Dependent SELF PAY UNAVAILABLE UNAVAILA BLE BCBS [place] PPO 302/[phone] [id number] Problems, Conditions, and Diagnoses Code Display Name Description Problem Type Effective Dates Data Source(s) F17.200 Nicotine dependence, unspecified, uncomp licated Nicotine dependence, unspecified, uncomplicated 07/21/2019 12:39:11 PM [facility] V70.0 Health Screening Health Screening 07/21/2019 12 :39:11 PM [facility] [id number] Benign prostatic hyperplasia without low er urinary tract symptoms Benign prostatic hyperplasia without lower urinary tract symptoms 07/21/2019 12:39:11 PM [facility] [id number] Hematuria, unspecified Hematuria, unspecified 07/21/2019 12:39:11 PM [facility] N20.0 Kidney stone Kidney stone Problem 07/21/2019 12:00:00 A M EST eCW1 ([facility]) N20.0 Kidney stone Kidney stone Problem 07/21/2019 12:00:00 A M EST eCW1 ([facility]) Surgeries/Procedures Procedure Description Date Indications Data Source(s) PHYSICIAN TELEPHONE EVALUATION 11-20 MIN 10/11/2019 12 :00:00 AM EDT eCW1 ([facility]) CYSTOSCOPY AND TREATMENT 07/30/2019 12:00:00 AM EST eCW1 ([facility]) ESTABILISHED PATIENT [facility] FACILITY CHARGE 020 12:00:00 AM EST eCW1 ([facility]) Results ID Date Data Source [id number] 05/29/2020 12:00:00 AM EST [facility] Name Value Range Interpretation Code Description Data Delisa rce(s) Supporting Document(s) 2019-nCoV RNA XXX RHIANNON+probe-Imp [facility] This lab was ordered by [facility] and reported by [employer] ID Date Data Source [id number] 07/21/2019 11:34:25 AM [facility] Measurements & CalculationsHeight: 68 inches (5 ft. 8 in.) 172.72 cm Weight: 187 pounds 85 kg Body Mass Index (BMI): 28.54BMI Interpretation: OverweightBody Surface Area (BSA): 1.99Weight Management Education Done (Nutrition/Physical Activity)Vital SignsTemperature: 98.1FPulse Rate: 82 beats/minuteRespiratory Rate: 17 respirations/minuteBlood Pressure: 125/85 O2 Saturation: 93% Vital Signs performed by: Linda King MA, July 21, 2019 11:59 AMInitial Intake Information from: patientRoom #: 13Infectious Disease- Travel Have you or your sexual partner travelled outside of the country recently? NoSmoking, Tobacco or Smoke Exposure StatusSmoke Status: current every day smokerTobacco Use: YesAdv to Quit: YesPassive Smoke Exposure: YesHealthcare HistorySince your last office visit...Have you been admitted to the hospital? Yes - kidney stone- SMCHave you been to an emergency room (ER) or urgent care clinic? Yes - UC- Abd painHave you seen another healthcare provider? NoHave you seen a dentist? NoIntake performed by: Linda King MA, July 21, 2019 11:38 AMRate Your HealthIn general, would you say your health is? FairPain AssessmentAre you currently having any pain which... You would like your provider to address? No Affects your activity level? NoDepression Screening - PHQ-2Over the last two weeks, have you... Had little interest or pleasure in doing things? Nearly every day Been feeling down, depressed, or hopeless? More than half the days PHQ-2 Score: 5Anxiety Screening - ALISSON-2Over the last two weeks, have you been... Feeling nervous, anxious, or on edge? Several days Unable to stop or control worrying? Nearly every day ALISSON-2 Score: 4Generalized Anxiety Disorder 7-Item Screening (ALISSON-7)Answer Guide:0 = Not at all1 = Several days2 = Over half the days3 = Nearly every dayOver the last 2 weeks, how often have you been bothered by the following problems?Feeling nervous, anxious, or on edge: 1Not being able to stop or control worryinWorrying too much about different things: 3Trouble relaxinBeing so restless that it's hard to sit still: 0Becoming easily annoyed or irritable: 0Feeling afraid as if something awful might happen: 1Answer Guide:0 = Not difficult at all1 = Somewhat difficult2 = Very difficult3 = Extremely difficultHow difficult have these made it for you to do your work, take care of things at home, or get along with other people? 2GAD-7 Screening Results ALISSON-2 Score: 4GAD-7 Score: 10Functional Impairment: Very difficultRecommendation: Moderate anxietyPHQ-9 1. Over the last 2 weeks, patient reports the following frequency of symptoms: a. Little interest or pleasure in doing things -Nearly every day b. Feeling down, depressed, or hopeless -More than half the days c. Trouble falling asleep, staying asleep, or sleeping too much -Not at all d. Feeling tired or having little energy -Several days e. Poor appetite or overeating -Several days f. Feeling bad about yourself, feeling that you are a failure, or feeling that you have let yourself or your family down -Nearly every day g. Trouble concentratin g on things such as reading the newspaper or watching television -Several days h. Moving or speaking so slowly that other people could have noticed. Or being so fidgety or restless that you have been moving around a lot more than usual -Several days i. Thinking that you would be better off or that you want to hurt yourself in some way -Not at all2. If you checked off any problems, how difficult have these problems made it for you to do your work, take care of things at home, or get along with other people? -Somewhat DifficultToday's PHQ-9 Results Score: 12 Severity: Moderate Diagnosis Recommendation: Other Depression Functional Impairment: Somewhat DifficultDepression Screening Follow-Up ActionToday's Follow-Up Action Depression follow-up done. Follow-Up Action: Patient RefusedScreening, Brief Intervention, & Referral to Treatment (SBIRT)Pre-Screening Questions How many times have you have 5 or more drinks in a day? 0How many times have you used an illegal drug or used a prescription medication for a non-medical reason? 0Performed by: Linda King MA, July 21, 2019 11:44 AMPatient History Medical History:DepressionSurgical History:No known surgical historyFamily History:Cancer - Prostate (Father)Cancer - Skin (Mother)Social/Personal History: Smoking Status: current every day smokerAdvised to Quit/Tobacco Education: YesChief ComplaintHDHistory of Present Illness (HPI)59 yo male patient here today for Hospital discharge follow up. Pt states he had kidney stones. PT states he has blood in urine since leaving the hospital. Pt states while using the restroom he has a litle pain while urinatingPt states was referred to urologist. Pt states has appointment set for . . Pt denies abdominal pain, dizziness or SOB at this time. HPI performed by: Dayana VALDEZ, July 21, 2019 12:07 PMTransitions of Care InboundMedication Reconciliation & ReviewMedication List was reviewed and/or updated during this visit, including review of any swqa-ehz-hjuyqph medications, herbal therapies, and/or supplements.Allergy Review Patient has no known allergies.Adult Preventive CareScreening Tobacco Screening: Smoking Status: current every day smoker (07/21/2019) Advised to Quit: Yes (07/21/2019)Labs/Meds/Other Counseling- Nutrition and Physical Activity:BMI Interpretation: Overweight (07/21/2019) Counseling: Done (07/21/2019) Physical Activity: Done (07/21/2019)Review of Systems General: Denies loss of appetite, chills, dizziness, fatigue, fever, continued fever, headache, feeling ill, sweats, night sweats, sleep disturbances, weight loss. Eyes: Denies blurring of vision, double vision, ir ritation, discharge, vision loss, eye pain, eye swelling, droopy eyelid, sensitivity to light, redness, itching. Ears/Nose/Throat: Denies earache, ear discharge, ringing in ears, decreased hearing, nasal congestion, nosebleeds, runny nose, sore throat, hoarseness, difficulty swallowing, dry mouth, tooth pain, bleeding gums, swollen glands. Cardiovascular: Denies chest pain, palpitations, feeling faint, trouble breathing w/exertion, SOB upon lying down, SOB at night, peripheral edema, elevated blood pressure, decreased heart rate. Respiratory: Denies cough, difficulty breathing, shortness of breath, excessive sputum, coughing up blood, wheezing, chest pain. Gastrointestinal: Denies nausea, vomiting, bleeding, burning, itching, irritation, cramps, diarrhea, constipation. Genitourinary: Complains of blood in urine. Denies urinary incontinence, pain with urination, burning with urination, urinary frequency, urinary hesitancy, urinary urgency, urinary urgency at night, incomplete emptying. Musculoskeletal: Denies back pain, joint pain, leg pain, joint swelling, body aches, muscle aches, muscle cramps, muscle weakness, stiffness, recent injury. Skin: Denies rash, hives, redness, itching, dryness, nail changes, suspicious lesions, athlete's foot, rash on palms, rash on bottom of feet. Neurologic: Denies muscle impairment, weakness, numbness/tingling, seizures, slurred speech, feeling faint, tremors, vertigo, paralysis on one side, paralysis on both sides. Psychiatric: Denies depression, anxiety, memory loss, mental disturbance, suicidal ideation, homicidal ideation, hallucinations, paranoia, feeling stressed, hearing voices. Endocrine: Denies cold intolerance, heat intolerance, excessive thirst, excessive hunger, excessive urination, weight loss, weight gain. Physical ExamGeneral Appearance: well nourished, well hydrated, no acute distressEyes, External: conjunctivae and lids normal, EOMIRespiratory, Auscultation: clear to auscultation bilaterally; no rales, rhonchi, or wheezesRespiratory, Effort: no intercostal retractions or use of accessory musclesCardiovascular, Auscultation: S1, S2 audible; no murmur, rub, or gallop; RRRPeripheral Circulation: no clubbing, cyanosis, edema, or varicositiesAbdomen: soft, non-tender, no masses, bowel sounds normalGait & Station: normalSkin, Inspection: no rashes, lesions, or ulcerationsOrientation: oriented to time, place, and personMood & Affect: no depression, anxiety, or agitationJudgment & Insight: intactCare Management Plan Transitions of CareInboundRate Your HealthIn general, would you say your health is? FairAssessment & Plan Problems:Added: Hematuria, unspecified (MQK75-X76.9) Assessment: Pt has appointment to see Dr Covarrubias 07/30 Instructions: Please try to maintain adequate fluid intake. Please keep your appointment with your UrologistNicotine dependence, unspecified, uncomplicated (RGM87-V81.200) Assessment: Instructions: Please try to cut back on your smoking with a goal to quit. Please let us know if you need assistance in doing so.Health Screening (ICD-V70.0) (IXA90-V59.9) Assessment: Instructions: We have ordered labs for you today. Please return prior to your next visit to have labs drawn. Please fast for 8-10 hours prior.Hematuria, unspecified (GGZ14-B39.9) Assessment: Pt has appointment to see Dr Covarrubias 07/30 Instructions: Please try to maintain adequate fluid intake. Please keep your appointment with your UrologistBenign prostatic hyperplasia without lower urinary tract symptoms (GGE09-G44.0) Assessment: Instructions: Please continue medication as prescribed. Please c ontinue to follow with urologist as scheduled.Assessment not Saved Hematuria; unspecified (YWR99-I98.9): Comment OnlyPt has appointment to see Dr Covarrubias 07/30Instructions: Please try to maintain adequate fluid intake. Please keep your appointment with your UrologistPatient Instructions/Care Plan: Hematuria- unspecified: Please try to maintain adequate fluid intake. Please keep your appointment with your UrologistNicotine dependence- unspecified- uncomplicated: Please try to cut back on your smoking with a goal to quit. Please let us know if you need assistance in doing so.Health Screening: We have ordered labs for you today. Please return prior to your next visit to have labs drawn. Please fast for 8-10 hours prior.Hematuria- unspecified: Please try to maintain adequate fluid intake. Please keep your appointment with your UrologistBenign prostatic hyperplasia without lower urinary tract symptoms: Please continue medication as prescribed. Please continue to follow with urologist as scheduled . Plan developed in collaboration with patient and/or familyMedications:FLOMAX 0.4 MG ORAL CAPSULEQUETIAPINE FUMARATE 200 MG ORAL TABLETQUETIAPINE FUMARATE 100 MG ORAL TABLETLITHIUM CARBONATE 300 MG ORAL TABLETHYDROCODONE-ACETAMINOPHEN 5-325 MG ORAL TABLETALPRAZOLAM 0.25 MG ORAL TABLETMedication Changes:Added: LITHIUM CARBONATE 300 MG ORAL TABLET-bid for 30 daysQUETIAPINE FUMARATE 100 MG ORAL TABLET-qamQUETIAPINE FUMARATE 200 MG ORAL TABLET-bid qhsFLOMAX 0.4 MG ORAL CAPSULE-1/2 hour acOrders:COMP METABOLIC PANEL [CPT-14281] CBC W/DIFF [CPT-66425] HgBA1c [CPT-24438] LIPID PANEL [CPT-85985] T SH [CPT-90287] T-4 free [CPT-56840] Vitamin D 250H Unspecified [CPT-33180] URINALYSIS [CPT-46500] PROSTATE CANCER SCREENING; PSA TEST [CPT-G0103] Adult - Ofc Vst, NEW, Level III [CPT-34734] Follow-Up Return to clinic: 4-6 weeks for follow up. Clinical Visit Summary Completed Name Value Range Interpretation Code Description Data Delisa rce(s) Supporting Document(s) Procedure Social History Code Duration Value Status Description Data Source(s ) Smoking 04/07/2020 12:00:00 AM EDT Current Smoker completed Curre nt Smoker eCW1 ([facility]) Smoking 04/07/2020 12:00:00 AM EDT Current Smoker completed Curre nt Smoker eCW1 ([facility]) Smoking 04/07/2020 12:00:00 AM EDT Current Smoker completed Curre nt Smoker eCW1 ([facility]) Smoking 2020 12:00:00 AM EDT Current Smoker completed Curre nt Smoker eCW1 ([facility]) Smoking 2020 12:00:00 AM EDT Current Smoker completed Curre nt Smoker eCW1 ([facility]) Smoking 10/11/2019 12:00:00 AM EDT Current Smoker completed Curre nt Smoker eCW1 ([facility]) Vital Signs ID Date Data Source UNK Name Value Range Interpretation Code Description Data Source(s) Diastolic blood pressure 104 mm[Hg] 104 mm[Hg] eCW1 ([facility]) Systolic blood pressure 178 mm[Hg] 178 mm[Hg] e CW1 ([facility]) Body temperature 98.3 [degF] 98.3 [degF] eCW1 ( [facility]) Respiratory rate 18 /min 18 /min eCW1 ([facility]) Heart rate 89 /min 89 /min eCW1 ([facility]) Body mass index (BMI) [Ratio] 28.38 kg/m2 28.38 kg/m2 eCW1 ([facility]) Body height 67 [in_i] 67 [in_i] eCW1 ([facility]) Body weight 181.2 [lb_av] 181.2 [lb_av] eCW1 ([facility]) Diastolic blood pressure 94 mm[Hg] 94 mm[Hg] eCW1 ([facility]) Systolic blood pressure 155 mm[Hg] 155 mm[Hg] e CW1 ([facility]) Body temperature 99.0 [degF] 99.0 [degF] eCW1 ( [facility]) Respiratory rate 18 /min 18 /min eCW1 ([facility]) Heart rate 88 /min 88 /min eCW1 ([facility]) Body mass index (BMI) [Ratio] 27.19 kg/m2 27.19 kg/m2 eCW1 ([facility]) Body height 67 [in_i] 67 [in_i] eCW1 ([facility]) Body weight 173.6 [lb_av] 173.6 [lb_av] eCW1 ([facility]) Diastolic blood pressure mm[Hg] eCW1 ([facility]) Systolic blood pressure 128 mm[Hg] 128 mm[Hg] e CW1 ([facility]) Body temperature 98.3 [degF] 98.3 [degF] eCW1 ( [facility]) Respiratory rate 17 /min 17 /min eCW1 ([facility]) Heart rate 92 /min 92 /min eCW1 ([facility]) Body mass index (BMI) [Ratio] 29.13 kg/m2 29.13 kg/m2 W1 ([facility]) Body height 67 [in_us] 67 [in_us] eCW1 ([facility]) Body weight Measured 186 [lb_av] 186 [lb_av] eC W1 ([facility]) Body mass index (BMI) [Ratio] 25.8 kg/m2 25.8 k g/m2 MEDENT ([facility]) Body height 68 [in_i] 68 [in_i] MEDENT ([facility]) 5'8" Body weight 170.00 [lb_av] 170.00 [lb_av] MEDEN T ([facility]) Body temperature 97.5 [degF] 97.5 [degF] MEDENT ([facility]) Oxygen saturation in Arterial blood by Pulse oximetry 96 % 96 % MEDENT ([facility]) Respiratory rate 24 /min 24 /min MEDENT ( [facility]) Heart rate 98 /min 98 /min MEDENT ([facility]) Diastolic blood pressure 104 mm[Hg] 104 mm[Hg] MEDENT ([facility]) Systolic blood pressure 148 mm[Hg] 148 mm[Hg] M EDENT ([facility]) Diastolic blood pressure 93 mm[Hg] 93 mm[Hg] eCW1 ([facility]) Systolic blood pressure 150 mm[Hg] 150 mm[Hg] e CW1 ([facility]) Body temperature 98.1 [degF] 98.1 [degF] eCW1 ( [facility]) Respiratory rate 18 /min 18 /min eCW1 ([facility]) Heart rate 113 /min 113 /min eCW1 ([facility]) Body mass index (BMI) [Ratio] 28.75 kg/m2 28.75 kg/m2 eCW1 ([facility]) Body height [in_us] eCW1 ([facility]) Body weight Measured 183.6 [lb_av] 183.6 [lb_av ] eCW1 ([facility]) Patient Treatment Plan of Care Planned Activity Planned Date Details Description Data Source (s) Acetaminophen 325 MG / Hydrocodone Bitartrate 10 MG Or al Tablet [[place]] 06/12/2020 12:00:00 AM EST eCW1 ([facility]) Acetaminophen 325 MG / Hydrocodone Bitartrate 10 MG Or al Tablet [[place]] 05/12/2020 12:00:00 AM EST eCW1 ([facility]) Acetaminophen 325 MG / Hydrocodone Bitartrate 10 MG Or al Tablet [[place]] 04/07/2020 12:00:00 AM EDT eCW1 ([facility]) Acetaminophen 325 MG / Hydrocodone Bitartrate 10 MG Or al Tablet [[place]] 2020 12:00:00 AM EDT eCW1 ([facility]) Acetaminophen 325 MG / Hydrocodone Bitartrate 10 MG Or al Tablet [[place]] 2020 12:00:00 AM EDT eCW1 ([facility]) Acetaminophen 325 MG / Hydrocodone Bitartrate 10 MG Or al Tablet [[place]] 12/13/2019 12:00:00 AM EDT eCW1 ([facility]) Acetaminophen 325 MG / Hydrocodone Bitartrate 10 MG Or al Tablet [[place]] 11/10/2019 12:00:00 AM EDT eCW1 ([facility]) Acetaminophen 325 MG / Hydrocodone Bitartrate 10 MG Or al Tablet [[place]] 10/11/2019 12:00:00 AM EDT eCW1 ([facility]) Acetaminophen 325 MG / Hydrocodone Bitartrate 10 MG Or al Tablet [[place]] 09/15/2019 12:00:00 AM EDT eCW1 ([facility]) Acetaminophen 325 MG / Hydrocodone Bitartrate 10 MG Or al Tablet [[place]] 09/15/2019 12:00:00 AM EDT eCW1 ([facility]) Acetaminophen 325 MG / Hydrocodone Bitartrate 10 MG Or al Tablet [[place]] 08/10/2019 12:00:00 AM EST eCW1 ([facility]) Ciprofloxacin 500 MG Oral Tablet 07/21/2019 12:00:00 AM EST eCW1 ([facility]) Acetaminophen 325 MG / Hydrocodone Bitartrate 10 MG Or al Tablet [[place]] 07/12/2019 12:00:00 AM EST eCW1 ([facility]) Acetaminophen 325 MG / Hydrocodone Bitartrate 10 MG Or al Tablet [[place]] 06/11/2019 12:00:00 AM EST eCW1 ([facility]) Acetaminophen 325 MG / Hydrocodone Bitartrate 10 MG Or al Tablet [[place]] 05/14/2019 12:00:00 AM EST eCW1 ([facility])
--- OUTSIDE RECORDS SUMMARY | 2020-07-04 17:06 | CCD ---
Author Author [facility] [employer] Organization [facility] [employer] Address Unknown Phone Unavailable Care Team Providers Care Career Services Officer Name Role Phone Amy Rodriguez Unavailable PROBLEMS Type Condition ICD9-CM Code [id number] Code Onset Dates Condition S tatus SNOMED Code Notes Problem Other chronic pain G89.29 Active 40363024 Problem Kidney stone N20.0 Active 45952184 Problem Alcohol abuse 305.00 Active 24499763 Problem Dysthymic disorder 300.4 Active 26465481 Problem Low back pain M54.5 Active 449097065 ALLERGIES No Known Allergies ENCOUNTERS from 1960 to 2020-06-12 Encounter Location Date Provider Diagnosis [facility] [address] [place] [phone] May, Amy Rodriguez Low back pain M54.5 IMMUNIZATIONS No Information SOCIAL HISTORY Tobacco Use: Social History Observation Description Date Details (start date - stop date) Current Smoker Sex Assigned At : Social History Observation Description Sex Assigned At Unknown Language: Question Answer Notes Languages spoken: Tunisian Zoroastrianism: Question Answer Notes Zoroastrianism 21 Taoism Alcohol Screening: Question Answer Notes Did you [...] TraZODone HCl 50 MG Orally Not-T aking Zaleplon 10 MG 1 capsule at bedtime as needed Orally Once a day Active Hydrocodone-Acetaminophen 10-325 MG 1 tablet as needed Orally q8h prn mdd3 for 30 day(s) Mar, Not-Taking Clonazepam 1 MG 1 tablet Orally Once a day Not-Taking Adderall 20 MG 1 tablet Orally Twice a day Not-Taking Ketorolac Tromethamine 10 MG 1 tablet with food or mil k as needed Orally every 6 hrs for 5 day(s) Jun, Not-Taking Viibryd 10 MG 1 tab Orally Daily Act ambrose Paxil 20 mg 1 tablet in the morning Orally Once a day for 30 day(s) May, Not-Taking Ciprofloxacin HCl 500 MG 1 tablet 1 hour prior to you r cystoscopy Orally Once for 1 days Jun, Not-Taking Rexulti 0.25 MG 1 tablet Orally Once a day Active Dextroamphetamine Sulfate 20 MG 1 tablet Orally Three times a day Active Ginger Blue Carbonate 150 MG 1 capsule Orally Once a day Active Zofran 4 MG 1 tab Orally Twice a day as needed for nausea Feb, Not-Taking Alprazolam 1 mg 1 tablet Orally Twice a day Active [place] 10-325 MG 1 tablet as needed Orally every 6 hrs prn mdd4 f or 30 days May, Active PROCEDURES No Information RESULTS No Results REASON FOR VISIT Refill Hydrocodone MEDICAL (GENERAL) HISTORY Type Description Date Medical [...] History CYSTO STENT REMOVAL 07/30/2019 Hospitalization History [facility] inpatient admission 09/2017 Goals Section No Information Health Concerns No Information MEDICAL EQUIPMENT No Information MENTAL STATUS No Information FUNCTIONAL STATUS No Information ASSESSMENTS Encounter Date Diagnosis Assessment Notes Treatment Notes Treatm ent Clinical Notes May, Low back pain (ICD-10 - M54.5) PLAN OF TREATMENT Medication Medication Name Sig Start Date Stop Date [place] 10-325 MG 1 tablet as needed Orally every 6 hrs pr n mdd4 for 30 days May, Next Appt Details Provider Name:Amy Rodriguez, 2020-07-07 02 :30:00 PM, [address] [place] [address], [phone], Insurance Providers Payer Name Payer Address Payer Phone Insured Name Patient Relati onship to Insured Coverage Start Date Coverage End Date [facility] [employer] [facility] [place] [address] [facility] [id number] ELVA DUTTON self
--- OUTSIDE RECORDS SUMMARY | 2020-07-04 17:06 | CCD ---
Author Author [employer] Organization [employer] Address Unknown Phone Unavailable Care Team Providers Care Maintenance Technician 3Rd Shift Name Role Phone Amy Rodriguez Unavailable PROBLEMS Type Condition ICD9-CM Code BHF38-FV Code Onset Dates Condition S tatus SNOMED Code Notes Problem Other chronic pain G89.29 Active 50753499 Problem Kidney stone N20.0 Active 55958283 Problem Alcohol abuse 305.00 Active 49268547 Problem Dysthymic disorder 300.4 Active 19559816 Problem Low back pain M54.5 Active 230252169 ALLERGIES No Known Allergies ENCOUNTERS from 1960 to 2020-04-10 Encounter Location Date Provider Diagnosis [facility] [address] [place] [phone] Mar, Amy Rodriguez Low back pain M54.5 and Chronic prescrip tion opiate use Z79.891 IMMUNIZATIONS No Information SOCIAL HISTORY Tobacco Use: Social History Observation Description Date Details (start date - stop date) Current Smoker Sex Assigned At : Social History Observation Description Sex Assigned At Unknown Language: Question Answer Notes Languages spoken: South African Buddhist: Question Answer Notes Buddhist 21 [employer] Alcohol Screening: Question Answer Notes Did you [...] you interested in quitting? Thinking about quitting Bradleyi ng to cut back. Counseled the patient on smoking cessation, education provid ed 2020 REASON FOR REFERRAL No Information VITAL SIGNS Weight 181.2 lbs Mar, Height 67 in Mar, BMI 28.38 kg/m2 Mar, Heart Rate 89 /min Mar, Respiratory Rate 18 /min Mar, Temperature 98.3 degrees Fahrenheit Mar, Oximetry 97% Mar, Blood pressure systolic 178 mm Hg Mar, Blood pressure diastolic 104 mm Hg Mar, MEDICATIONS Medication SIG (Take, Route, Frequency, Duration) Start Date En d Date Status TraZODone HCl 50 MG Orally Not-Taki ng Zaleplon 10 MG 1 capsule at bedtime [...] Viibryd 10 MG 1 tab Orally Daily Active Paxil 20 mg 1 tablet in the morning Orally Once a da y for 30 day(s) May, Not-Taking Ciprofloxacin HCl 500 MG 1 tablet 1 hour prior to you r cystoscopy Orally Once for 1 days Jun, Not-Taking Rexulti 0.25 MG 1 tablet Orally Once a day Active Dextroamphetamine Sulfate 20 MG 1 tablet Orally Three times a day Active [place] Carbonate 150 MG 1 capsule Orally Once a day Active Zofran 4 MG 1 tab Orally Twice a day as needed for nausea Feb, Not-Taking Alprazolam 1 mg 1 tablet Orally Twice a day Active [place] 10-325 MG 1 tablet as needed Orally every 6 hrs pr n mdd4 for 30 days Mar, Active PROCEDURES No Information RESULTS No Results REASON FOR VISIT medication management MEDICAL (GENERAL) HISTORY Type Description Date Medical [...] History CYSTO STENT REMOVAL 07/30/2019 Hospitalization History [facility] inpatient admission 09/2017 Goals Section No Information Health Concerns No Information MEDICAL EQUIPMENT No Information MENTAL STATUS No Information FUNCTIONAL STATUS No Information ASSESSMENTS Encounter Date Diagnosis Notes Mar, Chronic prescription opiate use (ICD-10 - Z79.891) Mar, Low back pain (ICD-10 - M54.5) PLAN OF TREATMENT Medication Medication Name Sig Start Date Stop Date [place] 10-325 MG 1 tablet as needed Orally every 6 hrs pr n mdd4 for 30 days Mar, Treatment Notes Assessment Notes Clinical Notes Low back pain ISTOP registry reviewed and demonstrates complliance. (Ref # ) Brings in medications which is appropriate for what was dispensed. Recent urine toxicology reviewed. No unauthorized medications. No illicit substances and prescribed medications were present., Risks of narcotic/opiod medications includes but is not limited to risk of dependance/development of addiction, mood disturbance and depression, osteoporosis, hormonal and labidal changes, respiratory depression and . Patient is advised NOT to DRIVE or drink ALCOHOL while on these medications Next Appt Details 3 Months Reason:medication management/ur ine toxicology Provider Name:Amy Michael, 2020-07-07 02 :30:00 PM, [address] [place] [address], [phone], Follow Up:3 Monthsmedication management/urine toxicology Insurance Providers Payer Name Payer Address Payer Phone Insured Name Patient Relati onship to Insured Coverage Start Date Coverage End Date [facility] [employer] [facility] [address] [facility] [id number] ELVA DUTTON
--- OUTSIDE RECORDS SUMMARY | 2020-07-04 18:19 | CCD ---
Author Author [facility] Organization [facility] Address Unknown Phone Unavailable Care Team Providers Care Special Effects Makeup Artist Name Role Phone Gagan, A Dayana AREA SECRETARY Unavailable Unavailable Gagan, A Dayana AREA SECRETARY Unavailable Unavailable Gagan, A Dayana AREA SECRETARY Unavailable Unavailable Ggaan, A Dayana AREA SECRETARY Unavailable Unavailable Gagan, A Dayana AREA SECRETARY Unavailable Unavailable Gagan, A Dayana AREA SECRETARY Unavailable Unavailable Gagan, A Dayana AREA SECRETARY Unavailable Unavailable Gagan, A Dayana AREA SECRETARY Unavailable Unavailable Gagan, A Dayana AREA SECRETARY Unavailable Unavailable Gagan, A Dayana AREA SECRETARY Unavailable Unavailable Gagan, A Dayana AREA SECRETARY Unavailable Unavailable Gagan, A Dayana AREA SECRETARY Unavailable Unavailable Gagan, A Dayana AREA SECRETARY Unavailable Unavailable Gagan, A Dayana AREA SECRETARY Unavailable Unavailable Gagan, A Dayana AREA SECRETARY Unavailable Unavailable Gagan, A Dayana AREA SECRETARY Unavailable Unavailable Gagan, A Dayana AREA SECRETARY Unavailable Unavailable Gagan, A Dayana AREA SECRETARY Unavailable Unavailable Gagan, A Dayana AREA SECRETARY Unavailable Unavailable Gagan, A Dayana AREA SECRETARY Unavailable Unavailable Gagan, A Dayana AREA SECRETARY Unavailable Unavailable Gagan, A Dayana AREA SECRETARY Unavailable Unavailable Gagan, A Dayana AREA SECRETARY Unavailable Unavailable Gagan, A Dayana AREA SECRETARY Unavailable Unavailable Gagan, A Dayana AREA SECRETARY Unavailable Unavailable Gagan, A Dayana AREA SECRETARY Unavailable Unavailable Gagan, A Dayana AREA SECRETARY Unavailable Unavailable [facility] Unavailable Unavailable LORETA, [...] Unavailable LORETA, HARRISON PA Unavailable Unavailable LORETA, HARRSION PA Unavailable Unavailable LORETA, HARRISON PA Unavailable [...] LORETA, HARRISON PA Unavailable Unavailable Gagan, Dayana AREA SECRETARY AREA SECRETARY Unavailable Unavailable Re-disclosure Warning The records that [...] is protected by Article 27-F of the [facility] Public Health law. If you continue you may have access to information: Regarding HIV / AIDS; Provided by facilities licensed or operated by the [facility] Office of Mental Health; or Provided by the [facility] Office for People With Developmental Disabilities. If such information is present, then the following [facility] mandated warning applies: This information has [...] law may result in a fine or longterm sentence or both. A general authorization for [...] Date Indications Data Source(s ) Unknown [address] [facility] [place] [address] 06/09/2020 12:00:00 AM EST eCW1 ([facility]) Unknown [address] [facility] [place] [address] 05/11/2020 12:00:00 AM EST eCW1 ([facility]) Outpatient [address] [facility] [place] [address] 04/07/2020 12:00:00 AM EDT eCW1 ([facility]) Outpatient Attender: Dayana VALDEZ FP 03/09/2020 04:1 7:01 PM EDT [facility] Outpatient [address] [facility] [place] [address] 2020 12:00:00 AM EDT eCW1 ([facility]) Unknown [address] [facility] [place] [address] 2020 12:00:00 AM EDT eCW1 ([facility]) Unknown [address] [facility] [place] [address] 12/09/2019 12:00:00 AM EDT eCW1 ([facility]) Outpatient Attender: COURTNEY VALDEZ FP 11/30/2019 07:48:17 P [facility] [address] [place] [phone] 11/09/2019 12:00:00 AM EDT eCW1 ([facility]) [facility] [address] [place] [phone] 10/11/2019 12:00:00 AM EDT eCW1 ([facility]) [facility] [address] [place] [phone] 10/11/2019 12:00:00 AM EDT eCW1 ([facility]) [facility] [address] [place] [phone] 09/15/2019 12:00:00 AM EDT eCW1 ([facility]) [facility] [address] [place] [phone] 09/14/2019 12:00:00 AM EDT eCW1 ([facility]) Outpatient Attender: COURTNEY VALDEZ FP 08/31/2019 11:54:01 A M [facility] [address] [place] [address] 08/10/2019 12:00:00 AM EST eCW1 ([facility]) Outpatient Attender: COURTNEY DIEZ 08/09/2019 10:32:01 A M [facility] Outpatient Attender: COURTNEY DIEZ 07/30/2019 10:20:00 A M [facility] [address] [facility] [place] [address] 07/30/2019 12:00:00 AM EST eCW1 ([facility]) [facility] [address] [facility] [place], [facility] [address] 07/27/2019 12:00:00 AM EST eCW1 ([facility]) Outpatient Attender: Dayana DIEZ 07/25/2019 10:4 7:01 PM [facility] Outpatient Attender: COURTNEY VALDEZ FP 07/21/2019 03:00:00 P M [facility] Outpatient Attender: COURTNEY DIEZ 07/21/2019 02:58:01 P M [facility] Outpatient Attender: COURTNEY DIEZ 07/21/2019 02:57:00 P M [facility] Outpatient Attender: COURTNEY DIEZ 07/21/2019 12:40:06 P M [facility] Outpatient Attender: COURTNEY DIEZ 07/21/2019 11:47:00 A M [facility] Outpatient Attender: COURTNEY VALDEZ FP 07/21/2019 11:05:00 A M [facility] Outpatient Attender: Dayana DIEZ 07/21/2019 10:1 3:01 AM [facility] Outpatient Attender: COURTNEY DIEZ 07/21/2019 10:13:00 A M [facility] [address] [facility] [place] [address] 07/21/2019 12:00:00 AM EST eCW1 ([facility]) Outpatient Attender: SARA DIEZ 07/20/2019 04:45:00 PM EST [facility] Outpatient 07/19/2019 02:28:00 PM EST [facility] Imaging Outpatient Attender: HARRISON shabazz 07/14/2019 01:45:00 PM EST MEDENT ([facility]) [facility] [address] [place] [phone] 07/12/2019 12:00:00 AM EST eCW1 ([facility]) [facility] [address] [place] [phone] 06/21/2019 12:00:00 AM EST eCW1 ([facility]) [facility] [address] [place] [phone] 06/11/2019 12:00:00 AM EST eCW1 ([facility]) [facility] [address] [place] [phone] 05/14/2019 12:00:00 AM EST eCW1 ([facility]) Medications Medication Brand Name Start Date Product Form Dose Route Admi nistrative Instructions Pharmacy Instructions Status Indications Reaction Description Data Source(s) Acetaminophen 325 MG / Hydrocodone Samira trate 10 MG Oral Tablet [Shattuck] Shattuck 10-325 MG Shattuck 10-325 MG 06/12/2020 12:00:00 AM EST 1.0 {tablet_as_ needed} active Shattuck 10-325 MG eCW1 (formerly [facility]) Acetaminophen 325 MG / Hydrocodone Samira trate 10 MG Oral Tablet [Shattuck] Shattuck 10-325 MG Shattuck 10-325 MG 05/12/2020 12:00:00 AM EST 1.0 {tablet_as_ needed} active Shattuck 10-325 MG eCW1 (formerly [facility]) Acetaminophen 325 MG / Hydrocodone Samira trate 10 MG Oral Tablet [Shattuck] Shattuck 10-325 MG Shattuck 10-325 MG 04/07/2020 12:00:00 AM EDT 1.0 {tablet_as_ needed} active Shattuck 10-325 MG eCW1 (formerly [facility]) Acetaminophen 325 MG / Hydrocodone Samira trate 10 MG Oral Tablet [Shattuck] Shattuck 10-325 MG Shattuck 10-325 MG 2020 12:00:00 AM EDT 1.0 {tablet_as_ needed} active Shattuck 10-325 MG eCW1 (formerly [facility]) Acetaminophen 325 MG / Hydrocodone Samira trate 10 MG Oral Tablet [Shattuck] Shattuck 10-325 MG Shattuck 10-325 MG 2020 12:00:00 AM EDT 1.0 {tablet_as_ needed} active Shattuck 10-325 MG eCW1 (formerly [facility]) Acetaminophen 325 MG / Hydrocodone Samira trate 10 MG Oral Tablet [Shattuck] Shattuck 10-325 MG Shattuck 10-325 MG 12/13/2019 12:00:00 AM EDT 1.0 {tablet_as_ needed} active Shattuck 10-325 MG eCW1 (formerly [facility]) Acetaminophen 325 MG / Hydrocodone Samira trate 10 MG Oral Tablet [Shattuck] Shattuck 10-325 MG Shattuck 10-325 MG 11/10/2019 12:00:00 AM EDT active 1 tablet as needed eCW1 ([facility]) Acetaminophen 325 MG / Hydrocodone Samira trate 10 MG Oral Tablet [Shattuck] Shattuck 10-325 MG Shattuck 10-325 MG 10/11/2019 12:00:00 AM EDT active 1 tablet as needed eCW1 ([facility]) Acetaminophen 325 MG / Hydrocodone Samira trate 10 MG Oral Tablet [Shattuck] Shattuck 10-325 MG Shattuck 10-325 MG 09/15/2019 12:00:00 AM EDT active 1 tablet as needed eCW1 ([facility]) Acetaminophen 325 MG / Hydrocodone Samira trate 10 MG Oral Tablet [Shattuck] Shattuck 10-325 MG Shattuck 10-325 MG 09/15/2019 12:00:00 AM EDT active 1 tablet as needed eCW1 ([facility]) Acetaminophen 325 MG / Hydrocodone Samira trate 10 MG Oral Tablet [Shattuck] Shattuck 10-325 MG Shattuck 10-325 MG 08/10/2019 12:00:00 AM EST active 1 tablet as needed eCW1 ([facility]) Ciprofloxacin 500 MG Oral Tablet Ciprofloxacin HCl 500 MG Ciprofloxacin HCl 500 MG 07/21/2019 12:00:00 AM EST suspended Ciprofloxacin HCl 500 MG eCW1 ([facility]) Ciprofloxacin 500 MG Oral Tablet Ciprofloxacin HCl 500 MG Ciprofloxacin HCl 500 MG 07/21/2019 12:00:00 AM EST active 1 tablet 1 hour prior to your cystoscopy eCW1 ([facility]) Ciprofloxacin 500 MG Oral Tablet Ciprofloxacin HCl 500 MG Ciprofloxacin HCl 500 MG 07/21/2019 12:00:00 AM EST suspended Ciprofloxacin HCl 500 MG eCW1 ([facility]) Ciprofloxacin 500 MG Oral Tablet Ciprofloxacin HCl 500 MG Ciprofloxacin HCl 500 MG 07/21/2019 12:00:00 AM EST suspended 1 tablet 1 hour prior to your cystoscopy eCW1 ([facility]) Ciprofloxacin 500 MG Oral Tablet Ciprofloxacin HCl 500 MG Ciprofloxacin HCl 500 MG 07/21/2019 12:00:00 AM EST suspended Ciprofloxacin HCl 500 MG eCW1 ([facility]) Ciprofloxacin 500 MG Oral Tablet Ciprofloxacin HCl 500 MG Ciprofloxacin HCl 500 MG 07/21/2019 12:00:00 AM EST suspended Ciprofloxacin HCl 500 MG eCW1 ([facility]) Ciprofloxacin 500 MG Oral Tablet Ciprofloxacin HCl 500 MG Ciprofloxacin HCl 500 MG 07/21/2019 12:00:00 AM EST suspended Ciprofloxacin HCl 500 MG eCW1 ([facility]) Ciprofloxacin 500 MG Oral Tablet Ciprofloxacin HCl 500 MG Ciprofloxacin HCl 500 MG 07/21/2019 12:00:00 AM EST suspended 1 tablet 1 hour prior to your cystoscopy eCW1 ([facility]) Ciprofloxacin 500 MG Oral Tablet Ciprofloxacin HCl 500 MG Ciprofloxacin HCl 500 MG 07/21/2019 12:00:00 AM EST suspended Ciprofloxacin HCl 500 MG eCW1 ([facility]) Acetaminophen 325 MG / Hydrocodone Samira trate 10 MG Oral Tablet [Shattuck] Shattuck 10-325 MG Shattuck 10-325 MG 07/12/2019 12:00:00 AM EST active 1 tablet as needed eCW1 ([facility]) Acetaminophen 325 MG / Hydrocodone Samira trate 10 MG Oral Tablet [Shattuck] Shattuck 10-325 MG Shattuck 10-325 MG 07/12/2019 12:00:00 AM EST active 1 tablet as needed eCW1 ([facility]) Acetaminophen 325 MG / Hydrocodone Samira trate 10 MG Oral Tablet [Shattuck] Shattuck 10-325 MG Shattuck 10-325 MG 06/11/2019 12:00:00 AM EST active 1 tablet as needed eCW1 ([facility]) Acetaminophen 325 MG / Hydrocodone Samira trate 10 MG Oral Tablet [Shattuck] Shattuck 10-325 MG Shattuck 10-325 MG 05/14/2019 12:00:00 AM EST active 1 tablet as needed eCW1 ([facility]) Insurance Providers Payer name Policy type / Coverage type Policy ID Covered republican ID Covered republican's relationship to ayala Policy Ayala Plan Information [facility] [id number] SP [id number] [facility] [id number] SP [id number] SELF PAY ONLY [id number] SP [id number] Managed Care [facility] Community Plan P [id number] S [id number] Medicaid S [id number] MEDICAID [id number] SP [id number] Medicaid P [id number] S [id number] [facility] O [id number] S [id number] ANS-Medicaid [id number] ANSI-Medicaid [id number] ANSI-Medicaid [id number] ANSI-Medicaid [id number] ANS-Medicaid [id number] [facility] [id number] ANSI-Medicaid [id number] ANSI-Medicaid [id number] ANSI-Medicaid [id number] ANSI-Medicaid [id number] ANSI-Medicaid [id number] ANSI-Medicaid [id number] ANSI-Medicaid [id number] ANSI-Medicaid [id number] ANSI-Medicaid [id number] ANSI-Medicaid [id number] ANSI-Medicaid [id number] ANSI-Medicaid [id number] ANSI-Medicaid [id number] ANSI-Medicaid [id number] ANSI-Medicaid [id number] ANSI-Medicaid [id number] ANSI-Medicaid [id number] ANSI-Medicaid [id number] ANSI-Medicaid [id number] ANSI-Medicaid [id number] ANSI-Medicaid [id number] [facility]-Medicaid [id number] [facility]-Medicaid [id number] ANSI-Medicaid [id number] [facility]-Medicaid [id number] [facility]-Medicaid [id number] [facility]-Medicaid [id number] [facility]-Medicaid [id number] MEDICAID M [id number] PENDING [employer] [id number] SP [id number] [facility] [employer] (HMO) Self BS [place] Commercial Family Dependent SELF PAY UNAVAILABLE UNAVAILA BLE BCBS [place] PPO 302/307 [id number] Problems, Conditions, and Diagnoses Code Display Name Description Problem Type Effective Dates Data Source(s) F17.200 Nicotine dependence, unspecified, uncomp licated Nicotine dependence, unspecified, uncomplicated 07/21/2019 12:39:11 PM [facility] V70.0 Health Screening Health Screening 07/21/2019 12 :39:11 PM [facility] [id number] Benign prostatic hyperplasia without low er urinary tract symptoms Benign prostatic hyperplasia without lower urinary tract symptoms 07/21/2019 12:39:11 PM [facility] [id number] Hematuria, unspecified Hematuria, unspecified 07/21/2019 12:39:11 PM [facility] N20.0 Kidney stone Kidney stone Problem 07/21/2019 12:00:00 A M EST eCW1 ([facility]) N20.0 Kidney stone Kidney stone Problem 07/21/2019 12:00:00 A M EST eCW1 ([facility]) Surgeries/Procedures Procedure Description Date Indications Data Source(s) PHYSICIAN TELEPHONE EVALUATION 11-20 MIN 10/11/2019 12 :00:00 AM EDT eCW1 ([facility]) CYSTOSCOPY AND TREATMENT 07/30/2019 12:00:00 AM EST eCW1 ([facility]) ESTABILISHED PATIENT [facility] CHARGE 020 12:00:00 AM EST eCW1 ([facility]) Results ID Date Data Source [id number] 05/29/2020 12:00:00 AM EST [facility] Name Value Range Interpretation Code Description Data Delisa rce(s) Supporting Document(s) 2019-nCoV RNA XXX RHIANNON+probe-Imp [facility] This lab was ordered by [facility] and reported by [employer] ID Date Data Source [id number] 07/21/2019 11:34:25 AM [facility] Measurements & CalculationsHeight: 68 inches (5 ft. [...] during this visit, including review of any vjdo-jqx-hzpulps medications, herbal therapies, and/or supplements.Allergy Review Patient [...] is? FairAssessment & Plan Problems:Added: Hematuria, unspecified (ZUE78-B40.9) Assessment: Pt has appointment to see Dr Covarrubias 07/30 Instructions: Please try to maintain adequate fluid intake. Please keep your appointment with your UrologistNicotine dependence, unspecified, uncomplicated (DVD33-R74.200) Assessment: Instructions: Please try to cut back on your smoking with a goal to quit. Please let us know if you need assistance in doing so.Health Screening (ICD-V70.0) (RES36-X59.9) Assessment: Instructions: We have ordered labs for you today. Please return prior to your next visit to have labs drawn. Please fast for 8-10 hours prior.Hematuria, unspecified (KTN97-Q33.9) Assessment: Pt has appointment to see Dr Covarrubias 07/30 Instructions: Please try to maintain adequate fluid intake. Please keep your appointment with your UrologistBenign prostatic hyperplasia without lower urinary tract symptoms (VMJ62-I62.0) Assessment: Instructions: Please continue medication as prescribed. Please c ontinue to follow with urologist as scheduled.Assessment not Saved Hematuria; unspecified (IDH46-P41.9): Comment OnlyPt has appointment to see Dr [...] MG ORAL CAPSULE-1/2 hour acOrders:COMP METABOLIC PANEL [CPT-98059] CBC W/DIFF [CPT-05349] HgBA1c [CPT-51838] LIPID PANEL [CPT-04126] T SH [CPT-71803] T-4 free [CPT-60619] Vitamin D 250H Unspecified [CPT-91187] URINALYSIS [CPT-55154] PROSTATE CANCER SCREENING; PSA TEST [CPT-G0103] Adult - Ofc Vst, NEW, Level III [CPT-21215] Follow-Up Return to clinic: 4-6 weeks for follow up. Clinical Visit Summary Completed Name Value Range Interpretation Code Description Data Delisa rce(s) Supporting Document(s) Procedure Social History Code Duration Value Status Description Data Source(s ) Smoking 04/07/2020 12:00:00 AM EDT Current Smoker completed Curre nt Smoker eCW1 ([facility]) Smoking 04/07/2020 12:00:00 AM EDT Current Smoker completed Curre nt Smoker eCW1 ([facility]) Smoking 04/07/2020 12:00:00 AM EDT Current Smoker completed Curre nt Smoker eCW1 ([facility]) Smoking 2020 12:00:00 AM EDT Current Smoker completed Curre nt Smoker eCW1 ([facility]) Smoking 2020 12:00:00 AM EDT Current Smoker completed Curre nt Smoker eCW1 ([facility]) Smoking 10/11/2019 12:00:00 AM EDT Current Smoker completed Curre nt Smoker eCW1 ([facility]) Vital Signs ID Date Data Source UNK Name Value Range Interpretation Code Description Data Source(s) Diastolic blood pressure 104 mm[Hg] 104 mm[Hg] eCW1 ([facility]) Systolic blood pressure 178 mm[Hg] 178 mm[Hg] e CW1 ([facility]) Body temperature 98.3 [degF] 98.3 [degF] eCW1 ( [facility]) Respiratory rate 18 /min 18 /min eCW1 ([facility]) Heart rate 89 /min 89 /min eCW1 ([facility]) Body mass index (BMI) [Ratio] 28.38 kg/m2 28.38 kg/m2 eCW1 ([facility]) Body height 67 [in_i] 67 [in_i] eCW1 ([facility]) Body weight 181.2 [lb_av] 181.2 [lb_av] eCW1 ([facility]) Diastolic blood pressure 94 mm[Hg] 94 mm[Hg] eCW1 ([facility]) Systolic blood pressure 155 mm[Hg] 155 mm[Hg] e CW1 ([facility]) Body temperature 99.0 [degF] 99.0 [degF] eCW1 ( [facility]) Respiratory rate 18 /min 18 /min eCW1 ([facility]) Heart rate 88 /min 88 /min eCW1 ([facility]) Body mass index (BMI) [Ratio] 27.19 kg/m2 27.19 kg/m2 eCW1 ([facility]) Body height 67 [in_i] 67 [in_i] eCW1 ([facility]) Body weight 173.6 [lb_av] 173.6 [lb_av] eCW1 ([facility]) Diastolic blood pressure mm[Hg] eCW1 ([facility]) Systolic blood pressure 128 mm[Hg] 128 mm[Hg] e CW1 ([facility]) Body temperature 98.3 [degF] 98.3 [degF] eCW1 ( [facility]) Respiratory rate 17 /min 17 /min eCW1 ([facility]) Heart rate 92 /min 92 /min eCW1 ([facility]) Body mass index (BMI) [Ratio] 29.13 kg/m2 29.13 kg/m2 W1 ([facility]) Body height 67 [in_us] 67 [in_us] eCW1 ([facility]) Body weight Measured 186 [lb_av] 186 [lb_av] eC W1 ([facility]) Body mass index (BMI) [Ratio] 25.8 kg/m2 25.8 k g/m2 MEDENT ([facility]) Body height 68 [in_i] 68 [in_i] MEDENT ([facility]) 5'8" Body weight 170.00 [lb_av] 170.00 [lb_av] MEDEN T ([facility]) Body temperature 97.5 [degF] 97.5 [degF] MEDENT ([facility]) Oxygen saturation in Arterial blood by Pulse oximetry 96 % 96 % MEDENT ([facility]) Respiratory rate 24 /min 24 /min MEDENT ( [facility]) Heart rate 98 /min 98 /min MEDENT ([facility]) Diastolic blood pressure 104 mm[Hg] 104 mm[Hg] MEDENT ([facility]) Systolic blood pressure 148 mm[Hg] 148 mm[Hg] M EDENT ([facility]) Diastolic blood pressure 93 mm[Hg] 93 mm[Hg] eCW1 ([facility]) Systolic blood pressure 150 mm[Hg] 150 mm[Hg] [facility] [facility]) Body temperature 98.1 [degF] 98.1 [degF] eCW1 ( [facility]) Respiratory rate 18 /min 18 /min eCW1 ([facility]) Heart rate 113 /min 113 /min eCW1 ([facility]) Body mass index (BMI) [Ratio] 28.75 kg/m2 28.75 kg/m2 eCW1 ([facility]) Body height [in_us] eCW1 ([facility]) Body weight Measured 183.6 [lb_av] 183.6 [lb_av ] eCW1 ([facility]) Patient Treatment Plan of Care Planned Activity Planned Date Details Description Data Source (s) Acetaminophen 325 MG / Hydrocodone Bitartrate 10 MG Or al Tablet [Shattuck] 06/12/2020 12:00:00 AM EST eCW1 ([facility]) Acetaminophen 325 MG / Hydrocodone Bitartrate 10 MG Or al Tablet [Shattuck] 05/12/2020 12:00:00 AM EST eCW1 ([facility]) Acetaminophen 325 MG / Hydrocodone Bitartrate 10 MG Or al Tablet [Shattuck] 04/07/2020 12:00:00 AM EDT eCW1 ([facility]) Acetaminophen 325 MG / Hydrocodone Bitartrate 10 MG Or al Tablet [Shattuck] 2020 12:00:00 AM EDT eCW1 ([facility]) Acetaminophen 325 MG / Hydrocodone Bitartrate 10 MG Or al Tablet [Shattuck] 2020 12:00:00 AM EDT eCW1 ([facility]) Acetaminophen 325 MG / Hydrocodone Bitartrate 10 MG Or al Tablet [Shattuck] 12/13/2019 12:00:00 AM EDT eCW1 ([facility]) Acetaminophen 325 MG / Hydrocodone Bitartrate 10 MG Or al Tablet [Shattuck] 11/10/2019 12:00:00 AM EDT eCW1 ([facility]) Acetaminophen 325 MG / Hydrocodone Bitartrate 10 MG Or al Tablet [Shattuck] 10/11/2019 12:00:00 AM EDT eCW1 ([facility]) Acetaminophen 325 MG / Hydrocodone Bitartrate 10 MG Or al Tablet [Shattuck] 09/15/2019 12:00:00 AM EDT eCW1 ([facility]) Acetaminophen 325 MG / Hydrocodone Bitartrate 10 MG Or al Tablet [Shattuck] 09/15/2019 12:00:00 AM EDT eCW1 ([facility]) Acetaminophen 325 MG / Hydrocodone Bitartrate 10 MG Or al Tablet [Shattuck] 08/10/2019 12:00:00 AM EST eCW1 ([facility]) Ciprofloxacin 500 MG Oral Tablet 07/21/2019 12:00:00 AM EST eCW1 ([facility]) Acetaminophen 325 MG / Hydrocodone Bitartrate 10 MG Or al Tablet [Shattuck] 07/12/2019 12:00:00 AM EST eCW1 ([facility]) Acetaminophen 325 MG / Hydrocodone Bitartrate 10 MG Or al Tablet [Shattuck] 06/11/2019 12:00:00 AM EST eCW1 ([facility]) Acetaminophen 325 MG / Hydrocodone Bitartrate 10 MG Or al Tablet [Shattuck] 05/14/2019 12:00:00 AM EST eCW1 ([facility])
[2020-07-04] MEDS ORDERED: HYDR-3363 PO (21:48)
[2020-07-04] MEDS ORDERED: hydrOXYzine 25 MG TAB PO STA (22:01)
[2020-07-04 22:08] VITALS: BP 151/96
== END 2020-07-04 22:18 | disposition home or self-care (01) ==
LOC: M ED 16:57
DX: F43.21 Adjustment disorder with depressed mood (principal); I10 Essential (primary) hypertension; E78.5 Hyperlipidemia, unspecified; K21.9 Gastro-esophageal reflux disease without esophagitis; F41.9 Anxiety disorder, unspecified; F17.210 Nicotine dependence, cigarettes, uncomplicated; Z79.899 Other long term (current) drug therapy

== ENCOUNTER → 2020-07-24 | Outpatient (CLI) | payer OTHER ==
[~2020-07-24] MED LIST changes: +HYDR-3363 PO
--- NOTE | 2020-07-24 23:05 | ECWPNPC ---
PATIENT NAME: ELVA DUTTON : 1960 GENDER: MALE VISIT DATE: 07/24/2020 DISCHARGE DATE: 07/24/20 1539 VISIT LOCKED DATE TIME: PHYSICIAN: NAOMI MORRIS RESOURCE: NAOMI MORRIS REASON FOR APPOINTMENT 1. MEDICATION MANAGEMENT HISTORY OF PRESENT ILLNESS GENERAL: -. FALL RISK SCREENING: SCREENING :ONE FALL WITHOUT INJURY IN THE PAST YEAR PAIN SCREENING: PATIENT HAS A COMPLAINT OF ACUTE OR CHRONIC PAIN :YES LOCATION OF PAIN:LOW BACK INTENSITY OF PAIN (SCALE OF 1 TO 10):7 WHAT DOES YOUR PAIN FEEL LIKE:SORE DURATION:INTERMITTENT PAIN IS INCREASED BY:ACTIVITIES PAIN IS DECREASED BY:USE OF PAIN MEDICATIONS NURSING NOTE: -. PAIN CENTER INTAKE QUESTIONS: DO YOU HAVE A HISTORY OF MRSA? :NO DO YOU TAKE A BLOOD THINNERS? :NO DO YOU HAVE ANY BLEEDING DISORDERS? :NO ANY NEW NUMBNESS OR WEAKNESS IN YOUR LEGS OR ARMS? :NO ANY PACEMAKER,DEFIBRILLATOR, OR DORSAL COLUMN STIMULATOR? :NO DO YOU HAVE ANY RASHES OR OPEN SORES? :NO ARE YOU ALLERGIC TO IV DYE? :NO ARE YOU DIABETIC? :NO ANY NEW PROBLEMS WITH YOUR MEDICATIONS? :NO HAVE YOU RECEIVED A VACCINE IN THE PAST 30 DAYS? :NO DO YOU PLAN TO RECEIVE A VACCINE IN THE NEXT 21 DAYS? :NO DO YOU NEED ANY PRESCRIPTION? :NO DO YOU TAKE ANY IMMUNOSUPPRESSIVE MEDICATIONS? :NO IS THERE A CHANCE YOU COULD BE ? :NO ARE YOU BREAST FEEDING? 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 PAIN THE PATIENT DESCRIBES THE PAIN... CURRENT MEDICATIONS TAKING REXULTI 0.25 MG TABLET 1 TABLET ORALLY ONCE A DAY TAKING LITHIUM CARBONATE 150 MG CAPSULE 1 CAPSULE ORALLY ONCE A DAY TAKING VIIBRYD 10 MG TABLET 1 TAB ORALLY DAILY TAKING DEXTROAMPHETAMINE SULFATE 20 MG TABLET 1 TABLET ORALLY THREE TIMES A DAY TAKING ALPRAZOLAM 1 MG TABLET 1 TABLET ORALLY TWICE A DAY TAKING NORCO 10-325 MG TABLET 1 TABLET NEEDED ORALLY EVERY 6 HRS PRN MDD4 NOT-TAKING ZALEPLON 10 MG CAPSULE 1 CAPSULE AT BEDTIME NEEDED ORALLY ONCE A DAY NOT-TAKING CIPROFLOXACIN HCL 500 MG TABLET 1 TABLET 1 HOUR PRIOR TO YOUR CYSTOSCOPY ORALLY ONCE NOT-TAKING HYDROCODONE-ACETAMINOPHEN 10-325 MG TABLET 1 TABLET NEEDED ORALLY Q8H PRN MDD3, NOTES: DUPLICATE NOT-TAKING ADDERALL 20 MG TABLET 1 TABLET ORALLY TWICE A DAY NOT-TAKING CLONAZEPAM 1 MG TABLET 1 TABLET ORALLY ONCE A DAY NOT-TAKING KETOROLAC TROMETHAMINE 10 MG TABLET 1 TABLET WITH FOOD OR MILK NEEDED ORALLY EVERY 6 HRS NOT-TAKING ZOFRAN 4 MG TABLET 1 TAB ORALLY TWICE A DAY NEEDED FOR NAUSEA NOT-TAKING TRAZODONE HCL 50 MG TABLET ORALLY NOT-TAKING PAXIL 20 MG TABLET 1 TABLET IN THE MORNING ORALLY ONCE A DAY MEDICATION LIST REVIEWED AND RECONCILED WITH THE PATIENT PAST MEDICAL HISTORY DEPRESSION/ANXIETY - CELEXA AND ZOLOFT IN THE PAST, CURRENTLY ON TRAZODONE ONLY QHS OSTEOARTHRITIS - LUMBAGO HYPERTENSION DYSTHYMIC ALCOHOL ABUSE LOW BACK PAIN ALLERGIES N.K.D.A. SOCIAL HISTORY GENERAL: TOBACCO USE ARE YOU A:CURRENT SMOKER ARE YOU INTERESTED IN QUITTING?THINKING ABOUT QUITTING TRYING TO CUT BACK. PREVIOUS QUIT ATTEMPTS?YES, MORE THAN 6 MONTHS AGO. COUNSELED THE PATIENT ON SMOKING CESSATION, EDUCATION [id number]/01/2021 HOW MANY CIGARETTES A DAY DO YOU SMOKE?11-20 HOW SOON AFTER YOU WAKE UP DO YOU SMOKE YOUR FIRST CIGARETTE?6-30 MIN HOW OFTEN DO YOU SMOKE CIGARETTES?EVERY DAY PATIENT COUNSELED ON THE DANGERS OF TOBACCO USE AND URGED TO QUIT:01/06/2020 LATEX QUESTIONNAIRE LATEX ALLERGY : HAVE YOU EVER DEVELOPED ANY TYPE OF REACTION AFTER HANDLING LATEX PRODUCTS SUCH RUBBER GLOVES, CONDOMS, DIAPHRAGMS, BALLOONS, SOCKS, OR UNDERWEAR?NO LATEX ALLERGY : HAVE YOU EVER DEVELOPED ANY TYPE OF REACTION DURING OR AFTER DENTAL APPOINTMENT, VAGINAL/RECTAL EXAMINATION, SURGICAL PROCEDURE, OR ANY OTHER EXPOSURE?NO LATEX RISK : HAVE YOU EVER HAD ANY DIFFICULTY BREATHING OR HIVES AFTER EATING OR HANDLING ANY FRUITS, OR VEGETABLES; SUCH KIWI, BANANAS, STONE FRUITS, OR CHESTNUTSNO LATEX RISK : DO YOU HAVE A PREVIOUS PERSONAL HISTORY OF MORE THAN NINE SURGERIES, SPINA BIFIDA, OR REPEATED CATHERIZATIONS? NO LATEX RISK : ARE YOU FREQUENTLY EXPOSED TO LATEX PRODUCTS IN YOUR OCCUPATION?NO DATE ASKED : 07/24/2020 ALCOHOL USE: YES. ALCOHOL SCREENING DID YOU HAVE A DRINK CONTAINING ALCOHOL IN THE PAST YEAR?YES HOW OFTEN DID YOU HAVE SIX OR MORE DRINKS ON ONE OCCASION IN THE PAST YEAR?NEVER (0 POINTS) HOW MANY DRINKS DID YOU HAVE ON A TYPICAL DAY WHEN YOU WERE DRINKING IN THE PAST YEAR?1 OR 2 (0 POINTS) HOW OFTEN DID YOU HAVE A DRINK CONTAINING ALCOHOL IN THE PAST YEAR?MONTHLY OR LESS (1 POINT) POINTS1 INTERPRETATIONNEGATIVE RECREATIONAL DRUG USE DRUG USE?NO CAFFEINE CAFFEINE USE?NO CHRISTIANITY [id number] RESTORATIONIST LANGUAGE LANGUAGES SPOKEN:ICELANDIC LEARNING BARRIERS / SPECIAL NEEDS CHANGE FROM LAST VISIT?NO BARRIERS TO LEARNING?NO HEARING IMPAIRED?NO VISION IMPAIRED?YES :CORRECTIVE LENSES READING GLASSES COGNITIVELY IMPAIRED?NO READINESS TO LEARN?YES LEARNING PREFERENCES?NO LEARNING CAPABILITIES PRESENT?YES EMOTIONAL BARRIERS?NO SPECIAL DEVICES?NO MOTOR TESTER NEEDED?NO DOMESTIC VIOLENCE DO YOU FEEL SAFE IN YOUR ENVIRONMENT?YES OCCUPATION: [employer]. DIET: REGULAR. 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 - PFS REFERRAL NEEDED?NO CLERGY REFERRAL NEEDED?NO PUBLIC HEALTH REFERRAL NEEDED?NO WAS THE PROVIDER NOTIFIED OF ANY PERTINENT INFO? N/A HAS THE PATIENT BEEN EDUCATED REGARDING HIS/HER PLAN OF CARE?YES HAS THE PATIENT BEEN EDUCATED REGARDING PAIN, THE RISK FOR PAIN, THE IMPORTANCE OF EFFECTIVE PAIN MANAGEMENT, AND THE PAIN ASSESSMENT PROCESS?YES ADVANCE DIRECTIVE ADVANCE DIRECTIVE DISCUSSED WITH PATIENT:YES HCP - [facility] (SI[facility]) & [facility] MARQUEZ (SISTER) REVIEW OF SYSTEMS CONSTITUTIONAL: ANY RECENT FEVER NO . CHILLS NO . WEIGHT CHANGE OF UNKNOWN REASONS NO . GASTROENTEROLOGY: NEW UNEXPLAINABLE CHANGES IN BOWEL CONTROL NO . CONSTIPATION NO . GENITOURINARY: ANY NEW CHANGE IN BLADDER CONTROL? NO . NEUROLOGY: NEW ONSET DIZZINESS OR NEUROLOGICAL CHANGES NOT MENTIONED NO . NEW NUMBNESS OR PAIN PATTERNS NOT MENTIONED AND PERTINENT TO TODAY'S VISIT NO . CARDIOLOGY: NEW CHEST PRESSURE NO . NEW CHEST PAIN NO . RESPIRATORY: UNEXPLAINABLE COUGH NO . NEW SHORTNESS OF BREATH NO . VITAL SIGNS WT 186 LBS, HT 67 IN, BMI 29.13 INDEX, BP 167/97 MM HG, HR 91 /MIN, RR 18 /MIN, TEMP 98.1 F, OXYGEN SAT % 94%NORMA GUSTAFSON EXAMINATION GENERAL EXAMINATION: GENERALAWAKE,ALERT ,PLEAASANT . PSYCHAFFECT NORMAL . LUNGS:LUNG WISDOM ARE CLEAR TO AUSCULTATION BILATERALLY. GOOD MOVEMENT OF AIR . HEART:S1, S2 IN A REGULAR RATE AND RHYTHM. NO SIGNIFICANT MURMURS, RUBS OR GALLOPS NOTED . ASSESSMENTS LOW BACK PAIN - M54.5 CHRONIC PRESCRIPTION OPIATE USE - Z79.891 TREATMENT LOW BACK PAIN REFILL NORCO TABLET, 10-325 MG, 1 TABLET NEEDED, ORALLY, EVERY 6 HRS PRN MDD4, 30 DAYS, 120, REFILLS 0 NOTES: ISTOP REGISTRY REVIEWED AND DEMONSTRATES COMPLLIANCE. BRINGS IN MEDICATIONS WHICH IS APPROPRIATE FOR WHAT WAS DISPENSED. RECENT URINE TOXICOLOGY REVIEWED. NO UNAUTHORIZED MEDICATIONS. NO ILLICIT SUBSTANCES AND PRESCRIBED MEDICATIONS WERE PRESENT. URINE TOX TODAY , RISKS OF NARCOTIC/OPIOD MEDICATIONS INCLUDES BUT IS NOT LIMITED TO RISK OF DEPENDANCE/DEVELOPMENT OF ADDICTION, MOOD DISTURBANCE AND DEPRESSION, OSTEOPOROSIS, HORMONAL AND LABIDAL CHANGES, RESPIRATORY DEPRESSION AND . PATIENT IS ADVISED NOT TO DRIVE OR DRINK ALCOHOL WHILE ON THESE MEDICATIONS. PROCEDURE CODES FA211 ESTABILISHED PATIENT [facility] CHARGE DISPOSITION & COMMUNICATION FOLLOW UP 3 MONTHS (REASON: MED MGMNT/REVIEW UTOX) ELECTRONICALLY SIGNED BY COURTNEY AMADO ON 07/24/2020 AT 03:38 PM EST DISCLAIMER : THIS IS A VISIT SUMMARY EXTRACTED FROM THE [employer] CHART. IT IS NOT A COPY OF THE [employer] PROGRESS NOTE. CAROLE
== END ==
LOC: M PAIN 14:45
PROVIDERS: ATTEND Nurse Practitioner Family
DX: M54.5 Low back pain (principal); G89.29 Other chronic pain; F17.210 Nicotine dependence, cigarettes, uncomplicated; Z86.59 Personal history of other mental and behavioral disorders; Z79.899 Other long term (current) drug therapy

== ENCOUNTER → 2020-10-09 | Outpatient (CLI) | payer OTHER ==
[~2020-10-09] MED LIST changes: +QUET50TA3 PO; -QUET5TAB PO
--- NOTE | 2020-10-09 16:04 | REP ---
INDICATION: LT LEG PAIN SWELLING ? DVT COMPARISON: None. TECHNIQUE: Terry scale and color Doppler evaluation using linear high frequency transducer. FINDINGS: Ultrasound examination of the left lower extremity deep venous structures from the common femoral vein to the popliteal vein demonstrates normal compressibility flow and wave patterns in response to respiration and augmentation. There is no evidence for deep venous thrombosis. There is a 6.5 x 1.4 x 4.2 cm cystic collection along the medial aspect of the left knee which may represent Montana's cyst although intramuscular collection such as hematoma cannot definitively be excluded. IMPRESSION: No evidence for deep venous thrombosis. Fluid collection along the medial left knee possibly Montana's cyst and less likely intramuscular collection. <Electronically signed by Eleuterio Ewing > 10/09/20 1600
== END ==
LOC: M RAD 15:34
PROVIDERS: ATTEND Physician Assistant
DX: M79.605 Pain in left leg (principal)

== ENCOUNTER → 2020-10-25 | Outpatient (CLI) | payer OTHER ==
--- NOTE | 2020-10-27 06:30 | ECWPNPC ---
PATIENT NAME: ELVA DUTTON : 1960 GENDER: MALE VISIT DATE: 10/25/2020 DISCHARGE DATE: 10/25/20 1518 VISIT LOCKED DATE TIME: PHYSICIAN: NAOMI MORRIS RESOURCE: NAOMI MORRIS REASON FOR APPOINTMENT 1. MED MGMNT/REVIEW UTOX HISTORY OF PRESENT ILLNESS GENERAL: -. FALL RISK SCREENING: SCREENING : NO FALLS REPORTED IN THE LAST YEAR. PAIN SCREENING: PATIENT HAS A COMPLAINT OF ACUTE OR CHRONIC PAIN :YES LOCATION OF PAIN:LOW BACK INTENSITY OF PAIN (SCALE OF 1 TO 10):5 WHAT DOES YOUR PAIN FEEL LIKE:ACHING, CONTINOUS DURATION:CONTINOUS, CONSTANT, ALL DAY PAIN IS INCREASED BY:ACTIVITIES PAIN IS DECREASED BY:USE OF PAIN MEDICATIONS NURSING NOTE: -. PAIN CENTER INTAKE QUESTIONS: DO YOU HAVE A HISTORY OF MRSA? :NO DO YOU TAKE A BLOOD THINNERS? :NO DO YOU HAVE ANY BLEEDING DISORDERS? :NO ANY NEW NUMBNESS OR WEAKNESS IN YOUR LEGS OR ARMS? :NO ANY PACEMAKER,DEFIBRILLATOR, OR DORSAL COLUMN STIMULATOR? :NO DO YOU HAVE ANY RASHES OR OPEN SORES? :NO ARE YOU ALLERGIC TO IV DYE? :NO ARE YOU DIABETIC? :NO ANY NEW PROBLEMS WITH YOUR MEDICATIONS? :NO HAVE YOU RECEIVED A VACCINE IN THE PAST 30 DAYS? :NO DO YOU PLAN TO RECEIVE A VACCINE IN THE NEXT 21 DAYS? :NO DO YOU NEED ANY PRESCRIPTION? :NO DO YOU TAKE ANY IMMUNOSUPPRESSIVE MEDICATIONS? :NO IS THERE A CHANCE YOU COULD BE ? :NO ARE YOU BREAST FEEDING? 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 PAIN THE PATIENT DESCRIBES THE PAIN... CURRENT MEDICATIONS TAKING HYDROCODONE-ACETAMINOPHEN 10-325 MG TABLET 1 TABLET NEEDED ORALLY EVERY 6 HRS PRN MDD4 TAKING ALPRAZOLAM 1 MG TABLET 1 TABLET ORALLY TWICE A DAY TAKING LITHIUM CARBONATE 150 MG CAPSULE 1 CAPSULE ORALLY ONCE A DAY TAKING ZALEPLON 10 MG CAPSULE 1 CAPSULE AT BEDTIME NEEDED ORALLY ONCE A DAY TAKING ADDERALL 20 MG TABLET 1 TABLET ORALLY TWICE A DAY TAKING CELEBREX 200 MG CAPSULE 1 CAPSULE WITH FOOD ORALLY TWICE A DAY NOT-TAKING REXULTI 0.25 MG TABLET 1 TABLET ORALLY ONCE A DAY NOT-TAKING VIIBRYD 10 MG TABLET 1 TAB ORALLY DAILY NOT-TAKING ALPRAZOLAM 1 MG TABLET 1 TABLET ORALLY TWICE A DAY UNKNOWN DEXTROAMPHETAMINE SULFATE 20 MG TABLET 1 TABLET ORALLY THREE TIMES A DAY UNKNOWN CIPROFLOXACIN HCL 500 MG TABLET 1 TABLET 1 HOUR PRIOR TO YOUR CYSTOSCOPY ORALLY ONCE UNKNOWN HYDROCODONE-ACETAMINOPHEN 10-325 MG TABLET 1 TABLET NEEDED ORALLY Q8H PRN MDD3, NOTES: DUPLICATE UNKNOWN CLONAZEPAM 1 MG TABLET 1 TABLET ORALLY ONCE A DAY UNKNOWN KETOROLAC TROMETHAMINE 10 MG TABLET 1 TABLET WITH FOOD OR MILK NEEDED ORALLY EVERY 6 HRS UNKNOWN ZOFRAN 4 MG TABLET 1 TAB ORALLY TWICE A DAY NEEDED FOR NAUSEA UNKNOWN TRAZODONE HCL 50 MG TABLET ORALLY UNKNOWN PAXIL 20 MG TABLET 1 TABLET IN THE MORNING ORALLY ONCE A DAY MEDICATION LIST REVIEWED AND RECONCILED WITH THE PATIENT PAST MEDICAL HISTORY DEPRESSION/ANXIETY - CELEXA AND ZOLOFT, TRAZODONE IN THE PAST DEPRESSION- HE HAS BEEN IMHU ONCE AND BEEN TO THE ER SEVERAL TIMES OSTEOARTHRITIS - LUMBAGO HYPERTENSION ALCOHOL ABUSE LOW BACK PAIN KIDNEY STONES ALLERGIES N.K.D.A. SURGICAL HISTORY CYST REMOVAL RIGHT THUMB REPAIR OF LACERATION LASER LITHO CYSTO STENT REMOVAL 07/30/2019 RIGHT KNEE PAIN AND SWELLING [place] CRST 09/27/2020 FAMILY HISTORY FATHER: 78 YRS, COLON CANCER, [place] IN LATE 50'S, CAD MOTHER: 74 YRS, KIDNEY DISEASE 2 BROTHER(S) , 3 SISTER(S) . 1 SON(S) , 2 DAUGHTER(S) - HEALTHY. NO KNOWN FAMILY HISTORY OF ANY BREAST, PANCREATIC OR PROSTATE CANCERS.FATHER WITH COLON CANCER. SOCIAL HISTORY GENERAL: TOBACCO USE ARE YOU A:CURRENT SMOKER ARE YOU INTERESTED IN QUITTING?THINKING ABOUT QUITTING TRYING TO CUT BACK. PREVIOUS QUIT ATTEMPTS?YES, MORE THAN 6 MONTHS AGO. COUNSELED THE PATIENT ON SMOKING CESSATION, EDUCATION [id number]/05/2021 HOW MANY CIGARETTES A DAY DO YOU SMOKE?11-20 HOW SOON AFTER YOU WAKE UP DO YOU SMOKE YOUR FIRST CIGARETTE?6-30 MIN HOW OFTEN DO YOU SMOKE CIGARETTES?EVERY DAY PATIENT COUNSELED ON THE DANGERS OF TOBACCO USE AND URGED TO QUIT:10/19/2020 SMOKING CESSATION INFORMATION GIVEN10/19/2020 LATEX QUESTIONNAIRE LATEX ALLERGY : HAVE YOU EVER DEVELOPED ANY TYPE OF REACTION AFTER HANDLING LATEX PRODUCTS SUCH RUBBER GLOVES, CONDOMS, DIAPHRAGMS, BALLOONS, SOCKS, OR UNDERWEAR?NO LATEX ALLERGY : HAVE YOU EVER DEVELOPED ANY TYPE OF REACTION DURING OR AFTER DENTAL APPOINTMENT, VAGINAL/RECTAL EXAMINATION, SURGICAL PROCEDURE, OR ANY OTHER EXPOSURE?NO LATEX RISK : HAVE YOU EVER HAD ANY DIFFICULTY BREATHING OR HIVES AFTER EATING OR HANDLING ANY FRUITS, OR VEGETABLES; SUCH KIWI, BANANAS, STONE FRUITS, OR CHESTNUTSNO LATEX RISK : DO YOU HAVE A PREVIOUS PERSONAL HISTORY OF MORE THAN NINE SURGERIES, SPINA BIFIDA, OR REPEATED CATHERIZATIONS? NO LATEX RISK : ARE YOU FREQUENTLY EXPOSED TO LATEX PRODUCTS IN YOUR OCCUPATION?NO DATE ASKED : 10/25/2020 ALCOHOL USE: YES. ALCOHOL SCREENING DID YOU HAVE A DRINK CONTAINING ALCOHOL IN THE PAST YEAR?YES HOW OFTEN DID YOU HAVE SIX OR MORE DRINKS ON ONE OCCASION IN THE PAST YEAR?NEVER (0 POINTS) HOW MANY DRINKS DID YOU HAVE ON A TYPICAL DAY WHEN YOU WERE DRINKING IN THE PAST YEAR?1 OR 2 (0 POINTS) HOW OFTEN DID YOU HAVE A DRINK CONTAINING ALCOHOL IN THE PAST YEAR?MONTHLY OR LESS (1 POINT) POINTS1 INTERPRETATIONNEGATIVE RECREATIONAL DRUG USE DRUG USE?NO CAFFEINE CAFFEINE USE?NO SEXUAL HX HAD SEX IN THE LAST 12 MONTHS (VAGINAL, ORAL, OR ANAL)?NO HAVE YOU EVER HAD AN STD?NO HIV / HEP-C SCREENING HIV TEST OFFERED TO PATIENT:YES DATE OFFERED:10/19/2020 TEST ACCEPTED:NO HEP-C TEST OFFERED TO PATIENT:YES DATE OFFERED:10/19/2020 REASON:PATIENT DECLINED TEST ACCEPTED:NO REASON:PATIENT DECLINED BROCHURE PROVIDED TO PATIENTYES PENTECOSTALISM [id number] DRUZE LANGUAGE LANGUAGES SPOKEN:NIGERIEN EDUCATION LEVEL OF EDUCATION:COLLEGE DID 2 YEARS OF COLLEGE LEARNING BARRIERS / SPECIAL NEEDS CHANGE FROM LAST VISIT?NO BARRIERS TO LEARNING?NO HEARING IMPAIRED?NO VISION IMPAIRED?YES :CORRECTIVE LENSES READING GLASSES COGNITIVELY IMPAIRED?NO READINESS TO LEARN?YES LEARNING PREFERENCES?NO LEARNING CAPABILITIES PRESENT?YES EMOTIONAL BARRIERS?NO SPECIAL DEVICES?NO OVEN DAUBER NEEDED?NO DOMESTIC VIOLENCE DO YOU FEEL SAFE IN YOUR ENVIRONMENT?YES OCCUPATION: [employer]. DIET: REGULAR. 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 MARITAL STATUS: .. OTHERS AT HOME: CHILD. - PFS REFERRAL NEEDED?NO CLERGY REFERRAL NEEDED?NO PUBLIC HEALTH REFERRAL NEEDED?NO WAS THE PROVIDER NOTIFIED OF ANY PERTINENT INFO? N/A HAS THE PATIENT BEEN EDUCATED REGARDING HIS/HER PLAN OF CARE?YES HAS THE PATIENT BEEN EDUCATED REGARDING PAIN, THE RISK FOR PAIN, THE IMPORTANCE OF EFFECTIVE PAIN MANAGEMENT, AND THE PAIN ASSESSMENT PROCESS?YES ADVANCE DIRECTIVE ADVANCE DIRECTIVE DISCUSSED WITH PATIENT:YES HCP - [facility] ([facility]) & [facility]QUEZ (SISTER) HOSPITALIZATION/MAJOR DIAGNOSTIC PROCEDURE [facility] INPATIENT ADMISSION 09/2017 REVIEW OF SYSTEMS CONSTITUTIONAL: ANY RECENT FEVER NO . CHILLS NO . WEIGHT CHANGE OF UNKNOWN REASONS NO . GASTROENTEROLOGY: NEW UNEXPLAINABLE CHANGES IN BOWEL CONTROL NO . CONSTIPATION NO . GENITOURINARY: ANY NEW CHANGE IN BLADDER CONTROL? NO . NEUROLOGY: NEW ONSET DIZZINESS OR NEUROLOGICAL CHANGES NOT MENTIONED NO . NEW NUMBNESS OR PAIN PATTERNS NOT MENTIONED AND PERTINENT TO TODAY'S VISIT NO . CARDIOLOGY: NEW CHEST PRESSURE NO . PATIENT DENIES NO . RESPIRATORY: UNEXPLAINABLE COUGH NO . NEW SHORTNESS OF BREATH NO . VITAL SIGNS WT 195.0 LBS, HT 67 IN, BMI 30.54 INDEX, BP 297563 MM HG, HR 91 /MIN, RR 18 /MIN, TEMP 98.2 F, OXYGEN SAT % 97%, SAFE IN ENV? (Y/N) YES, NA INITIALS AW 1442T.CARLOS SHAIKH. EXAMINATION GENERAL EXAMINATION: GENERALAWAKE,ALERT ,PLEAASANT . PSYCHAFFECT NORMAL . LUNGS:LUNG WISDOM ARE CLEAR TO AUSCULTATION BILATERALLY. GOOD MOVEMENT OF AIR . HEART:S1, S2 IN A REGULAR RATE AND RHYTHM. NO SIGNIFICANT MURMURS, RUBS OR GALLOPS NOTED . ASSESSMENTS LOW BACK PAIN - M54.5 (PRIMARY) TREATMENT LOW BACK PAIN REFILL HYDROCODONE-ACETAMINOPHEN TABLET, 10-325 MG, 1 TABLET NEEDED, ORALLY, EVERY 6 HRS PRN MDD4, 30 DAYS, 120 NOTES: ISTOP REGISTRY REVIEWED AND DEMONSTRATES COMPLLIANCE. BRINGS IN MEDICATIONS WHICH IS APPROPRIATE FOR WHAT WAS DISPENSED. RECENT URINE TOXICOLOGY REVIEWED. NO UNAUTHORIZED MEDICATIONS. NO ILLICIT SUBSTANCES AND PRESCRIBED MEDICATIONS WERE PRESENT. PROCEDURE CODES FA211 ESTABILISHED PATIENT [facility] FACILITY CHARGE DISPOSITION & COMMUNICATION FOLLOW UP 3 MONTHS (REASON: MED MGMNT) ELECTRONICALLY SIGNED BY COURTNEY AMADO ON 10/26/2020 AT 04:42 PM EDT DISCLAIMER : THIS IS A VISIT SUMMARY EXTRACTED FROM THE [employer] CHART. IT IS NOT A COPY OF THE [employer] PROGRESS NOTE. CAROLE
== END ==
LOC: M PAIN 14:30
PROVIDERS: ATTEND Nurse Practitioner Family
DX: M54.5 Low back pain (principal); G89.29 Other chronic pain; F17.210 Nicotine dependence, cigarettes, uncomplicated; Z86.59 Personal history of other mental and behavioral disorders; Z79.899 Other long term (current) drug therapy

== ENCOUNTER → 2021-01-25 | Outpatient (CLI) | payer OTHER ==
--- NOTE | 2021-01-26 04:15 | ECWPNPC ---
PATIENT NAME: ELVA DUTTON : 1960 GENDER: MALE VISIT DATE: 01/25/2021 DISCHARGE DATE: 01/25/21 1507 VISIT LOCKED DATE TIME: PHYSICIAN: NAOMI MORRIS PHYSICIAN PAGER NO: ACTIVE RESOURCE: NAOMI MORRIS REASON FOR APPOINTMENT 1. BACK/MED MGMNT HISTORY OF PRESENT ILLNESS GENERAL: -. FALL RISK SCREENING: SCREENING 09/2020 ONE INJURIES FRACTURE LEFT KNEE. PAIN SCREENING: PATIENT HAS A COMPLAINT OF ACUTE OR CHRONIC PAIN :YES LOCATION OF PAIN:LOW BACK INTENSITY OF PAIN (SCALE OF 1 TO 10):9 WHAT DOES YOUR PAIN FEEL LIKE:CONTINOUS, TENDER, THROBBING, SORE DURATION:CONTINOUS, CONSTANT, ALL DAY PAIN IS INCREASED BY:ACTIVITIES, PROLONGED STANDING PAIN IS DECREASED BY:USE OF PAIN MEDICATIONS NURSING NOTE: -. PAIN CENTER INTAKE QUESTIONS: DO YOU HAVE A HISTORY OF MRSA? :NO DO YOU TAKE A BLOOD THINNERS? :NO DO YOU HAVE ANY BLEEDING DISORDERS? :NO ANY NEW NUMBNESS OR WEAKNESS IN YOUR LEGS OR ARMS? :NO ANY PACEMAKER,DEFIBRILLATOR, OR DORSAL COLUMN STIMULATOR? :NO DO YOU HAVE ANY RASHES OR OPEN SORES? :NO ARE YOU ALLERGIC TO IV DYE? :NO ARE YOU DIABETIC? :NO ANY NEW PROBLEMS WITH YOUR MEDICATIONS? :NO HAVE YOU RECEIVED A VACCINE IN THE PAST 30 DAYS? :NO DO YOU PLAN TO RECEIVE A VACCINE IN THE NEXT 21 DAYS? :NO DO YOU NEED ANY PRESCRIPTION? :YES HYDROCODONE-ACETAMINOPHEN 10-325 MG DO YOU TAKE ANY IMMUNOSUPPRESSIVE MEDICATIONS? :NO IS THERE A CHANCE YOU COULD BE ? :NO ARE YOU BREAST FEEDING? 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 PAIN THE PATIENT DESCRIBES THE PAIN... CURRENT MEDICATIONS TAKING ALPRAZOLAM 1 MG TABLET 1 TABLET ORALLY TWICE A DAY TAKING LITHIUM CARBONATE 150 MG CAPSULE 1 CAPSULE ORALLY ONCE A DAY TAKING ZALEPLON 10 MG CAPSULE 1 CAPSULE AT BEDTIME NEEDED ORALLY ONCE A DAY TAKING ADDERALL 20 MG TABLET 1 TABLET ORALLY TWICE A DAY TAKING CELEBREX 200 MG CAPSULE 1 CAPSULE WITH FOOD ORALLY TWICE A DAY TAKING HYDROCODONE-ACETAMINOPHEN 10-325 MG TABLET 1 TABLET NEEDED ORALLY EVERY 6 HRS PRN MDD4 NOT-TAKING REXULTI 0.25 MG TABLET 1 TABLET ORALLY ONCE A DAY NOT-TAKING VIIBRYD 10 MG TABLET 1 TAB ORALLY DAILY NOT-TAKING ALPRAZOLAM 1 MG TABLET 1 TABLET ORALLY TWICE A DAY UNKNOWN DEXTROAMPHETAMINE SULFATE 20 MG TABLET 1 TABLET ORALLY THREE TIMES A DAY UNKNOWN CIPROFLOXACIN HCL 500 MG TABLET 1 TABLET 1 HOUR PRIOR TO YOUR CYSTOSCOPY ORALLY ONCE UNKNOWN HYDROCODONE-ACETAMINOPHEN 10-325 MG TABLET 1 TABLET NEEDED ORALLY Q8H PRN MDD3, NOTES: DUPLICATE UNKNOWN CLONAZEPAM 1 MG TABLET 1 TABLET ORALLY ONCE A DAY UNKNOWN KETOROLAC TROMETHAMINE 10 MG TABLET 1 TABLET WITH FOOD OR MILK NEEDED ORALLY EVERY 6 HRS UNKNOWN ZOFRAN 4 MG TABLET 1 TAB ORALLY TWICE A DAY NEEDED FOR NAUSEA UNKNOWN TRAZODONE HCL 50 MG TABLET ORALLY UNKNOWN PAXIL 20 MG TABLET 1 TABLET IN THE MORNING ORALLY ONCE A DAY MEDICATION LIST REVIEWED AND RECONCILED WITH THE PATIENT PAST MEDICAL HISTORY DEPRESSION/ANXIETY - CELEXA AND ZOLOFT, TRAZODONE IN THE PAST DEPRESSION- HE HAS BEEN IM ONCE AND BEEN TO THE ER SEVERAL TIMES OSTEOARTHRITIS - LUMBAGO HYPERTENSION ALCOHOL ABUSE LOW BACK PAIN KIDNEY STONES ALLERGIES NO[ALLERGIES VERIFIED] SURGICAL HISTORY CYST REMOVAL RIGHT THUMB REPAIR OF LACERATION LASER LITHO CYSTO STENT REMOVAL 07/30/2019 RIGHT KNEE PAIN AND SWELLING [place] CRST 09/27/2020 SOCIAL HISTORY GENERAL: TOBACCO USE ARE YOU A:CURRENT SMOKER ARE YOU INTERESTED IN QUITTING?THINKING ABOUT QUITTING TRYING TO CUT BACK. PREVIOUS QUIT ATTEMPTS?YES, MORE THAN 6 MONTHS AGO. COUNSELED THE PATIENT ON SMOKING CESSATION, EDUCATION [id number]/05/2021 HOW MANY CIGARETTES A DAY DO YOU SMOKE?11-20 HOW SOON AFTER YOU WAKE UP DO YOU SMOKE YOUR FIRST CIGARETTE?6-30 MIN HOW OFTEN DO YOU SMOKE CIGARETTES?EVERY DAY PATIENT COUNSELED ON THE DANGERS OF TOBACCO USE AND URGED TO QUIT:01/25/2021 SMOKING CESSATION INFORMATION GIVEN10/19/2020 LATEX QUESTIONNAIRE LATEX ALLERGY : HAVE YOU EVER DEVELOPED ANY TYPE OF REACTION AFTER HANDLING LATEX PRODUCTS SUCH RUBBER GLOVES, CONDOMS, DIAPHRAGMS, BALLOONS, SOCKS, OR UNDERWEAR?NO LATEX ALLERGY : HAVE YOU EVER DEVELOPED ANY TYPE OF REACTION DURING OR AFTER DENTAL APPOINTMENT, VAGINAL/RECTAL EXAMINATION, SURGICAL PROCEDURE, OR ANY OTHER EXPOSURE?NO LATEX RISK : HAVE YOU EVER HAD ANY DIFFICULTY BREATHING OR HIVES AFTER EATING OR HANDLING ANY FRUITS, OR VEGETABLES; SUCH KIWI, BANANAS, STONE FRUITS, OR CHESTNUTSNO LATEX RISK : DO YOU HAVE A PREVIOUS PERSONAL HISTORY OF MORE THAN NINE SURGERIES, SPINA BIFIDA, OR REPEATED CATHERIZATIONS? NO LATEX RISK : ARE YOU FREQUENTLY EXPOSED TO LATEX PRODUCTS IN YOUR OCCUPATION?NO DATE ASKED : 01/25/2021 ALCOHOL USE: YES. ALCOHOL SCREENING DID YOU HAVE A DRINK CONTAINING ALCOHOL IN THE PAST YEAR?YES HOW OFTEN DID YOU HAVE A DRINK CONTAINING ALCOHOL IN THE PAST YEAR?MONTHLY OR LESS (1 POINT) HOW MANY DRINKS DID YOU HAVE ON A TYPICAL DAY WHEN YOU WERE DRINKING IN THE PAST YEAR?1 OR 2 (0 POINTS) HOW OFTEN DID YOU HAVE SIX OR MORE DRINKS ON ONE OCCASION IN THE PAST YEAR?NEVER (0 POINTS) POINTS1 INTERPRETATIONNEGATIVE RECREATIONAL DRUG USE DRUG USE?NO CAFFEINE CAFFEINE USE?NO SEXUAL HX HAD SEX IN THE LAST 12 MONTHS (VAGINAL, ORAL, OR ANAL)?NO HAVE YOU EVER HAD AN STD?NO HIV / HEP-C SCREENING HIV TEST OFFERED TO PATIENT:YES DATE OFFERED:10/19/2020 TEST ACCEPTED:NO REASON:PATIENT DECLINED BROCHURE PROVIDED TO PATIENTYES HEP-C TEST OFFERED TO PATIENT:YES DATE OFFERED:10/19/2020 TEST ACCEPTED:NO REASON:PATIENT DECLINED GNOSTICISM [id number] RASTAFARIAN LANGUAGE LANGUAGES SPOKEN:BENGALI EDUCATION LEVEL OF EDUCATION:COLLEGE DID 2 YEARS OF COLLEGE LEARNING BARRIERS / SPECIAL NEEDS CHANGE FROM LAST VISIT?NO BARRIERS TO LEARNING?NO HEARING IMPAIRED?NO VISION IMPAIRED?YES :CORRECTIVE LENSES READING GLASSES COGNITIVELY IMPAIRED?YES : SOME TIMES READINESS TO LEARN?YES LEARNING PREFERENCES?NO LEARNING CAPABILITIES PRESENT?YES EMOTIONAL BARRIERS?YES COMMENTS DEPRESSION/ANXIETY SPECIAL DEVICES?YES :BRACE KNEE 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 DIET: REGULAR. 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 MARITAL STATUS: .. OTHERS AT HOME: CHILD. - PFS REFERRAL NEEDED?NO CLERGY REFERRAL NEEDED?NO PUBLIC HEALTH REFERRAL NEEDED?NO WAS THE PROVIDER NOTIFIED OF ANY PERTINENT INFO? N/A HAS THE PATIENT BEEN EDUCATED REGARDING HIS/HER PLAN OF CARE?YES HAS THE PATIENT BEEN EDUCATED REGARDING PAIN, THE RISK FOR PAIN, THE IMPORTANCE OF EFFECTIVE PAIN MANAGEMENT, AND THE PAIN ASSESSMENT PROCESS?YES ADVANCE DIRECTIVE ADVANCE DIRECTIVE DISCUSSED WITH PATIENT:YES HCP - [facility] ([facility] ([facility] HOSPITALIZATION/MAJOR DIAGNOSTIC PROCEDURE FORMERLY [facility] INPATIENT ADMISSION 09/2017 FRATURE LEFT KNEE 11/2020 REVIEW OF SYSTEMS CONSTITUTIONAL: ANY RECENT FEVER NO . CHILLS NO . WEIGHT CHANGE OF UNKNOWN REASONS NO . GASTROENTEROLOGY: NEW UNEXPLAINABLE CHANGES IN BOWEL CONTROL NO . CONSTIPATION NO . GENITOURINARY: ANY NEW CHANGE IN BLADDER CONTROL? NO . NEUROLOGY: NEW ONSET DIZZINESS OR NEUROLOGICAL CHANGES NOT MENTIONED NO . NEW NUMBNESS OR PAIN PATTERNS NOT MENTIONED AND PERTINENT TO TODAY'S VISIT NO . CARDIOLOGY: NEW CHEST PRESSURE NO . PATIENT DENIES NO . RESPIRATORY: UNEXPLAINABLE COUGH NO . NEW SHORTNESS OF BREATH NO . VITAL SIGNS WT 189.0 LBS, WT-KG 85.73 KG, HT 67 IN, BMI 29.60 INDEX, BP 153/92 MM HG, HR 92 /MIN, RR 18 /MIN, TEMP 98.0 F, OXYGEN SAT % 100%, SAFE IN ENV? (Y/N) YES, NA INITIALS AW 1430T.CARLOS SHAIKH. EXAMINATION GENERAL EXAMINATION: GENERALAWAKE,ALERT ,PLEAASANT . PSYCHAFFECT NORMAL . LUNGS:LUNG WISDOM ARE CLEAR TO AUSCULTATION BILATERALLY. GOOD MOVEMENT OF AIR . HEART:S1, S2 IN A REGULAR RATE AND RHYTHM. NO SIGNIFICANT MURMURS, RUBS OR GALLOPS NOTED . ASSESSMENTS LOW BACK PAIN - M54.5 (PRIMARY) TREATMENT LOW BACK PAIN REFILL HYDROCODONE-ACETAMINOPHEN TABLET, 10-325 MG, 1 TABLET NEEDED, ORALLY, EVERY 6 HRS PRN MDD4, 30 DAYS, 120 VISIT CODES [id number] OFFICE VISIT, EST PT., LEVEL 3. PROCEDURE CODES FA211 ESTABILISHED PATIENT [facility] CHARGE DISPOSITION & COMMUNICATION FOLLOW UP 3 MONTHS (REASON: MED MGMNT) ELECTRONICALLY SIGNED BY COURTNEY AAMDO ON 01/25/2021 AT 03:33 PM EDT DISCLAIMER : THIS IS A VISIT SUMMARY EXTRACTED FROM THE [employer] CHART. IT IS NOT A COPY OF THE [employer] PROGRESS NOTE. MTDD
== END ==
LOC: M PAIN 14:30
PROVIDERS: ATTEND Nurse Practitioner Family
DX: M54.5 Low back pain (principal); F32.9 Major depressive disorder, single episode, unspecified; F41.9 Anxiety disorder, unspecified; I10 Essential (primary) hypertension; F10.10 Alcohol abuse, uncomplicated; Z87.442 Personal history of urinary calculi; M47.816 Spondylosis without myelopathy or radiculopathy, lumbar region; F17.210 Nicotine dependence, cigarettes, uncomplicated; Z79.891 Long term (current) use of opiate analgesic; Z79.899 Other long term (current) drug therapy

== ENCOUNTER → 2021-02-28 | Outpatient (REF) ==
[~2021-02-28] MED LIST changes: -QUET50TA3 PO; +QUET50TA4 PO
--- NOTE | 2021-02-28 14:16 | REP ---
INDICATION: ARTHRITIS. COMPARISON: 03/03/2018 TECHNIQUE: Limited three views FINDINGS: Vertebral body height is unchanged. There is a grade 2 L5 upon S1 spondylolisthesis increased somewhat from the prior exam. Note is again made of bilateral L5 spondylolysis. There is disc space narrowing at all levels status quo to slightly increased. Degenerative facet joint changes are again seen bilaterally. Small marginal osteophytes are seen along left-sided spine at every level. IMPRESSION: Limited exam showing chronic changes as described above. <Electronically signed by Davonte Felix > 02/28/21 [id number]
== END ==
LOC: M PLAIMG 12:33
PROVIDERS: ATTEND Internal Medicine
DX: M19.90 Unspecified osteoarthritis, unspecified site (principal)

== ENCOUNTER → 2021-03-20 | Outpatient (CLI) | payer OTHER | LOC: M PAIN 14:00 | PROVIDERS: ATTEND Anesthesiology | DX: M54.5 Low back pain (principal); F32.9 Major depressive disorder, single episode, unspecified; I10 Essential (primary) hypertension; F10.10 Alcohol abuse, uncomplicated; F17.210 Nicotine dependence, cigarettes, uncomplicated; Z87.442 Personal history of urinary calculi; Z79.891 Long term (current) use of opiate analgesic; Z79.899 Other long term (current) drug therapy ==

== ENCOUNTER → 2021-06-08 | Outpatient (CLI) | payer OTHER | LOC: M PAIN 13:45 | PROVIDERS: ATTEND Anesthesiology | DX: M54.50 Low back pain, unspecified (principal); G89.29 Other chronic pain; F17.210 Nicotine dependence, cigarettes, uncomplicated; Z86.59 Personal history of other mental and behavioral disorders; Z79.899 Other long term (current) drug therapy ==

== ENCOUNTER → 2021-07-05 | Outpatient (CLI) | payer OTHER | LOC: M PLAIMG 15:00 | PROVIDERS: ATTEND Nurse Practitioner Family | DX: M54.59 Other low back pain (principal) ==

== ENCOUNTER → 2021-07-06 | Outpatient (CLI) | payer OTHER | LOC: M PAIN 15:00 → M TMPAIN 15:00 | PROVIDERS: ATTEND Anesthesiology | DX: M54.50 Low back pain, unspecified (principal); M51.16 Intervertebral disc disorders with radiculopathy, lumbar region; M46.40 Discitis, unspecified, site unspecified; F32.A Depression, unspecified; F41.9 Anxiety disorder, unspecified; I10 Essential (primary) hypertension; F10.10 Alcohol abuse, uncomplicated; F17.210 Nicotine dependence, cigarettes, uncomplicated; Z79.891 Long term (current) use of opiate analgesic; Z79.899 Other long term (current) drug therapy ==

== ENCOUNTER → 2021-08-20 | Outpatient (CLI) | payer OTHER | LOC: M PAIN 14:15 | PROVIDERS: ATTEND Nurse Practitioner Family | DX: M51.16 Intervertebral disc disorders with radiculopathy, lumbar region (principal); F32.A Depression, unspecified; F41.9 Anxiety disorder, unspecified; I10 Essential (primary) hypertension; F17.210 Nicotine dependence, cigarettes, uncomplicated; F10.10 Alcohol abuse, uncomplicated; Z79.891 Long term (current) use of opiate analgesic; Z87.442 Personal history of urinary calculi; Z79.899 Other long term (current) drug therapy ==

== ENCOUNTER → 2021-09-06 | Outpatient (CLI) | payer MEDICAID, OTHER, SELFPAY | LOC: M RAD 11:32 | PROVIDERS: ATTEND Anesthesiology | DX: M46.40 Discitis, unspecified, site unspecified (principal) | CPT/HCPCS: 78315; A9503 ==

== ENCOUNTER → 2021-10-05 | Outpatient (CLI) | payer OTHER | LOC: M PAIN 14:15 | PROVIDERS: ATTEND Nurse Practitioner Family | DX: M51.16 Intervertebral disc disorders with radiculopathy, lumbar region (principal); F32.A Depression, unspecified; F41.9 Anxiety disorder, unspecified; I10 Essential (primary) hypertension; F10.10 Alcohol abuse, uncomplicated; Z87.442 Personal history of urinary calculi; Z79.891 Long term (current) use of opiate analgesic; Z79.899 Other long term (current) drug therapy; F17.210 Nicotine dependence, cigarettes, uncomplicated ==

== ENCOUNTER → 2021-10-11 | Outpatient (CLI) | payer OTHER | LOC: M PAIN 15:00 | PROVIDERS: ATTEND Anesthesiology | DX: M51.16 Intervertebral disc disorders with radiculopathy, lumbar region (principal); R52 Pain, unspecified; F32.A Depression, unspecified; F41.9 Anxiety disorder, unspecified; I10 Essential (primary) hypertension; F10.10 Alcohol abuse, uncomplicated; Z87.442 Personal history of urinary calculi; Z79.899 Other long term (current) drug therapy; F17.210 Nicotine dependence, cigarettes, uncomplicated ==

== ENCOUNTER 2021-11-17 11:06 | Emergency (ER) | payer OTHER ==
[~2021-11-17] VITALS: Ht 175.3 cm; Wt 93.2 kg
[2021-11-17] MEDS ORDERED: ZALE10CA PO (11:14)
[2021-11-17] MEDS ORDERED: ALPRAZolam 0.5 MG TAB PO ONE (13:25)
[2021-11-17] MEDS ORDERED: XANA1TAB2 PO (13:58)
[2021-11-17 14:23] VITALS: BP 149/92
== END 2021-11-17 14:26 | disposition home or self-care (01) ==
LOC: M ED 11:06
DX: F41.1 Generalized anxiety disorder (principal); Z76.0 Encounter for issue of repeat prescription; I10 Essential (primary) hypertension; E78.5 Hyperlipidemia, unspecified; K21.9 Gastro-esophageal reflux disease without esophagitis; F17.200 Nicotine dependence, unspecified, uncomplicated; Z79.899 Other long term (current) drug therapy

== ENCOUNTER 2021-12-03 18:24 | Inpatient (IN) | payer MEDICAID, OTHER ==
[~2021-12-03] VITALS: Ht 175.3 cm; Wt 95.3 kg
[~2021-12-03 18:24] MED LIST changes: +ZALE10CA PO
[2021-12-03] MEDS ORDERED: HYDR50TA70 (18:37)
[2021-12-03 20:35] LABS: HEMATOCRIT 42.5 % (42.0-52.0); HEMOGLOBIN 14.8 g/dl (13.5-17.5); MEAN CORPUSCULAR HEMOGLOBIN 33.2 pg (27.0-33.0); MEAN CORPUSCULAR HGB CONC 34.8 g/dl (32.0-36.5); MEAN CORPUSCULAR VOLUME 95.3 fl (80.0-96.0); PLATELET COUNT, AUTOMATED 243 10^3/uL (150-450); RED BLOOD COUNT 4.46 10^6/uL (4.30-6.10); WHITE BLOOD COUNT 15.6 10^3/uL (4.0-10.0)
[2021-12-03 21:03] LABS: AMPHETAMINES LEVEL URINE POSITIVE (NEGATIVE); BARBITURATES URINE NEGATIVE (NEGATIVE); BENZODIAZEPINES URINE POSITIVE (NEGATIVE); CANNABINOIDS URINE NEGATIVE (NEGATIVE); COCAINE METABOLITE URINE NEGATIVE (NEGATIVE); METHADONE URINE NEGATIVE (NEGATIVE); OPIATES URINE POSITIVE (NEGATIVE); PHENCYCLIDINE URINE NEGATIVE (NEGATIVE)
[2021-12-03 21:04] LABS: ACETAMINOPHEN LEVEL < 2.0 UG/ML (10.0-30.0); ALBUMIN 3.6 GM/DL (3.2-5.2); ALT/SGPT 32 U/L (12-78); BILIRUBIN,DIRECT 0.2 MG/DL (0.0-0.2); BILIRUBIN,TOTAL 0.3 MG/DL (0.2-1.0); BLOOD UREA NITROGEN 17 MG/DL (7-18); CALCIUM LEVEL 8.9 MG/DL (8.8-10.2); CARBON DIOXIDE LEVEL 27 MEQ/L (21-32); CHLORIDE LEVEL 105 MEQ/L (98-107); CREATININE FOR GFR 1.24 MG/DL (0.70-1.30); ETHYL ALCOHOL (ETHANOL) < 0.003 % (0.000-0.010); GLOMERULAR FILTRATION RATE > 60.0 (>49); GLUCOSE, FASTING 106 MG/DL (70-100); SALICYLATE LEVEL 4.3 MG/DL (5.0-30.0); SODIUM LEVEL 138 MEQ/L (136-145); TOTAL PROTEIN 7.2 GM/DL (6.4-8.2)
[2021-12-03 21:09] LABS: RSV AMPLIFICATION NEGATIVE (NEGATIVE)
[2021-12-03] MEDS ORDERED: LORazepam 1 MG TAB PO STA (23:08)
[2021-12-03] MEDS ORDERED: HYDR50TA70 PO (23:28)
[2021-12-03] MEDS ORDERED: ZALE10CA PO (23:28)
[2021-12-03] MEDS ORDERED: ALPR0.5T3 PO (23:28)
[2021-12-03] MEDS ORDERED: ADDE20TA PO (23:28)
[2021-12-03] MEDS ORDERED: C 50TAB PO (23:28)
[2021-12-03] MEDS ORDERED: HOME MED LIST COMPLETE! XX SCH (23:30)
[2021-12-04] MEDS ORDERED: MAALOX 30 ML SUSP *UDC PO PRN (00:10)
[2021-12-04] MEDS ORDERED: ACETAMINOPHEN TAB 650MG DOSE (2X325MG) PO PRN (00:10)
[2021-12-04] MEDS ORDERED: MOM 30ML SUSPENSION UDC PO PRN (00:10)
[2021-12-04 02:17] VITALS: BP 121/72
[2021-12-04] MEDS ORDERED: ADDERALL 5 MG TAB PO PRN (08:00)
[2021-12-04] MEDS: ASCORBIC ACID 500 MG TAB PO SCH (08:33)
[2021-12-04] MEDS: hydrOXYzine 50 MG TAB PO SCH ×4 (08:33→21:17)
[2021-12-04] MEDS: NICOTINE 21MG/24HR 1 EA TRANSDERMAL TD SCH (08:33)
[2021-12-04] MEDS: DULoxetine 20 MG CAP (CYMBALTA) PO SCH (10:28)
[2021-12-04] MEDS: risperiDONE 0.5 MG TAB PO PRN ×3 (10:29→21:17)
[2021-12-04] MEDS ORDERED: ENTER DRUG NAME HERE (PATIENT'S OWN MED) PO SCH (21:00)
[2021-12-04] MEDS: traZODone 50 MG TAB PO PRN (21:17)
[2021-12-05 06:26] VITALS: BP 158/69
[2021-12-05] MEDS: DULoxetine 20 MG CAP (CYMBALTA) PO SCH (10:46)
[2021-12-05] MEDS: ASCORBIC ACID 500 MG TAB PO SCH (10:46)
[2021-12-05] MEDS: hydrOXYzine 50 MG TAB PO SCH ×4 (10:46→20:54)
[2021-12-05] MEDS: NICOTINE 21MG/24HR 1 EA TRANSDERMAL TD SCH (10:47)
[2021-12-05] MEDS: risperiDONE 0.5 MG TAB PO PRN (11:20)
[2021-12-05] MEDS: ALPRAZolam 0.5 MG TAB PO PRN ×2 (15:19→20:58)
[2021-12-05 18:20] VITALS: BP 156/96
[2021-12-05] MEDS: traZODone 50 MG TAB PO PRN (20:54)
[2021-12-06 06:52] VITALS: BP 153/82
[2021-12-06] MEDS: DULoxetine 20 MG CAP (CYMBALTA) PO SCH (08:46)
[2021-12-06] MEDS: ASCORBIC ACID 500 MG TAB PO SCH (08:46)
[2021-12-06] MEDS: hydrOXYzine 50 MG TAB PO SCH ×4 (08:46→21:31)
[2021-12-06] MEDS: NICOTINE 21MG/24HR 1 EA TRANSDERMAL TD SCH (08:48)
[2021-12-06] MEDS: ALPRAZolam 0.5 MG TAB PO PRN ×2 (11:44→21:32)
[2021-12-06 16:48] VITALS: BP 153/82
[2021-12-06] MEDS: traZODone 50 MG TAB PO PRN (21:31)
[2021-12-07 06:22] VITALS: BP 158/94
[2021-12-07] MEDS: DULoxetine 20 MG CAP (CYMBALTA) PO SCH (08:36)
[2021-12-07] MEDS: ASCORBIC ACID 500 MG TAB PO SCH (08:36)
[2021-12-07] MEDS: NICOTINE 21MG/24HR 1 EA TRANSDERMAL TD SCH (08:37)
[2021-12-07] MEDS: ALPRAZolam 0.5 MG TAB PO PRN (09:15)
[2021-12-07] MEDS ORDERED: CYMB1CAP4 PO ×2 (09:17→09:20)
[2021-12-07] MEDS ORDERED: TRAZ-252 PO (09:17)
[2021-12-07] MEDS ORDERED: ASCO50TA PO (09:17)
[2021-12-07] MEDS ORDERED: HYDR50TA70 PO (09:17)
[2021-12-07] MEDS ORDERED: NICO21PAT TD (09:17)
[2021-12-07] MEDS ORDERED: ALPR0.5T3 PO (09:17)
[2021-12-07] MEDS ORDERED: RISP-7 PO (09:17)
[2021-12-07] MEDS ORDERED: HYDR-3363 PO (09:17)
[2021-12-07] MEDS: hydrOXYzine 50 MG TAB PO SCH (12:58)
== END 2021-12-07 13:19 | disposition home or self-care (01) | DRG 754 ==
LOC: M ED 18:24 → M ED INP 12-04 00:06 → M PSY 12-04 02:10
PROVIDERS: ADMIT Psychiatry & Neurology Psychiatry; ATTEND Psychiatry & Neurology Psychiatry
DX: F32.9 Major depressive disorder, single episode, unspecified (principal); I10 Essential (primary) hypertension; F41.1 Generalized anxiety disorder; F17.210 Nicotine dependence, cigarettes, uncomplicated; G89.29 Other chronic pain; G24.01 Drug induced subacute dyskinesia; F95.9 Tic disorder, unspecified; F90.9 Attention-deficit hyperactivity disorder, unspecified type; M71.21 Synovial cyst of popliteal space [Baker], right knee; M51.16 Intervertebral disc disorders with radiculopathy, lumbar region; Z79.899 Other long term (current) drug therapy; Z59.9 Problem related to housing and economic circumstances, unspecified; Z56.3 Stressful work schedule

== ENCOUNTER 2022-02-15 20:57 | Emergency (ER) | payer MEDICAID, OTHER, SELFPAY ==
[~2022-02-15] VITALS: Ht 175.3 cm; Wt 90.9 kg
[~2022-02-15 20:57] MED LIST changes: +ADDE20TA PO; +ALPR0.5T3 PO; +ASCO50TA PO; +C 50TAB PO; +CYMB1CAP4 PO; +HYDR50TA70; +HYDR50TA70 PO; +NICO21PAT TD; +RISP-7 PO; +TRAZ-252 PO
[2022-02-15 20:58] VITALS: BP 162/93
[2022-02-15 23:13] LABS: BASO % 0.2 % (0.0-1.0); EOS % 0.2 % (0.0-3.0); HEMATOCRIT 44.5 % (42.0-52.0); HEMOGLOBIN 15.8 g/dl (13.5-17.5); LYMPH # 0.7 10^3/uL (1.5-5.0); LYMPH % 10.4 % (24.0-44.0); MEAN CORPUSCULAR HEMOGLOBIN 33.8 pg (27.0-33.0); MEAN CORPUSCULAR HGB CONC 35.5 g/dl (32.0-36.5); MEAN CORPUSCULAR VOLUME 95.3 fl (80.0-96.0); MONO # 0.6 10^3/uL (0.0-0.8); MONO % 8.4 % (2.0-8.0); NEUTROPHILS # 5.4 10^3/uL (1.5-8.5); NEUTROPHILS % 80.5 % (36.0-66.0); PLATELET COUNT, AUTOMATED 174 10^3/uL (150-450); RED BLOOD COUNT 4.67 10^6/uL (4.30-6.10); WHITE BLOOD COUNT 6.7 10^3/uL (4.0-10.0)
[2022-02-15 23:33] LABS: ALBUMIN 3.7 GM/DL (3.2-5.2); ALT/SGPT 67 U/L (12-78); BILIRUBIN,DIRECT 0.2 MG/DL (0.0-0.2); BILIRUBIN,TOTAL 0.3 MG/DL (0.2-1.0); BLOOD UREA NITROGEN 15 MG/DL (7-18); CALCIUM LEVEL 8.5 MG/DL (8.8-10.2); CARBON DIOXIDE LEVEL 28 MEQ/L (21-32); CHLORIDE LEVEL 101 MEQ/L (98-107); CREATININE FOR GFR 0.96 MG/DL (0.70-1.30); GLOMERULAR FILTRATION RATE > 60.0 (>49); GLUCOSE, FASTING 113 MG/DL (70-100); LIPASE 101 U/L (73-393); POTASSIUM SERUM 4.3 MEQ/L (3.5-5.1); SODIUM LEVEL 134 MEQ/L (136-145); TOTAL PROTEIN 7.2 GM/DL (6.4-8.2)
[2022-02-15 23:37] LABS: CK-MB VALUE MASS 1.1 NG/ML (<3.6); MB/CK RELATIVE INDEX 1.64 (< OR =4)
== END 2022-02-15 23:56 | disposition left against medical advice (07) ==
LOC: M ED 20:57
DX: Z53.21 Procedure and treatment not carried out due to patient leaving prior to being seen by health care provider (principal)

== ENCOUNTER 2022-03-26 13:17 | Inpatient (IN) | payer MEDICAID, OTHER ==
[~2022-03-26] VITALS: Ht 175.3 cm; Wt 83.7 kg
[2022-03-26 14:55] LABS: HEMATOCRIT 46.8 % (42.0-52.0); MEAN CORPUSCULAR HEMOGLOBIN 31.4 pg (27.0-33.0); MEAN CORPUSCULAR HGB CONC 34.2 g/dl (32.0-36.5); MEAN CORPUSCULAR VOLUME 91.9 fl (80.0-96.0); PLATELET COUNT, AUTOMATED 297 10^3/uL (150-450); RED BLOOD COUNT 5.09 10^6/uL (4.30-6.10); WHITE BLOOD COUNT 11.9 10^3/uL (4.0-10.0)
[2022-03-26 15:29] LABS: RSV AMPLIFICATION NEGATIVE (NEGATIVE)
[2022-03-26] MEDS ORDERED: hydrOXYzine 50 MG TAB PO ONE (15:40)
[2022-03-26 15:48] LABS: ACETAMINOPHEN LEVEL < 2.0 UG/ML (10.0-30.0); ALBUMIN 4.1 GM/DL (3.2-5.2); ALT/SGPT 59 U/L (12-78); BILIRUBIN,DIRECT 0.1 MG/DL (0.0-0.2); BILIRUBIN,TOTAL 0.4 MG/DL (0.2-1.0); BLOOD UREA NITROGEN 13 MG/DL (7-18); CALCIUM LEVEL 9.6 MG/DL (8.8-10.2); CARBON DIOXIDE LEVEL 25 MEQ/L (21-32); CHLORIDE LEVEL 108 MEQ/L (98-107); CREATININE FOR GFR 0.99 MG/DL (0.70-1.30); ETHYL ALCOHOL (ETHANOL) 0.006 % (0.000-0.010); GLOMERULAR FILTRATION RATE > 60.0 (>49); GLUCOSE, FASTING 108 MG/DL (70-100); POTASSIUM SERUM 4.4 MEQ/L (3.5-5.1); SALICYLATE LEVEL 3.8 MG/DL (5.0-30.0); SODIUM LEVEL 137 MEQ/L (136-145); THYROID STIMULATING HORMONE 0.331 uIU/ML (0.358-3.740); TOTAL PROTEIN 7.9 GM/DL (6.4-8.2)
[2022-03-26 17:43] LABS: AMPHETAMINES LEVEL URINE NEGATIVE (NEGATIVE); BARBITURATES URINE NEGATIVE (NEGATIVE); BENZODIAZEPINES URINE NEGATIVE (NEGATIVE); CANNABINOIDS URINE NEGATIVE (NEGATIVE); COCAINE METABOLITE URINE NEGATIVE (NEGATIVE); METHADONE URINE NEGATIVE (NEGATIVE); OPIATES URINE POSITIVE (NEGATIVE); PHENCYCLIDINE URINE NEGATIVE (NEGATIVE)
[2022-03-26] MEDS ORDERED: ALPRAZolam 0.5 MG TAB PO ONE (20:15)
[2022-03-26] MEDS ORDERED: traZODone 50 MG TAB PO ONE (23:00)
[2022-03-26] MEDS ORDERED: DULoxetine 20 MG CAP (CYMBALTA) PO ONE (23:00)
[2022-03-27] MEDS ORDERED: hydrOXYzine 50 MG TAB PO ONE (08:25)
[2022-03-27] MEDS ORDERED: ZALE10CA PO (08:33)
[2022-03-27] MEDS ORDERED: HYDR100C PO (08:33)
[2022-03-27] MEDS ORDERED: HYDR-4517 PO (08:33)
[2022-03-27] MEDS ORDERED: ALBU8.5H INH (08:35)
[2022-03-27] MEDS ORDERED: CYMB1CAP5 PO (08:35)
[2022-03-27] MEDS ORDERED: DULO1CAP4 PO (08:35)
[2022-03-27] MEDS ORDERED: ASPI-1 PO (08:35)
[2022-03-27] MEDS ORDERED: CLON-412 PO (08:35)
[2022-03-27] MEDS ORDERED: TRAZ-257 PO (08:35)
[2022-03-27] MEDS ORDERED: traZODone 100 MG TAB PO PRN (08:40)
[2022-03-27] MEDS ORDERED: HOME MED LIST COMPLETE! XX SCH (08:40)
[2022-03-27] MEDS: hydrOXYzine 50 MG TAB PO SCH ×2 (08:48→13:01)
[2022-03-27] MEDS ORDERED: DULoxetine 30MG CAPSULE (CYMBALTA) PO SCH (09:00)
[2022-03-27] MEDS ORDERED: cloNIDine 0.1MG TABLET PO SCH (09:00)
[2022-03-27] MEDS ORDERED: ASPIRIN 325 MG TAB PO SCH (09:00)
[2022-03-27] MEDS ORDERED: ALPRAZolam 0.5 MG TAB PO ONE (11:35)
[2022-03-27] MEDS ORDERED: ACETAMINOPHEN TAB 650MG DOSE (2X325MG) PO ONE (13:05)
[2022-03-27] MEDS ORDERED: ALBUTEROL 90 MCG/ACT 8GM HFA INHALER INH PRN (15:50)
[2022-03-27] MEDS ORDERED: MAALOX 30 ML SUSP *UDC PO PRN (15:50)
[2022-03-27] MEDS ORDERED: traZODone 50 MG TAB PO PRN (15:50)
[2022-03-27] MEDS ORDERED: MOM 30ML SUSPENSION UDC PO PRN (15:50)
[2022-03-27 16:34] VITALS: BP 133/78
[2022-03-27] MEDS: cloNIDine 0.1MG TABLET PO SCH ×2 (18:01→21:54)
[2022-03-27] MEDS: IBUPROFEN 400MG TAB PO PRN (18:04)
[2022-03-27] MEDS ORDERED: DULoxetine 20 MG CAP (CYMBALTA) PO SCH (21:00)
[2022-03-27] MEDS: traZODone 100 MG TAB PO SCH (21:54)
[2022-03-27] MEDS: DULoxetine 20 MG CAP (CYMBALTA) PO SCH (21:54)
[2022-03-28 06:35] VITALS: BP 125/76
[2022-03-28] MEDS: cloNIDine 0.1MG TABLET PO SCH ×3 (08:34→21:53)
[2022-03-28] MEDS: ASPIRIN 325 MG TAB PO SCH (08:34)
[2022-03-28] MEDS: IBUPROFEN 400MG TAB PO PRN (08:35)
[2022-03-28] MEDS: hydrOXYzine 50 MG TAB PO PRN (08:35)
[2022-03-28] MEDS ORDERED: DULoxetine 30MG CAPSULE (CYMBALTA) PO SCH (09:00)
[2022-03-28] MEDS: busPIRone 5 MG TAB PO SCH ×2 (15:14→21:53)
[2022-03-28] MEDS: NICOTINE 21MG/24HR 1 EA TRANSDERMAL TD SCH (15:14)
[2022-03-28 17:58] VITALS: BP 131/89
[2022-03-28] MEDS: DULoxetine 20 MG CAP (CYMBALTA) PO SCH (21:53)
[2022-03-28] MEDS: traZODone 100 MG TAB PO SCH (21:53)
[2022-03-29 06:18] VITALS: BP 157/91
[2022-03-29] MEDS: busPIRone 5 MG TAB PO SCH ×3 (09:15→21:03)
[2022-03-29] MEDS: DULoxetine 20 MG CAP (CYMBALTA) PO SCH ×2 (09:15→21:04)
[2022-03-29] MEDS: NICOTINE 21MG/24HR 1 EA TRANSDERMAL TD SCH (09:15)
[2022-03-29] MEDS: ASPIRIN 325 MG TAB PO SCH (09:15)
[2022-03-29] MEDS: cloNIDine 0.1MG TABLET PO SCH ×3 (09:15→21:04)
[2022-03-29] MEDS: IBUPROFEN 400MG TAB PO PRN ×3 (09:17→21:03)
[2022-03-29 18:09] VITALS: BP 155/84
[2022-03-29] MEDS: traZODone 100 MG TAB PO SCH (21:03)
[2022-03-30 06:45] VITALS: BP 148/83
[2022-03-30] MEDS: OLANZapine 5 MG TAB PO PRN ×2 (07:43→14:01)
[2022-03-30] MEDS: busPIRone 5 MG TAB PO SCH ×3 (09:56→20:54)
[2022-03-30] MEDS: NICOTINE 21MG/24HR 1 EA TRANSDERMAL TD SCH (09:56)
[2022-03-30] MEDS: ASPIRIN 325 MG TAB PO SCH (09:56)
[2022-03-30] MEDS: cloNIDine 0.1MG TABLET PO SCH ×3 (09:57→20:54)
[2022-03-30] MEDS: DULoxetine 20 MG CAP (CYMBALTA) PO SCH ×2 (09:57→20:54)
[2022-03-30] MEDS: IBUPROFEN 400MG TAB PO PRN (14:00)
[2022-03-30 18:26] VITALS: BP 132/70
[2022-03-30] MEDS: traZODone 100 MG TAB PO SCH (20:54)
[2022-03-30] MEDS: hydrOXYzine 50 MG TAB PO PRN (20:56)
[2022-03-31 06:34] VITALS: BP 132/78
[2022-03-31] MEDS: NICOTINE 21MG/24HR 1 EA TRANSDERMAL TD SCH (08:54)
[2022-03-31] MEDS: cloNIDine 0.1MG TABLET PO SCH ×2 (08:54→16:33)
[2022-03-31] MEDS: ASPIRIN 325 MG TAB PO SCH (08:55)
[2022-03-31] MEDS: DULoxetine 20 MG CAP (CYMBALTA) PO SCH (08:55)
[2022-03-31] MEDS: busPIRone 5 MG TAB PO SCH ×2 (08:55→16:32)
[2022-03-31] MEDS: IBUPROFEN 400MG TAB PO PRN (14:02)
[2022-03-31 16:33] VITALS: BP 132/78
[2022-03-31 18:00] VITALS: BP 150/80
[2022-03-31] MEDS ORDERED: traZODone 50 MG TAB PO SCH (21:00)
== END 2022-03-31 19:27 | disposition short-term general hospital (02) | DRG 756 ==
LOC: M ED 13:17 → M ED INP 03-27 15:48 → M PSY 03-27 16:45
PROVIDERS: ADMIT Psychiatry & Neurology Psychiatry; ATTEND Student in an Organized Health Care Education/Training Program
DX: F41.1 Generalized anxiety disorder (principal); I62.01 Nontraumatic acute subdural hemorrhage; Z78.1 Physical restraint status; R45.851 Suicidal ideations; F32.9 Major depressive disorder, single episode, unspecified; M51.16 Intervertebral disc disorders with radiculopathy, lumbar region; F95.9 Tic disorder, unspecified; G24.01 Drug induced subacute dyskinesia; F90.9 Attention-deficit hyperactivity disorder, unspecified type; I10 Essential (primary) hypertension; M19.90 Unspecified osteoarthritis, unspecified site; M71.21 Synovial cyst of popliteal space [Baker], right knee; F17.200 Nicotine dependence, unspecified, uncomplicated; Z79.82 Long term (current) use of aspirin; Z79.899 Other long term (current) drug therapy

== ENCOUNTER 2022-03-31 17:47 | Inpatient (IN) | payer OTHER ==
[~2022-03-31] VITALS: Ht 175.3 cm; Wt 84.3 kg
[~2022-03-31 17:47] MED LIST changes: +ALBU8.5H INH; +ASPI-1 PO; +CLON-412 PO; +CYMB1CAP5 PO; +DULO1CAP4 PO; +HYDR100C PO; +TRAZ-257 PO
[2022-03-31] MEDS ORDERED: hydrOXYzine 50 MG TAB PO PRN (19:10)
[2022-03-31 20:00] VITALS: BP 149/99
[2022-03-31 21:00] LABS: HEMATOCRIT 38.4 % (42.0-52.0); HEMOGLOBIN 13.4 g/dl (13.5-17.5); MEAN CORPUSCULAR HEMOGLOBIN 32.3 pg (27.0-33.0); MEAN CORPUSCULAR HGB CONC 34.9 g/dl (32.0-36.5); MEAN CORPUSCULAR VOLUME 92.5 fl (80.0-96.0); PLATELET COUNT, AUTOMATED 276 10^3/uL (150-450); RED BLOOD COUNT 4.15 10^6/uL (4.30-6.10); WHITE BLOOD COUNT 10.7 10^3/uL (4.0-10.0)
[2022-03-31] MEDS: busPIRone 5 MG TAB PO SCH (21:17)
[2022-03-31] MEDS: cloNIDine 0.1MG TABLET PO SCH (21:17)
[2022-03-31] MEDS: traZODone 50 MG TAB PO SCH (21:17)
[2022-03-31] MEDS: DULoxetine 20 MG CAP (CYMBALTA) PO SCH (21:17)
[2022-03-31 21:42] LABS: ALBUMIN 3.5 GM/DL (3.2-5.2); ALT/SGPT 32 U/L (12-78); BILIRUBIN,TOTAL 0.2 MG/DL (0.2-1.0); BLOOD UREA NITROGEN 20 MG/DL (7-18); CALCIUM LEVEL 9.1 MG/DL (8.8-10.2); CARBON DIOXIDE LEVEL 26 MEQ/L (21-32); CHLORIDE LEVEL 106 MEQ/L (98-107); CREATININE FOR GFR 1.07 MG/DL (0.70-1.30); GLOMERULAR FILTRATION RATE > 60.0 (>49); GLUCOSE, FASTING 107 MG/DL (70-100); POTASSIUM SERUM 4.2 MEQ/L (3.5-5.1); SODIUM LEVEL 138 MEQ/L (136-145)
[2022-04-01] VITALS (14 sets, daily range): BP systolic 101–154; BP diastolic 56–110
[2022-04-01] MEDS ORDERED: BENZONATATE 100MG CAPSULE PO PRN (00:45)
[2022-04-01 04:35] LABS: BASO # 0.1 10^3/uL (0.0-0.2); BASO % 0.5 % (0.0-1.0); EOS # 0.4 10^3/uL (0.0-0.5); EOS % 4.1 % (0.0-3.0); HEMATOCRIT 37.9 % (42.0-52.0); HEMOGLOBIN 12.8 g/dl (13.5-17.5); LYMPH # 2.9 10^3/uL (1.5-5.0); LYMPH % 26.7 % (24.0-44.0); MEAN CORPUSCULAR HEMOGLOBIN 31.8 pg (27.0-33.0); MEAN CORPUSCULAR HGB CONC 33.8 g/dl (32.0-36.5); MEAN CORPUSCULAR VOLUME 94.3 fl (80.0-96.0); MONO # 0.8 10^3/uL (0.0-0.8); MONO % 7.2 % (2.0-8.0); NEUTROPHILS # 6.7 10^3/uL (1.5-8.5); NEUTROPHILS % 61.1 % (36.0-66.0); PLATELET COUNT, AUTOMATED 257 10^3/uL (150-450); RED BLOOD COUNT 4.02 10^6/uL (4.30-6.10); WHITE BLOOD COUNT 10.9 10^3/uL (4.0-10.0)
[2022-04-01 05:15] LABS: BLOOD UREA NITROGEN 17 MG/DL (7-18); CALCIUM LEVEL 8.6 MG/DL (8.8-10.2); CARBON DIOXIDE LEVEL 26 MEQ/L (21-32); CHLORIDE LEVEL 109 MEQ/L (98-107); CREATININE FOR GFR 1.03 MG/DL (0.70-1.30); GLOMERULAR FILTRATION RATE > 60.0 (>49); GLUCOSE, FASTING 98 MG/DL (70-100); POTASSIUM SERUM 4.2 MEQ/L (3.5-5.1); SODIUM LEVEL 140 MEQ/L (136-145)
[2022-04-01] MEDS: ACETAMINOPHEN TAB 650MG DOSE (2X325MG) PO PRN ×2 (06:13→15:35)
[2022-04-01] MEDS: busPIRone 5 MG TAB PO SCH ×3 (08:52→20:27)
[2022-04-01] MEDS: DULoxetine 20 MG CAP (CYMBALTA) PO SCH ×2 (08:53→20:27)
[2022-04-01] MEDS: NICOTINE 21MG/24HR 1 EA TRANSDERMAL TD SCH (08:53)
[2022-04-01] MEDS: cloNIDine 0.1MG TABLET PO SCH ×3 (08:53→20:26)
[2022-04-01] MEDS ORDERED: HOME MED LIST COMPLETE! XX SCH (10:30)
[2022-04-01] MEDS: traZODone 50 MG TAB PO SCH (20:26)
[2022-04-01] MEDS: OLANZapine 5 MG TAB PO PRN (22:04)
[2022-04-02] VITALS: BP 103/63
[2022-04-02 04:00] VITALS: BP 127/82
[2022-04-02 04:30] LABS: BASO # 0.1 10^3/uL (0.0-0.2); BASO % 0.5 % (0.0-1.0); EOS # 0.4 10^3/uL (0.0-0.5); EOS % 3.8 % (0.0-3.0); HEMATOCRIT 39.1 % (42.0-52.0); HEMOGLOBIN 13.4 g/dl (13.5-17.5); LYMPH # 2.8 10^3/uL (1.5-5.0); LYMPH % 26.5 % (24.0-44.0); MEAN CORPUSCULAR HEMOGLOBIN 31.9 pg (27.0-33.0); MEAN CORPUSCULAR HGB CONC 34.3 g/dl (32.0-36.5); MEAN CORPUSCULAR VOLUME 93.1 fl (80.0-96.0); MONO # 0.7 10^3/uL (0.0-0.8); MONO % 6.9 % (2.0-8.0); NEUTROPHILS # 6.6 10^3/uL (1.5-8.5); NEUTROPHILS % 61.7 % (36.0-66.0); PLATELET COUNT, AUTOMATED 274 10^3/uL (150-450); WHITE BLOOD COUNT 10.7 10^3/uL (4.0-10.0)
[2022-04-02 05:04] LABS: BLOOD UREA NITROGEN 18 MG/DL (7-18); CARBON DIOXIDE LEVEL 26 MEQ/L (21-32); CHLORIDE LEVEL 108 MEQ/L (98-107); CREATININE FOR GFR 1.09 MG/DL (0.70-1.30); GLOMERULAR FILTRATION RATE > 60.0 (>49); GLUCOSE, FASTING 112 MG/DL (70-100); POTASSIUM SERUM 4.4 MEQ/L (3.5-5.1); SODIUM LEVEL 140 MEQ/L (136-145)
[2022-04-02 08:00] VITALS: BP 100/56
[2022-04-02] MEDS: busPIRone 5 MG TAB PO SCH ×3 (08:44→20:08)
[2022-04-02] MEDS: DULoxetine 20 MG CAP (CYMBALTA) PO SCH ×2 (08:45→20:08)
[2022-04-02] MEDS: cloNIDine 0.1MG TABLET PO SCH ×3 (08:45→20:08)
[2022-04-02] MEDS: NICOTINE 21MG/24HR 1 EA TRANSDERMAL TD SCH (08:46)
[2022-04-02] MEDS ORDERED: SODIUM CHLORIDE 0.9% 1000ML IV ONE (09:10)
[2022-04-02 12:00] VITALS: BP 135/81
[2022-04-02] MEDS: ACETAMINOPHEN TAB 650MG DOSE (2X325MG) PO PRN (12:18)
[2022-04-02] MEDS: risperiDONE 0.5 MG TAB PO SCH ×2 (12:37→20:09)
[2022-04-02] MEDS: OLANZapine 5 MG TAB PO PRN (15:21)
[2022-04-02 16:00] VITALS: BP 143/82
[2022-04-02 20:07] VITALS: BP 133/81
[2022-04-02] MEDS: traZODone 50 MG TAB PO SCH (20:08)
[2022-04-02] MEDS ORDERED: ZALEPLON 10 MG PO SCH (21:00)
[2022-04-03] VITALS: BP 110/62
[2022-04-03] MEDS: ACETAMINOPHEN TAB 650MG DOSE (2X325MG) PO PRN (03:12)
[2022-04-03 04:00] VITALS: BP 112/63
[2022-04-03] MEDS ORDERED: oxyCODONE 5MG TAB PO ONE (04:25)
[2022-04-03 04:57] LABS: BASO # 0.1 10^3/uL (0.0-0.2); BASO % 0.3 % (0.0-1.0); EOS # 0.4 10^3/uL (0.0-0.5); EOS % 2.4 % (0.0-3.0); HEMATOCRIT 39.8 % (42.0-52.0); HEMOGLOBIN 13.7 g/dl (13.5-17.5); LYMPH % 11.3 % (24.0-44.0); MEAN CORPUSCULAR HEMOGLOBIN 32.5 pg (27.0-33.0); MEAN CORPUSCULAR HGB CONC 34.4 g/dl (32.0-36.5); MEAN CORPUSCULAR VOLUME 94.5 fl (80.0-96.0); MONO % 5.7 % (2.0-8.0); NEUTROPHILS # 14.2 10^3/uL (1.5-8.5); NEUTROPHILS % 79.6 % (36.0-66.0); PLATELET COUNT, AUTOMATED 289 10^3/uL (150-450); RED BLOOD COUNT 4.21 10^6/uL (4.30-6.10); WHITE BLOOD COUNT 17.9 10^3/uL (4.0-10.0)
[2022-04-03 05:23] LABS: BLOOD UREA NITROGEN 25 MG/DL (7-18); CARBON DIOXIDE LEVEL 25 MEQ/L (21-32); CHLORIDE LEVEL 108 MEQ/L (98-107); CREATININE FOR GFR 1.18 MG/DL (0.70-1.30); GLOMERULAR FILTRATION RATE > 60.0 (>49); GLUCOSE, FASTING 116 MG/DL (70-100); POTASSIUM SERUM 4.1 MEQ/L (3.5-5.1); SODIUM LEVEL 139 MEQ/L (136-145)
[2022-04-03] MEDS ORDERED: SELF1KIT MC (07:52)
[2022-04-03 08:00] VITALS: BP 142/85
[2022-04-03 08:47] VITALS: BP 142/85
[2022-04-03] MEDS: busPIRone 5 MG TAB PO SCH (08:47)
[2022-04-03] MEDS: cloNIDine 0.1MG TABLET PO SCH (08:47)
[2022-04-03] MEDS: risperiDONE 0.5 MG TAB PO SCH (08:47)
[2022-04-03] MEDS: DULoxetine 20 MG CAP (CYMBALTA) PO SCH (08:47)
[2022-04-03] MEDS ORDERED: FLUBLOK(EGG FREE)(QUAD)INFLUENZA VACC 0.5ML SYRINGE 18YRS & OLDER IM.IMMUN ONE (09:10)
[2022-04-03] MEDS ORDERED: ZALE5CA PO (10:28)
[2022-04-03] MEDS ORDERED: RISP-7 PO (10:28)
[2022-04-03] MEDS ORDERED: CYMB1CAP4 PO (10:28)
[2022-04-03] MEDS ORDERED: CLONI1TA PO (10:28)
[2022-04-03] MEDS ORDERED: ZALE10CA PO (10:28)
[2022-04-03] MEDS ORDERED: HYDR-3719 PO (10:30)
[2022-04-03] MEDS ORDERED: HYDR50TA70 PO (10:34)
[2022-04-03] MEDS ORDERED: BUSP5TA PO (10:34)
[2022-04-03] MEDS ORDERED: TRAZ-252 PO (10:34)
[2022-04-03] MEDS ORDERED: DULO-34 PO (10:35)
[2022-04-03] MEDS ORDERED: ANEXSIA, NORCO 7.5MG/325MG TABLET(HYDROCODONE/APAP) PO ONE (10:35)
== END 2022-04-03 12:20 | disposition home or self-care (01) | DRG 44 ==
LOC: M ICU 19:47
PROVIDERS: ADMIT Internal Medicine Nephrology; ATTEND General Practice
DX: I62.01 Nontraumatic acute subdural hemorrhage (principal); F33.1 Major depressive disorder, recurrent, moderate; I10 Essential (primary) hypertension; M51.16 Intervertebral disc disorders with radiculopathy, lumbar region; F41.1 Generalized anxiety disorder; F95.9 Tic disorder, unspecified; G24.01 Drug induced subacute dyskinesia; F90.9 Attention-deficit hyperactivity disorder, unspecified type; M43.16 Spondylolisthesis, lumbar region; M19.90 Unspecified osteoarthritis, unspecified site; M47.26 Other spondylosis with radiculopathy, lumbar region; M71.21 Synovial cyst of popliteal space [Baker], right knee; F17.200 Nicotine dependence, unspecified, uncomplicated; R29.6 Repeated falls; Z87.442 Personal history of urinary calculi; Z79.891 Long term (current) use of opiate analgesic; Z79.82 Long term (current) use of aspirin; Z79.899 Other long term (current) drug therapy

== ENCOUNTER → 2023-03-14 | Outpatient (CLI) | payer OTHER ==
[~2023-03-14] MED LIST changes: +BUSP5TA PO; +CLONI1TA PO; +DULO-34 PO; +MECL-209 PO; -MECL1TAB31 PO; +SELF1KIT MC; +ZALE5CA PO
== END ==
LOC: M RAD 12:54
PROVIDERS: ATTEND Physician Assistant
DX: Z12.2 Encounter for screening for malignant neoplasm of respiratory organs (principal); F17.210 Nicotine dependence, cigarettes, uncomplicated

== ENCOUNTER 2025-02-09 14:35 | Emergency (ER) | payer MEDICARE, MEDICAID ==
[~2025-02-09] VITALS: Ht 175.3 cm; Wt 96.3 kg
[~2025-02-09 14:35] MED LIST changes: -FLOM0.4C39 PO; -RISP-7 PO; +RISP0.5T82 PO; +TAMS-18 PO
[2025-02-09] MEDS ORDERED: DULO1CAP6 PO ×2 (14:54→17:21)
[2025-02-09 15:24] LABS: PLATELET COUNT, AUTOMATED 265 10^3/uL (150-450)
[2025-02-09 15:57] LABS: ETHYL ALCOHOL (ETHANOL) 0.003 % (0.000-0.010)
[2025-02-09 15:59] LABS: ALT/SGPT 29 U/L (7.0-40); AST/SGOT 25 U/L (<34); CALCIUM LEVEL 9.2 MG/DL (8.3-10.6); CARBON DIOXIDE LEVEL 25 MMOL/L (20-31); CHLORIDE LEVEL 104 MMOL/L (98-107); CREATININE FOR GFR 1.11 MG/DL (0.70-1.30); GLOMERULAR FILTRATION RATE 73.2 (>49); POTASSIUM SERUM 4.1 MMOL/L (3.5-5.1); SALICYLATE LEVEL < 3.0 MG/DL (<30); SODIUM LEVEL 141 MMOL/L (136-145)
[2025-02-09] MEDS ORDERED: HOME MED LIST COMPLETE! XX SCH (16:55)
[2025-02-09 17:16] VITALS: BP 197/123
[2025-02-09] MEDS: CHLORTHALIDONE 25 MG TAB PO ONE (17:16)
[2025-02-09] MEDS ORDERED: CHLO25TA PO (17:28)
[2025-02-09 18:07] VITALS: BP 160/90
[2025-02-09 18:18] VITALS: TEMP 97.2; O2SAT 95
[2025-02-09 18:30] LABS: AMPHETAMINES LEVEL URINE NEGATIVE (NEGATIVE); BARBITURATES URINE NEGATIVE (NEGATIVE); BENZODIAZEPINES URINE NEGATIVE (NEGATIVE); CANNABINOIDS URINE NEGATIVE (NEGATIVE); COCAINE METABOLITE URINE NEGATIVE (NEGATIVE); METHADONE URINE NEGATIVE (NEGATIVE); OPIATES URINE NEGATIVE (NEGATIVE); PHENCYCLIDINE URINE NEGATIVE (NEGATIVE)
== END 2025-02-09 18:25 | disposition home or self-care (01) ==
LOC: M ED 14:35
DX: Z76.0 Encounter for issue of repeat prescription (principal); I10 Essential (primary) hypertension; E78.5 Hyperlipidemia, unspecified; F41.9 Anxiety disorder, unspecified; F32.A Depression, unspecified; F17.210 Nicotine dependence, cigarettes, uncomplicated; Z79.899 Other long term (current) drug therapy